=== PATIENT | female | born 1980 | race Caucasian/White ===

== ENCOUNTER 2018-06-13 10:53 | Outpatient (REF) | payer MEDICAID, SELFPAY ==
--- NOTE | 2018-06-13 10:30 | PAPFT_PTH ---
PATIENT: Tri Dias LOC: [facility] U#:[id number] AGE/SX: 38/F ROOM: RE06/13/[address]: TAYLOR Lovett : 1980 BED: DIS: 06/13/2018 SPEC #: [id number] RECD: 06/13/18 12:55 STATUS: DELFIN REQ #: [id number] LILI: 06/13/18 10:[address]: Mitzi Leon DEPT: [facility] Cytology RECD BY: Laura Beltran ENTERED: 06/13/18 12:55 SP TYPE: PAPFT CHRISTOPHER DR: Eric Santoyo MD Tissues: 1 - CX/ENDOCX FOR PAP SMEARS Procedures: PAP THIN PREP/UVM Screening HPV DNA PROBE Comments: [id number]
[2018-06-16 15:15] LABS: Chlamydia Result Negative; GC Result Negative; Specimen Description CERVIX
== END 2018-06-13 11:13 ==
LOC: LBN 10:53
PROVIDERS: PCP Family Medicine; Visit Provider Nurse Practitioner Family
DX: Z11.3 Encounter for screening for infections with a predominantly sexual mode of transmission (principal); Z12.4 Encounter for screening for malignant neoplasm of cervix; Z11.51 Encounter for screening for human papillomavirus (HPV)
CPT/HCPCS: 87491; 87591; 88142; 87624

== ENCOUNTER 2018-06-16 00:27 | Outpatient (CLI) | payer MEDICAID, SELFPAY ==
--- NOTE | 2018-06-16 12:00 | DI.MAMMO_ITS ---
SYMPTOMS/DIAGNOSIS: SCREENING, Z12.31 BILATERAL SCREENING MAMMOGRAM: Mammograms were interpreted according to the usual protocol including computer analysis with CAD system, tomosynthesis and C view imaging. This is a baseline examination. The patient has a strong family history of breast cancer. The breasts are composed of scattered fibroglandular densities, breast density category B. In the central subareolar region of the right breast , there is a mainly circumscribed area of nodularity measuring 9 mm in diameter. Other nodular densities are questioned in the lateral right breast. Spot compression views and ultrasound are requested for further evaluation. No suspicious abnormality seen in the left breast. There are no suspicious calcifications in either breast. IMPRESSION: Left breast category 1, negative. Right breast category 0. MQSA ASSESSMENT OF FINDINGS: Incomplete: Needs additional imaging evaluation. Category 0. Patient will receive a letter notifying them of these results. MQSA ASSESSMENT OF FINDINGS: Negative. Category 1. Patient will receive a letter notifying them of these results. BI-RADS category B. There are scattered areas of fibroglandular density.
== END 2018-06-16 00:47 ==
PROVIDERS: PCP Family Medicine; Visit Provider Nurse Practitioner Family
DX: Z12.31 Encounter for screening mammogram for malignant neoplasm of breast (principal); R92.8 Other abnormal and inconclusive findings on diagnostic imaging of breast; Z80.3 Family history of malignant neoplasm of breast
CPT/HCPCS: 77063; 77067

== ENCOUNTER 2018-06-25 01:25 | Outpatient (CLI) | payer MEDICAID, SELFPAY ==
--- NOTE | 2018-06-25 09:33 | DI.COMBO_ITS ---
SYMPTOM/DIAGNOSIS: F/U MAMMO, RT NODULARITY RIGHT BREAST ADDITIONAL VIEWS AND RIGHT BREAST ULTRASOUND: Additional images are interpreted according to the usual protocol including tomosynthesis and 2D imaging. The images reveal the breast is of moderate radiodensity. There is a small rounded, well circumscribed area of increased density in the subareolar portion of the right breast which is nonspecific in appearance. Also there is an ill defined density in the lateral portion of the right breast. Further assessment with ultrasound is recommended. Right breast ultrasound was performed and no cyst or mass is demonstrated. SUMMARY: Small densities are identified in the right breast as described above. At ultrasound, no definite abnormality is identified. Follow up right breast imaging at 6 months is recommended for further review. Breast density, category B. Category 3. MQSA ASSESSMENT OF FINDINGS: Probably benign. Six month follow-up recommended. Category 3. Patient will receive a letter notifying them of these results. BI-RADS category B. There are scattered areas of fibroglandular density.
== END 2018-06-25 01:45 ==
PROVIDERS: PCP Family Medicine; Visit Provider Nurse Practitioner Family
DX: R92.8 Other abnormal and inconclusive findings on diagnostic imaging of breast (principal)
CPT/HCPCS: 76642; 77063; 77067

== ENCOUNTER 2018-08-21 16:26 | Outpatient (CLI) | payer OTHER, SELFPAY ==
--- NOTE | 2018-08-21 14:30 | DI.RAD_ITS ---
SYMPTOMS/DIAGNOSIS: ACUTE PAIN OF LEFT KNEE, M25.562 LEFT KNEE: There are rather severe degenerative changes involving the knee without evidence of significant medial or lateral joint space narrowing. The patient is status post ACL repair. A suture anchor is positioned over the lateral cortex of the distal femur in conjunction with the ACL surgery. There is a probable joint effusion. SUMMARY: Chronic changes involving the left knee in this patient who is status post ACL repair. Also, there is apparent joint effusion. If there is further question regarding the status of the ACL graft or other internal derangement in this patient, then further assessment with MRI could be considered.
== END 2018-08-21 16:46 ==
PROVIDERS: PCP Family Medicine; Visit Provider Nurse Practitioner Family
DX: M25.562 Pain in left knee (principal); M25.462 Effusion, left knee; M17.12 Unilateral primary osteoarthritis, left knee; Z98.890 Other specified postprocedural states
CPT/HCPCS: 73562

== ENCOUNTER 2021-09-01 11:12 | Outpatient (CLI) | payer OTHER, SELFPAY ==
--- NOTE | 2021-09-01 11:00 | RT.EKG_ITS ---
APPROVED REPORT Exam: Resting ECG Reason for Exam: Irregular pulse Patient Location: O HR:76 bpm ECG Measurements Heart Rate 76 AXIS MN 128 P 63 QRSd 79 QRS 5 QT 369 T 32 QTc 415 Conclusion Sinus rhythm...normal P axis, V-rate 60- 99 Normal Electrocardiogram
== END 2021-09-01 11:13 | disposition home or self-care (01) ==
LOC: DI.CM 11:13
PROVIDERS: PCP Nurse Practitioner Family; Visit Provider Nurse Practitioner Family
DX: R00.0 Tachycardia, unspecified (principal); R09.89 Other specified symptoms and signs involving the circulatory and respiratory systems
CPT/HCPCS: 93010

== ENCOUNTER 2021-10-09 01:05 | Outpatient (RCR) | payer OTHER, SELFPAY ==
--- NOTE | 2021-10-09 11:00 | HOLTER_ITS ---
APPROVED REPORT Conclusion This is a 48-hour Holter monitor ordered for palpitations Predominant rhythm is sinus with an average heart rate of 88. Minimum was 67, maximum 127 There were very rare atrial premature beats There were occasional ventricular ectopic beats. There were several episodes of nonsustained ventric ular tachycardia, the longest of which lasted 74 beats in duration at a heart rate of 131. Patient symptoms corresponded to nonsustained ventricular tachycardia
== END 2021-10-23 23:59 | disposition home or self-care (01) ==
LOC: RT 01:05
PROVIDERS: PCP Nurse Practitioner Family; Visit Provider Nurse Practitioner Family
DX: R00.2 Palpitations (principal)
CPT/HCPCS: 93225; 93226

== ENCOUNTER 2021-10-11 02:27 | Outpatient (CLI) | payer OTHER, SELFPAY ==
[2021-10-11 13:46] LABS: Hemoglobin A1C 5.6 % (<5.7)
[2021-10-11 14:08] LABS: Anion Gap 7.8 mmol/L (3-11); BUN 9 mg/dL (7-18); CO2 28.2 mmol/L (21.0-32.0); CREATININE 0.9 mg/dL (0.55-1.02); Calcium 9.7 mg/dL (8.5-10.1); Calculated LDL 91 mg/dL (<100); Chloride 103 mmol/L (98-107); Cholesterol 157 mg/dL (<200); Glucose 88 mg/dL (74-106); HDL Cholesterol 52 mg/dL (40-60); Potassium 4.7 mmol/L (3.5-5.1); Sodium 139 mmol/L (136-145); Triglyceride 72 mg/dL (<150)
== END 2021-10-11 02:28 | disposition home or self-care (01) ==
LOC: LBO 02:27
PROVIDERS: PCP Nurse Practitioner Family; Visit Provider Nurse Practitioner Family
DX: Z00.00 Encounter for general adult medical examination without abnormal findings (principal)
CPT/HCPCS: 36415; 80048; 80061; 83036

== ENCOUNTER 2021-10-12 11:32 | Emergency (ER) | payer OTHER, SELFPAY ==
[2021-10-12] VITALS (26 sets, daily range): BP systolic 135–185; BP diastolic 69–120; PULSE 55–101; RESP 10–36; O2SAT 98–100
--- NOTE | 2021-10-12 11:30 | RT.EKG_ITS ---
APPROVED REPORT Exam: Resting ECG Reason for Exam: sob Patient Location: E HR:86 bpm ECG Measurements Heart Rate [address] 134 P 51 QRSd 81 QRS 1 QT 369 T 40 QTc 441 Conclusion Sinus rhythm...normal P axis Probable left atrial enlargement...P >50mS, <-0.10mV V1
--- NOTE | 2021-10-12 11:45 | DI.RAD_ITS ---
Exam(s) XR PORTABLE CHEST AP EXAM: XR PORTABLE CHEST AP CLINICAL HISTORY: Palpitations TECHNIQUE: 2D digital imaging was performed of the chest. One image was obtained. An AP view was ob tained. COMPARISON: No exams were available for comparison FINDINGS: MEDIASTINUM: Normal. HEART: Normal. PULMONARY VASCULATURE: Normal. LUNGS: Clear. PLEURAL SPACE: No pleural effusion or pneumothorax. BONE:Within normal limits for the patient's age. OTHER FINDINGS:Normal. IMPRESSION: No acute pulmonary findings. DATA REPOSITORY: RADIATION DOSE DELIVERED:
--- NOTE | 2021-10-12 11:59 | W.ED.GENAD ---
Discharge Plan Disposition Patient Disposition: HOME Condition: Improving Discharge Details Clinical Impression: Frequent PVCs Primary Care Provider: Carol Vo ED Provider: Joseluis Correa Home Meds and New Rx's Prescriptions: New metoprolol succinate 25 mg tablet extended release 24 hr 25 mg PO DAILY Qty: 30 0RF metoprolol succinate 25 mg tablet extended release 24 hr 25 mg PO DAILY Qty: 7 0RF Continued venlafaxine [Effexor XR] 150 mg capsule,extended release 24hr 150 mg PO DAILY Qty: 90 4RF Discharge Instructions Instructions: Heart Palpitations (ED) Additional Instructions: Please take metoprolol once daily as prescribed. We have provided you with a short-term prescription as well as one for 30 days. Please call [facility] tomorrow and asked to speak Nancy Shi their child care as she may be able to help you with filling the prescription Our care management team will arrange a follow-up for you with the electrophysiology department at [facility]. Return if you have persistent palpitations, difficulty breathing, develop chest pain, or any other acute concerns. Medical Decision Making 41-year-old female with a history of years of intermittent episodes of palpitations she says lasts from seconds to minutes and extinguishing on their own. She was evaluated with a Holter monitor this week and called into the ER today after it revealed nonsustained ventricular tachycardia. Patient arrives in no distress, she is placed on a bus driver/monitor. While interviewed initially she demonstrates 3-6 beat runs of monomorphic ventricular tachycardia. Patient placed on a bus driver/monitor, IV access established and screening laboratories obtained. Patient given fluid bolus and 2 g of magnesium. Diagnostic studies note a white count of 6, hematocrit 36, platelets 270 chemistries are reassuring, note of magnesium 1.7, TSH 1.8. Chest x-ray without findings. I reviewed the patient's Holter monitor report which reveals a predominant sinus rhythm with an average heart rate of 88, minimum with 2 7, maximum 127. Note of occasional ventricular ectopic beats. Several episodes of nonsustained ventricular tachycardia, the longest of which lasted 74 beats at a heart rate of 131. Patient given 2 g of magnesium with improvement of PVCs on the monitor. In order to rule out underlying structural heart disease I obtained a surface echocardiogram. Echocardiogram unremarkable and no evidence of structural heart disease. Patient subjectively and objectively had improvement of her palpitations and decreased evidence of PVCs on the monitor following 2 g of magnesium. She was observed on bus driver/monitor and repeat troponin obtained and negative. I did discuss the case with on-call cardiology, Dr. Christine, who recommends follow-up with electrophysiology. Patient may be a candidate for ablation. I will place her on once daily beta-angy for ease of use versus verapamil given its multi dose schedule. As the patient utilizes a mail order pharmacy, she was given two prescriptions one for 30 days worth of metoprolol as well as one for 7 days. HPI General Mode of arrival: ambulatory. Date/Time Provider Initiated Documentation: 10/12/21 11:47. Limitations to Documentation: no limitations. Information obtained by: patient. History of Present Illness 41 year old F presents to the emergency department with the chief complaint of Intermittent palpitations for months to years, Holter monitor this week, described as moderate, and is localized to the chest. Patient reports no radiation. Patient started experiencing this year(s) and it has been intermittent. improves with No relieving factors improve symptom(s), No exacerbating factors reported . Patient notes shortness of breath; denies chest pain, syncope and weakness. Patient did receive the following treatments prior to arrival, none Related Data Home Medications Medication Instructions Recorded Confirmed venlafaxine 150 mg 150 mg PO DAILY #90 tab-cap 09/01/21 10/12/21 capsule,extended release 24 hr (Effexor XR) metoprolol succinate 25 mg 25 mg PO DAILY #30 tab 10/12/21 tablet,extended release 24 hr metoprolol succinate 25 mg 25 mg PO DAILY #7 tab 10/12/21 tablet,extended release 24 hr Previous Rx's Medication Instructions Recorded venlafaxine 150 mg 150 mg PO DAILY #90 tab-cap 09/01/21 capsule,extended release 24 hr (Effexor XR) metoprolol succinate 25 mg 25 mg PO DAILY #30 tab 10/12/21 tablet,extended release 24 hr metoprolol succinate 25 mg 25 mg PO DAILY #7 tab 10/12/21 tablet,extended release 24 hr Allergies Allergy/AdvReac Type Severity Reaction Status Date / Time Sulfa (Sulfonamide Allergy Severe HIVES Unverified 10/12/21 11:59 Antibiotics) methylprednisolone AdvReac Intermediate MUSCLE Unverified 10/12/21 11:59 PAIN, JITTERY amoxicillin trihydrate AdvReac Mild GI UPSET Unverified 10/12/21 11:59 [From Augmentin] potassium clavulanate AdvReac Mild GI UPSET Unverified 10/12/21 11:59 [From Augmentin] General Stated Complaint: Palpitatns LAMONT: 2 Review of Systems Narrative: Otherwise well. States that palpitations for years. No significant exacerbating or ameliorating factors. 8 systems were reviewed and otherwise negative PFSH All Active Problems (Updated 10/12/21 @ 16:09 by Carol Vo NP) Nonsustained ventricular tachycardia (Chronic) Frequent PVCs (Acute) Major depressive disorder (Chronic) Generalized anxiety disorder (Chronic) Obesity (Chronic) Medical History Cigarette smoker Surgical History History of arthroplasty of left knee History of section History of repair of anterior cruciate ligament of left knee (2011) S/P left knee arthroscopy (2012) Family History Mother Breast cancer tested BRCA negative and Tri herself was also tested and was negative Father No problems noted. Brother No problems noted. Brother No problems noted. Sister No problems noted. Sister No problems noted. Son No problems noted. Son No problems noted. Maternal Grandfather Heart disease Hyperlipidemia Hypertension Maternal Grandmother Breast cancer x 2 Colon cancer Ovarian cancer Paternal Grandfather Heart disease Myocardial infarction Paternal Grandmother No problems noted. Social History Smoking/Tobacco Use Status: Current every day Tobacco Type: e-cigarettes Counseling given: provider counseling Smoking risk assessment performed?: Yes Alcohol Intake: current Alcohol Intake frequency: a few times a month Alcohol type: wine Drug use: Daily Substance use type: marijuana Counseling provided: other Details: daily use. referral to [facility] Household members: children Sexually active: Yes Do you think of yourself as: straight/heterosexual Current gender identity: female Do you feel safe at home: Yes Do you feel safe in your relationship?: Yes Female Reproductive History Menstrual control method: none and other (unable to get after severe preeclampsia in number 2) History History 2 Para 2 Hx # Term Pregnancies 1 Multiple births Hx # Pregnancies 1 Ectopic pregnancies AB induced Hx Number of Living Children 2 AB spontaneous Exam Narrative Exam Narrative: GEN: awake, alert, oriented 3. Pleasant, well groomed, interactive. HEAD: Normocephalic, atraumatic ENT: Mucous membranes moist, oropharynx unremarkable, External ear exam unremarkable EYES: PERRL, EOMI NECK: Full ROM, no ERIC, no menigismus CHEST/RESP: Nontender, clear to auscultation bilateral, no wheeze/rhonchi/rales CARDIOVASCULAR: RRR, no murmur, rub thiago. 2+ Rad pulse bilateral ABDOMEN: Soft, nontender, no mass. +Bowel sounds EXT: Full ROM, no edema, no rash Neuro: Grossly normal neurologic exam, conversant, interactive. Psych: Speech fluent, thoughts congruent, affect normal Course Vital Signs Vital signs: Temperature Source Skin 10/12/21 11:36 Respiratory Effort 10/12/21 11:40 Oxygen Delivery Method Room Air 10/12/21 11:36 Oxygen Flow Rate 0 10/12/21 11:36 Pain Level 0 10/12/21 11:36
[2021-10-12] MEDS: MAGNESIUM SULFATE 2 GM/50 ML BAG IVPB (12:08)
[2021-10-12] MEDS: Normal Saline 1,000 ML 1000 ML IV (12:08)
[2021-10-12 12:26] LABS: Abs Immature Grans 0.03 10^3/uL (0.0-0.06); Absolute Basophil Count 0.07 10^3/uL (0.0-0.2); Absolute Eosinophil Count 0.17 10^3/uL (0.0-0.7); Absolute Lymphocyte Count 2.62 10^3/uL (1.2-3.4); Absolute Monocyte Count 0.45 10^3/uL (0.1-0.8); Absolute Neutrophil Count 2.84 10^3/uL (1.2-6.7); Basophils % 1.1; Eosinophils % 2.8; HCT 36.8 % (36.0-46.0); HGB 12.1 g/dL (11.2-15.7); Immature Grans % 0.5; Lymphocytes % 42.4; MCH 30.2 pg (27.0-33.0); MCHC 32.9 % (32.0-36.0); MCV 91.8 fL (80-95); MPV 11.5 fL (8.0-11.0); Monocytes % 7.3; Neutrophils % 45.9; Nucleated RBC 0 %; Platelet Count 270 10^3/uL (130-400); RBC 4.01 10^6/uL (3.93-5.22); RDW 11.9 % (11.7-14.6); RDW-SD 40.7 fL; WBC 6.18 10^3/uL (4.4-10.8)
--- NOTE | 2021-10-12 12:30 | DI.US_ITS ---
APPROVED REPORT EXAM: Comprehensive 2D, Doppler, and color-flow Echocardiogram Patient Location: ER Room/Bed: 3 Copper Plate Printer: Silvia West RDCS (AE) Indications: Palpitations/NSVT Other Information Study Quality: Adequate. Technically limited study due to inability to position patient exam done sup ine bedside er. Conclusion Normal left ventricular wall thickness and chamber size. Estimated ejection fraction is 60%. Wall m otion is normal Normal right ventricular size and systolic function Both atria are normal in size There is no structural valvular disease Trace mitral and pulmonic regurgitation. Mild tricuspid regurgitation with normal estimated right ve ntricular systolic pressure 23 mmHg Wall motion Left Ventricle The left ventricle is normal size. The left ventricular systolic function is normal. The left ventric ular ejection fraction is within the normal range. There is normal left ventricular wall thickness. T here is normal LV segmental wall motion. There is no ventricular septal defect visualized. LVEF is 58 %. Right Ventricle Right ventricle is grossly normal in size. Right ventricular systolic function is grossly normal. The RVSP is 23.4 mmHg. Atria The left atrium size is normal. The right atrium size is normal. The interatrial septum is intact wit h no evidence for an atrial septal defect. Aortic Valve The aortic valve is normal in structure. Aortic valve is trileaflet. There is no aortic valvular sten osis. No aortic regurgitation is present. Mitral Valve The mitral valve is normal in structure. No evidence of mitral valve stenosis. Trace mitral regurgita tion.. Tricuspid Valve The tricuspid valve is normal in structure. There is no tricuspid valve stenosis. Mild tricuspid regu rgitation. Pulmonic Valve The pulmonary valve is normal in structure. There is no pulmonic valvular stenosis. Trace pulmonic re gurgitation. Great Vessels The aortic root is normal in size. The ascending aorta is normal in size. Aortic arch is normal in ca liber. IVC is normal in size and collapses >50% with inspiration. Pericardium There is no pericardial effusion. 2D Dimensions IVSD d PLAX 0.88 cm F: 0.6-1.0 LV Vol A2C d MOD 144.2 mL LVPW d PLAX 0.87 cm F: 0.6 - 1.0 LV Vol A4C d MOD 158.4 mL LVID d PLAX 4.78 cm F: 3.8 - 5.2 LA vol/ BSA A4C s A-L 35.6 mL/m2 LVDs 3.30 cm F: 2.2 - 3.5 LA Area A4C s MOD 21.86 cm2 Ao Root d 2.86 cm F: 2.7 - 3.3 LV EF A4C MOD 57.9 % RA Area A4C 13.71 cm2 LV EF A2C MOD 58.2 % RA Vol/ BSA A4C s A-L 17.5 mL/m2 LV EF Biplane MOD 58.7 % Ao Asc Diam d 2.88 cm F: 2.3 - 3.1 SV 91.53 mL LV EF Teichholz 57.4 % SV Index 44.64 mL/m2 LVEF (Albarado's) 58.67 % F: 54 - 74 LV Volume 116.04 mL F: 46 - 106 LV Volume Index 56.60 mL/m2 F: 29 - 61 LV Vol Biplane MOD 156.0 mL FS 30.15 % M-Mode TAPSE 2.14 cm (M/F) >1.7 LV Diastology MV E' medial 0.135 (>0.07 m/s) E/A Ratio 2.0 LV E/e MED 6.65 (<14) MV E Vmax 0.90 (0.4-1.3 m/s) MV E' lateral 0.154 (>0.1 m/s) MV A Vmax 0.45 (0.4-1.3 m/s) LV E/e LAT 5.80 (<14) MV E/A Ratio 1.95 MV E/E' medial 6.68 MV E/E' lateral 5.83 Aortic Valve LVOT Area 3.21 cm2 AoV Area Vmax 2.13 cm2 LVOT Vmax 0.75 m/s AoV Area/ BSA (Vmax) 1.04 cm2/m2 LVOT Mean Corbin. 0.47 m/s EVE Mean Corbin. 1.89 cm2 LVOT Peak Grad 2.2 mmHg EVE Mean Corbin. Index 0.92 cm2/m2 LVOT Mean Grad 1.1 mmHg LVOT VTI 0.159 m LVOT Diam s 2.00 cm AoV Vmax 1.13 m/s Velocity Ratio 0.66 AoV Mean Corbin. 0.80 m/s AoV Peak Grad 5.1 mmHg LVOT SV 50.86 mL AoV Mean Grad 2.8 mmHg AoV VTI 0.260 m AoV Area VTI 1.96 cm2 AoV Area/ BSA (VTI) 0.95 cm/m2 Mitral Valve MV DT 196 (160-240 msec) MV PHT 57 msec MV Area PHT 3.87 cm2 MV VTI 0.286 m MV Area VTI 1.78 (4.0-6.0 cm2) Pulmonary Valve PV Vmax 1.15 (0.5-1.5 m/s) RVOT Peak Gr. 1.90 mmHg PV Peak Grad 5.3 mmHg RVOT Mean Gr. 0.95 mmHg PV Mean Grad 2.7 mmHg RVOT VTI 0.158 m PV VTI 0.240 m RVOT Vmax 0.69 m/s Tricuspid Valve TR Peak Grad 20.4 mmHg TR Vmax 2.26 m/s RA Pressure 3.00 mmHg RVSP (TR) 23.4 mmHg
[2021-10-12 12:55] LABS: ALT 47 U/L (14-59); AST 28 U/L (15-37); Albumin 3.8 g/dL (3.4-5.0); Alkaline Phosphatase 74 U/L (46-116); Anion Gap 10.2 mmol/L (3-11); BUN 10 mg/dL (7-18); Bilirubin, Total 0.6 mg/dL (0.2-1.0); CO2 25.8 mmol/L (21.0-32.0); CREATININE 0.9 mg/dL (0.55-1.02); Calcium 9.2 mg/dL (8.5-10.1); Chloride 102 mmol/L (98-107); Glucose 90 mg/dL (74-106); Magnesium 1.7 mg/dL (1.8-2.4); Potassium 3.8 mmol/L (3.5-5.1); Sodium 138 mmol/L (136-145); Total Protein 7.6 g/dL (6.4-8.2); Troponin I < 50 ng/L (<or=60)
--- NOTE | 2021-10-12 14:01 | NUR.NOTE ---
Nursing Note: Referral given to Care management for [facility] Electrophysiology; NSVT per Dr Christine; within 1 to 2 weeks. Stacy Joyner
[2021-10-12] MEDS: Metoprolol CR 25 MG TABCR PO ×2 (14:51→16:31)
[2021-10-12 15:28] LABS: Troponin I < 50 ng/L (<or=60)
--- NOTE | 2021-10-13 09:35 | CMACTNOTE_ITS ---
- If Service Date Differs Date of service: 10/13/21 Time of Service: 09:35 Care Management Activity Note Tri is seen in the ED for frequent PVCs. At the request of ED provider, CM coordinates a referral to [facility] [place] (Cardiovascular) to assist Tri in obtaining an appointment for further evaluation and treatment.
== END 2021-10-12 16:32 | disposition home or self-care (01) ==
PROVIDERS: Emergency Provider Emergency Medicine; PCP Nurse Practitioner Family
DX: R00.2 Palpitations (principal); I47.2 Ventricular tachycardia; I36.1 Nonrheumatic tricuspid (valve) insufficiency; I49.3 Ventricular premature depolarization; R06.02 Shortness of breath; R00.0 Tachycardia, unspecified; F17.290 Nicotine dependence, other tobacco product, uncomplicated
CPT/HCPCS: 36415; 80053; 93005; 96361; 96365; 96366; 99285; 71045; 83735; 84443; 84484; 85025; 93010; 93306; 99284

== ENCOUNTER 2022-09-06 04:06 | Outpatient (CLI) | payer OTHER, SELFPAY ==
[2022-09-06 16:45] LABS: Abs Immature Grans 0.05 10^3/uL (0.0-0.06); HCT 39.4 % (36.0-46.0); HGB 13.1 g/dL (11.2-15.7); MCH 30.3 pg (27.0-33.0); MCHC 33.2 % (32.0-36.0); MCV 91 fL (80-95); MPV 11.4 fL (8.0-11.0); Platelet Count 294 10^3/uL (130-400); RBC 4.33 10^6/uL (3.93-5.22); RDW 12.4 % (11.7-14.6); RDW-SD 41.1 fL; WBC 13.21 10^3/uL (4.4-10.8)
[2022-09-06 16:57] LABS: Absolute Basophil Count 0.13 10^3/uL (0.0-0.2); Absolute Lymphocyte Count 5.68 10^3/uL (1.2-3.4); Absolute Monocyte Count 1.45 10^3/uL (0.1-0.8); Absolute Neutrophil Count 5.94 10^3/uL (1.2-6.7); Atypical Lymphocytes % 6; Bands % 1
[2022-09-06 16:58] LABS: Diff Comment Manual Differential; RBC Morphology Normal
[2022-09-06 18:24] LABS: ALT 59 U/L (14-59); AST 35 U/L (15-37); Alkaline Phosphatase 108 U/L (46-116); Anion Gap 10.5 mmol/L (3-11); BUN 12 mg/dL (7-18); Bilirubin, Total 0.5 mg/dL (0.2-1.0); CO2 25.5 mmol/L (21.0-32.0); CREATININE 0.9 mg/dL (0.55-1.02); Calcium 9.3 mg/dL (8.5-10.1); Chloride 101 mmol/L (98-107); Estimated GFR 82.88 (mL/min/1.73m2); Glucose 83 mg/dL (74-106); Potassium 3.7 mmol/L (3.5-5.1); Sodium 137 mmol/L (136-145); TSH (W/Ref FT4) 2.43 uIU/mL (0.36-3.74); Total Protein 8.1 g/dL (6.4-8.2)
== END 2022-09-06 04:07 | disposition home or self-care (01) ==
LOC: LBO 04:06
PROVIDERS: PCP Nurse Practitioner Family; Visit Provider Nurse Practitioner Women's Health
DX: R63.4 Abnormal weight loss (principal); N93.8 Other specified abnormal uterine and vaginal bleeding
CPT/HCPCS: 36415; 80053; 84443; 85025

== ENCOUNTER 2022-09-21 00:44 | Outpatient (CLI) | payer OTHER, SELFPAY ==
--- NOTE | 2022-09-21 07:36 | DI.US_ITS ---
Exam(s) US PELVIS TRANSVAGINAL EXAM: US PELVIS TRANSVAGINAL CLINICAL HISTORY: abnl uterine bleeding, bulky uterus,n93.9. TECHNIQUE: Transabdominal and transvaginal pelvic ultrasound was performed using standard protocol. COMPARISON: None for comparison. FINDINGS: KIDNEYS: Limited renal evaluation is unremarkable. UTERUS: Position: Anteverted. Size: 8.9 long by 5.0 AP by 4.5 transverse cm Endometrium: 0.6 cm. Normal for patient's menstrual status. Myometrium: There is a 1.2 x 1.6 x 1.3 cm hypoechoic mass in the anterior uterine body most suggestiv e of a fibroid. Cervix: Unremarkable. OVARIES: Right: 2.3 x 1.6 x 2.7 cm Cyst or mass: No suspicious cystic or solid masses. Incidental note is made of 2 small para ovarian cysts. Left: 3.6 x 1.9 x 1.9 cm Cyst or mass: No suspicious cystic or solid masses. DOPPLER: Color: Symmetric and uniform flow to both ovaries. CUL-DE-SAC: Free fluid: None. Other: None. IMPRESSION: 1. Limited evaluation of the kidneys is unremarkable. 2. Small uterine fibroid. Otherwise unremarkable uterus and endometrial stripe. 3. Unremarkable bilateral ovaries. DATA REPOSITORY:
== END 2022-09-21 01:04 ==
LOC: DI 00:44
PROVIDERS: PCP Nurse Practitioner Family; Visit Provider Nurse Practitioner Women's Health
DX: N93.8 Other specified abnormal uterine and vaginal bleeding (principal); D25.9 Leiomyoma of uterus, unspecified; N83.291 Other ovarian cyst, right side
CPT/HCPCS: 76830; 76856

== ENCOUNTER 2024-06-15 16:33 | Outpatient (CLI) | payer OTHER, SELFPAY ==
[2024-06-15 17:22] LABS: Abs Immature Grans 0.01 10^3/uL (0.0-0.06); Absolute Basophil Count 0.11 10^3/uL (0.0-0.2); Absolute Eosinophil Count 0.39 10^3/uL (0.0-0.7); Absolute Lymphocyte Count 2.64 10^3/uL (1.2-3.4); Absolute Monocyte Count 0.79 10^3/uL (0.1-0.8); Absolute Neutrophil Count 3.39 10^3/uL (1.2-6.7); Basophils % 1.5 %; Eosinophils % 5.3 %; HCT 37.9 % (36.0-46.0); HGB 12.4 g/dL (11.2-15.7); Immature Grans % 0.1 %; MCH 30.9 pg (27.0-33.0); MCHC 32.7 % (32.0-36.0); MCV 95 fL (80-95); MPV 12.2 fL (8.0-11.0); Monocytes % 10.8 %; Neutrophils % 46.3 %; Platelet Count 230 10^3/uL (130-400); RBC 4.01 10^6/uL (3.93-5.22); RDW 12.9 % (11.7-14.6); RDW-SD 45.1 fL; WBC 7.33 10^3/uL (4.4-10.8)
[2024-06-15 17:46] LABS: ALT 48 U/L (14-59); AST 24 U/L (15-37); Albumin 3.4 g/dL (3.4-5.0); Alkaline Phosphatase 109 U/L (46-116); Anion Gap 7.5 mmol/L (3-11); BUN 16 mg/dL (7-18); Bilirubin, Total 0.59 mg/dL (0.2-1.0); CO2 27.5 mmol/L (21.0-32.0); Calcium 9.1 mg/dL (8.5-10.1); Chloride 104 mmol/L (98-107); Estimated GFR 72.13 (mL/min/1.73m2); Glucose 75 mg/dL (74-106); Potassium 4.1 mmol/L (3.5-5.1); Sodium 139 mmol/L (136-145); Total Protein 7.5 g/dL (6.4-8.2)
== END 2024-06-15 16:34 | disposition home or self-care (01) ==
LOC: LBO 16:33
PROVIDERS: PCP Nurse Practitioner Family; Visit Provider Obstetrics & Gynecology Gynecology
DX: Z01.818 Encounter for other preprocedural examination (principal)
CPT/HCPCS: 36415; 80053; 86850; 86900; 86901; 85025

== ENCOUNTER 2024-06-17 03:37 | Outpatient (CLI) | payer OTHER, SELFPAY | END 2024-06-17 03:38 | disposition home or self-care (01) | LOC: LBO 03:37 | PROVIDERS: PCP Nurse Practitioner Family; Visit Provider Obstetrics & Gynecology Gynecology | DX: I10 Essential (primary) hypertension (principal); N93.9 Abnormal uterine and vaginal bleeding, unspecified | CPT/HCPCS: 86870; 86880; 86900; 86905; 86970 ==

== ENCOUNTER 2024-06-17 12:33 | Outpatient (REF) | payer OTHER, SELFPAY ==
--- NOTE | 2024-06-17 11:15 | ENDOMET_PTH ---
PATIENT: Tri Dias LOC: [facility] U#:[id number] AGE/SX: 44/F ROOM: RE06/17/[address]: Isadora Monson : 1980 BED: DIS: 06/17/2024 SPEC #: [id number] RECD: 06/17/24 13:31 STATUS: DELFIN REShashi #: [id number] LILI: 06/17/24 11:[address]: Isadora Monson DEPT: Surgical Specimen RECD BY: Laura Beltran ENTERED: 06/17/24 13:31 SP TYPE: Endomet OT DR: TALYOR Oswald Tissues: 1 - ENDOMETRIUM BX/CURRETTE Procedures: GROSS AND MICRO LEVEL 4 Comments: [id number]
== END 2024-06-17 12:34 | disposition home or self-care (01) ==
LOC: LBN 12:33
PROVIDERS: PCP Nurse Practitioner Family; Visit Provider Obstetrics & Gynecology Gynecology
DX: I10 Essential (primary) hypertension (principal); N93.9 Abnormal uterine and vaginal bleeding, unspecified
CPT/HCPCS: 88305

== ENCOUNTER 2024-06-29 12:49 | Outpatient (CLI) | payer OTHER, SELFPAY ==
--- OUTSIDE RECORDS SUMMARY | 2024-06-29 12:51 | XMS_ITS | Encounter Summary ---
Author Organization [facility] Address [address] [place] [address] Care Team Providers Care Spout Liner Helper Name Role Phone Unavailable Primary Care Provider Unavailabl e Encounter Details Date Type Department Care Team (Late st Contact Info) Description 01/21/2009 Orders Only [facility] Laboratory Services - [facility] [address] [place] [address] Mitzi Leon, [facility] [address] [place] [address] [place] [id number] Social History Tobacco Use Types Packs/Day Years Used Date Smoking Tobacco: Never Assessed Sex and Gender Information Value Date Recorded Sex Assigned at Not on file Gender Identity Not on file Sexual Orientation Not on file documented as of this encounter Plan of Treatment Not on file documented as of this encounter Procedures Procedure Name Priority Date/Time Associated Diagnosis Comments CYTOPATHOLOGY Routine 01/21/2009 0:00 EDT documented in this encounter Results * CYTOPATHOLOGY (01/21/2009 0:00 EDT) Pathology Report: CYTOPATHOLOGY REPORT ? Reports generated via electronic interface contain original data; ? however they are lacking the format of the original report. ? Caution should be taken when reading/interpreti ng unformatted reports. ? Name: ? TRI DIAS ? Accession #: ? [id number] ? : ? 1980 (Age: 29) ??F ?Collect Date: ? 01/21/2009 ? Location: ? [facility] ? Receive Date: ? 01/24/2009 ? Provider: ?MITZI WENDY COLLECTIONS TECHNICIAN ? Copy to: ? Specimen/Source: ?Pap Test, Cervix/Endocervix, ThinPrep Imaging System ? with manual evaluation ? Last Menstrual Period: ? 05/14/09 ? Other: ? HPVA - HPV testing requested if ASC-US on the current ThinPrep Pap test. ? SPECIMEN ADEQUACY ? Satisfactory for Evaluation ? - transformation zone component present ? - scant squamous epithelial component secondary to excessive inflammation ? GENERAL CATEGORIZATION ? Negative for Intraepithelial Lesion or Malignancy ? Document reviewed and electronically signed by: ? Lynan Fazal, CT(ASCP) ? Report Date: ??01/25/2009 13:13 ? End of Report ? MASON MCKINLEY 01/21/2009 01/24/2009 Mitzi Leon COLLECTIONS TECHNICIAN PATHOLOGY ORDERABLES MASON MCKINLEY [address] [place] [address] documented in this encounter Visit Diagnoses Not on filedocumented in this encounter
--- OUTSIDE RECORDS SUMMARY | 2024-06-29 12:51 | XMS_ITS | Encounter Summary ---
[place] [address] Care Team Providers Care Hand Edge Bander Name Role Phone Carol Vo APRN Primary Care Provider [phone] Encounter Details Date Type Department Care Team (Latest Contact Info) Description 10/16/2023 3:30 PM EST Laboratory Appointment Lab [address] [place] [address] [place] (ventricular tachycardia); Encounter for monitoring flecainide therapy Social History Tobacco Use Types Packs/Day Years Used Date Smoking Tobacco: Former Cigarettes 0.5 14 0 10/2006 - 10/2020 Smokeless Tobacco: Never Alcohol Use Standard Drinks/Week Comments Yes 0 (1 standard drink = 0.6 oz pur e alcohol) occ Sex and Gender Information Value Date Recorded Sex Assigned at Not on file Gender Identity Not on file Sexual Orientation Not on file documented as of this encounter Plan of Treatment Not on file documented as of this encounter Procedures Procedure Name Priority Date/Time Associated Diagnosis Comments COMPREHENSIVE METABOLIC PANEL Routine 10/16/2023 2:32 PM EST VT (ventricular tachycardia) Encounter for monitoring flecainide therapy documented in this encounter Results * (ABNORMAL) Comprehensive metabolic panel (non-fasting) (10/16/2023 2:32 PM EST) Glucose 110 65 - 199 mg/dL [facility] Comment:Diabetes: >=200 mg/d L plus symptoms Blood Urea Nitrogen 12 8 - 18 mg/dL [facility] Creatinine 0.87 0.70 - 1.20 mg/dL [facility] Sodium 138 135 - 145 mmol/L [facility] Potassium 4.1 3.5 - 5.0 mmol/L [facility] Comment: Please note: ??Patients with WBC >100,000 may have falsely elevated Potassium levels. ??For accurate Potassium quantification in these patients send serum separator tube (gold top) for subsequent determinations. ??Contact the Clinical Chemistry Laboratory if there are any questions. Chloride 102 98 - 107 mmol/L [facility] Carbon Dioxide 27 22 - 31 mmol/L [facility] Anion Gap 9 5 - 15 mmol/L [facility] Calcium 9.8 8.5 - 10.5 mg/dL [facility] Protein, Total 6.8 6.1 - 8.0 g/dL [facility] Albumin 4.0 3.2 - 5.2 g/dL [facility] Aspartate Aminotransferase 62(H) 0 - 30 unit/L [facility] Alanine Aminotransferase 74(H) 0 - 30 unit/L [facility] Alkaline Phosphatase 130(H) 35 - 105 unit/L [facility] Bilirubin, Total 0.4 0.2 - 1.3 mg/dL [facility] Est Glomerular Filtration Rate 86 >=60 mL/min/1. 73 m?? [facility] Comment: This patient's estimated GFR was calculated using the 2020 CKD-EPI equation. The estimated GFR can vary from the measured GFR by up to 30% in the absence of rapidly changing kidney function. Assessment of the estimated GFR is not appropriate when creatinine concentrations are rapidly changing. For clinical situations in which a more precise estimate of GFR is necessary, consider alternative methods of GFR estimation such as a 24-hour urine creatinine clearance. Assignment of CKD stage 1-5 for patients with an eGFR near the transition point between stages may be based on clinical assessment of muscle mass and symptoms in addition to eGFR. Blood 10/16/2023 2:32 PM EST 10/16/2023 2:43 PM EST Narrative Resulting Agency Comment Spec In Lab Meera Austin APRN CHEMISTRY ORDERABLES [facility] [place] [address] documented in this encounter Visit Diagnoses Diagnosis VT (ventricular tachycardia) Paroxysmal ventricular tachycardia Encounter for monitoring flecainide therapy Encounter for therapeutic drug monitoring documented in this encounter Care Teams Hand Edge Bander Relationship Specialty Start Date End Date Carol Vo APRN [address] [place] [address] PCP - General Family Medicine 10/13/21 documented as of this encounter
--- OUTSIDE RECORDS SUMMARY | 2024-06-29 12:51 | XMS_ITS | Clinical Summary ---
Author Organization [facility] Address [address] [place] [address] Care Team Providers Care Principal Systems Architect Name Role Phone Unknown, Provider Primary Care Provider Unava ilable Encounters Date Type Department Care Team Description 06/17/2024 Lab Requisition [facility] Pathology & Laboratory Medicine - [facility] [address] [place] [address] Isadora Hernandez MD Encounter for other general examination from Last 3 Months Social History Tobacco Use Types Packs/Day Years Used Date Smoking Tobacco: Never Assessed Sex and Gender Information Value Date Recorded Sex Assigned at Not on file Gender Identity Not on file Sexual Orientation Not on file Plan of Treatment Health Maintenance Due Date Last Done Comments Hepatitis C Screen 1980 Hepatitis B Vaccine (1 of - 19+ 3-dose series) 01/05 COVID-19 Vaccine ( season) 2024 Procedures Procedure Name Priority Date/Time Associated Diagnosis Comments SURGICAL PATHOLOGY Today 06/17/2024 11 :15 EDT Encounter for other general examination from Last 3 Months Results * SURGICAL PATHOLOGY (06/17/2024 11:15 EDT) Note to Patient The following pathology results have been interpreted by your pathologist and may be available to you before your health provider has had the opportunity to review them. Please allow time for your provider to receive these results and explore management options, if applicable. 06/22/2024 8:54 EDT [facility] Final Diagnosis A. ENDOMETRIUM, BIOPSY: - Proliferative endometrium. 06/22/2024 8:54 EDT [facility] Attestation There was significant resident/fellow involvement in the diagnostic evaluation of this case. By the signature below, the attending physician certifies that they have personally conducted a gross and/or microscopic examination of the described specimens and rendered or confirmed the above diagnosis. 06/22/2024 8:54 EDT [facility] at 0854 Clinical History Abnormal uterine bleeding 06/22/2024 8:54 EDT [facility] Gross Description A. Received in formalin labelled with proper patient identification (initials K, S) and endometrium is an aggregate of soft obrien and brown tissue and translucent white mucus (1.7 x 1.3 x 0.7 cm). Entirely submitted in A1-A2. Neisha Rodriguez 06/18/2024 11:16 06/22/2024 8:54 EDT [facility] Resident/Adam w: Ana María Hayes MD PhD 06/22/2024 8:54 EDT [facility] Performing Lab [facility] 06/22/2024 8:54 EDT [facility] Scanned Images 06/22/2024 8:54 EDT [facility] Tissue ENDOMETRIAL STRUCTURE / Unknown 06/17/2024 11:15 EDT 06/17/2024 18:06 EDT Isadora Hernandez MD PATHOLOGY ORDERABLES [facility] [address] [place] [address] from Last 3 Months Care Teams Principal Systems Architect Relationship Specialty Start Date End Date Unknown, Provider, PCP - General 02/18/09
--- OUTSIDE RECORDS SUMMARY | 2024-06-29 12:51 | XMS_ITS | Encounter Summary ---
Author Organization [facility] Address [address] [place] [address] Care Team Providers Care Product Expert Name Role Phone Unknown, Provider Primary Care Provider Unava ilable Encounter Details Date Type Department Care Team (Late st Contact Info) Description 01/25/2011 Results Only [facility] Laboratory Services - [facility] ([facility] [address] [place] [address] Mitzi Leon, [facility] [address] [address] Social History Tobacco Use Types Packs/Day Years Used Date Smoking Tobacco: Never Assessed Sex and Gender Information Value Date Recorded Sex Assigned at Not on file Gender Identity Not on file Sexual Orientation Not on file documented as of this encounter Plan of Treatment Not on file documented as of this encounter Procedures Procedure Name Priority Date/Time Associated Diagnosis Comments PAP TEST- RESULT ONLY Routine 01/25/2011 0:00 EDT documented in this encounter Results * PAP TEST- RESULT ONLY (01/25/2011 0:00 EDT) Pathology Report: CYTOPATHOLOGY REPORT ? Reports generated via electronic interface contain original data; ? however they are lacking the format of the original report. ? Caution should be taken when reading/interpreti ng unformatted reports. ? Name: ? TRI DIAS ? Accession #: ? [id number] ? : ? 1980 (Age: 31) ??F ?Collect Date: ? 01/25/2011 ? Location: ? [facility] ? Receive Date: ? 01/26/2011 ? Provider: ?MITZI WENDY TRAFFIC SIGNAL MECHANIC ? Copy to: ?DHEERAJ MARI MD ? Specimen/Source: ?Pap Test, Cervix/Endocervix, ThinPrep Imaging System ? with manual evaluation ? Last Menstrual Period: ? 05/12/11 ? Other: ? Additional clinical information: Last pap 06/01/10 neg. ? SPECIMEN ADEQUACY ? Satisfactory for Evaluation ? - transformation zone component present ? - scant squamous epithelial component secondary to excessive inflammation ? - scant squamous epithelial component secondary to excessive mucus ? GENERAL CATEGORIZATION ? Negative for Intraepithelial Lesion or Malignancy ? Document reviewed and electronically signed by: ? Meera Sorto, SCT(ASCP) ? Report Date: ??02/01/2011 15:26 ? End of Report ? [facility] 01/25/2011 01/26/2011 Mitzi Leon TRAFFIC SIGNAL MECHANIC PATHOLOGY ORDERABLES [facility] [address] [place] [address] documented in this encounter Visit Diagnoses Not on filedocumented in this encounter Care Teams Product Expert Relationship Specialty Start Date End Date Unknown, Provider, PCP - General 02/18/09 documented as of this encounter
--- OUTSIDE RECORDS SUMMARY | 2024-06-29 12:51 | XMS_ITS | Encounter Summary ---
Author Organization [facility] Address [address] [place] [address] Care Team Providers Care Plywood Patcher Name Role Phone Unknown, Provider Primary Care Provider Unava ilable Encounter Details Date Type Department Care Team (Late st Contact Info) Description 03/19/2013 Results Only [facility] Laboratory Services - [facility] ([facility]) [address] [place] [address] Mitzi Leon, [facility] [address] [place] [address] Social History Tobacco Use Types Packs/Day [...] Diagnosis Comments PAP TEST- RESULT ONLY Routine 03/19/2013 0:00 EDT documented in this encounter Results * PAP TEST- RESULT ONLY (03/19/2013 0:00 EDT) Pathology Report: CYTOPATHOLOGY REPORT Reports generated via electronic interface contain original data; however they are lacking the format of the original report. Caution should be taken when reading/interpreti ng unformatted reports. Name: ? TRI DIAS ? Accession #: ? [id number] : ? 1980 (Age: 33) ??F ?Collect Date: ? 03/19/2013 Location: ? [facility] ? Receive Date: ? 03/23/2013 Provider: ?MITZI LEON TEXTILE CONSERVATOR Copy to: ?DHEERAJ MARI MD ? Specimen/Source: ?Pap Test, Cervix/Endocervix, ThinPrep Imaging System with manual evaluation Last Menstrual Period: ? 03/02/13 ? SPECIMEN ADEQUACY ? Satisfactory for Evaluation - transformation zone component present GENERAL CATEGORIZATION ? Negative for Intraepithelial Lesion or Malignancy ? Document reviewed and electronically signed by: ? CHAY Torre(ASCP) ? Report Date: ??04/01/2013 10:12 End of Report [facility] 03/19/2013 03/23/2013 Mitzi Leon TEXTILE CONSERVATOR PATHOLOGY ORDERABLES [facility] [address] [place] [address] documented in this encounter Visit Diagnoses Not on filedocumented in this encounter Care Teams Plywood Patcher Relationship Specialty Start Date End Date Unknown, Provider, PCP - General 02/18/09 documented as of this encounter
--- OUTSIDE RECORDS SUMMARY | 2024-06-29 12:51 | XMS_ITS | Clinical Summary ---
Author Organization [facility] Address [facility] [place] [address] Care Team Providers Care Inventory Control Clerk Name Role Phone Carol Vo APRN Primary Care Provider Allergies Active Allergy Reactions Criticality Noted Date Comments Corticosteroids (Glucocorticoids) Other (See Comments) Low painful joints Sulfa (Sulfonamide Antibiotics) Hives Medium Sulfamethoxazole-Trimetho prim Anaphylaxis High Medications Medication Sig Dispensed Refills Start Date End Date Status multivitamin (THERAGRAN) tablet 08/11/2010 Active OM-3/E/LINOL/ALA/OL EIC/GLA/LIP (OMEGA 3-6-9 ORAL) 08/11/2010 Active CALCIUM CARBONATE/VITAMIN D2 (OYSTER SHELL CALCIUM WITH D ORAL) 08/11/2010 Active venlafaxine (EFFEXOR-XR) 150 mg Capsule, Sust. Release 24 hr 09/01/2021 Active losartan (Cozaar) 50 mg Tablet Take 1 tablet by mouth daily. Has not started as of 10/17/21 90 tablet 3 12/12/2021 Active Additional Information Patient taking differently: 100 mgOral DAILY, Has not started as of 10/17/21, Reported on 05/02/2023 metoprolol succinate XL (Toprol-XL) 50 mg ER 24 hr tabletIndications:P VC (premature ventricular contraction) Take 2 tablets by mouth every morning AND 1 tablet every evening. 90 tablet 5 05/02/2023 Active amLODIPine (Norvasc) 10 mg tablet Take 10 mg by mouth daily. Active flecainide (Tambocor) 100 mg tabletIndications:V T (ventricular tachycardia) TAKE ONE AND ONE-HALF TABLETS TWO TIMES DAILY (DOSAGE INCREASE) 135 tablet 1 06/19/2024 Active Active Problems Problem Noted Date Diagnosed Date VT (ventricular tachycardia) 12/12/2021 Assessment & Plan (03/26/2022 11:35 AM EDT): She remains asymptomatic from her ventricular tachycardia. Her work-up is in progress, with a stress cardiac MRI. She is currently on an appropriate beta- angy dose. She is scheduled for follow-up with EP following her testing. Pre-operative cardiovascular examination 022 Assessment & Plan (12/12/2021 1:27 PM EDT): She has no history of angina and no diagnosed coronary artery disease. Her stress cardiac MRI is pending. Assuming that this is unremarkable I think that she is an excellent candidate for knee surgery as planned. Any significant ischemia of course will need us to do further evaluation. Also we will have another look at her LV function. Assuming however that there is nothing unexpected on her cardiac MRI she may proceed with knee surgery. Hypertension 12/12/2021 Assessment & Plan (12/12/2021 1:31 PM EDT): Her blood pressure remains elevated. She only recently went up to the current dose of losartan. If it remains in this range I think she will need to ultimately increase to losartan 100 mg daily but she has not had a sufficient time to assess her response to the most recent increase. Female infertility of unspecified origin 011 Overview (05/25/2012): Dx replacement utility run on deactivated IMO Dx [id number] Encounters Date Type Department Care Team Description 06/18/2024 Refill Cardiology at [address] [address] Autumn Henry MD Medication Refill from Last 3 Months Immunizations Name Administration Dates Next Due Influenza Vaccine, Whole 08/07/2007,06/14/2006 Tdap (Adacel, Boostrix) 11/25/2006 Family History Relation Status Comments Other Alive Social History Tobacco Use Types Packs/Day Years Used Date Smoking Tobacco: Former Cigarettes 0.5 14 0 10/2006 - 10/2020 Smokeless Tobacco: Never Alcohol Use Standard Drinks/Week Comments Yes 0 (1 standard drink = 0.6 oz pur e alcohol) occ Sex and Gender Information Value Date Recorded Sex Assigned at Not on file Gender Identity Not on file Sexual Orientation Not on file Last Filed Vital Signs Vital Sign Reading Time Taken Comments Blood Pressure 153/95 10/16/2023 4:15 PM EST Pulse 59 10/16/2023 4:15 PM EST Temperature - - Respiratory Rate 16 12/12/2021 11:37 AM EDT Oxygen Saturation 100% 10/16/2023 4:15 PM EST Inhaled Oxygen Concentration - - Weight 91.9 kg (202 lb 9.6 oz) 10/16/2023 4:15 P M EST Height 165.1 cm (5' 5) 10/16/2023 4:15 PM EST Body Mass Index 33.71 10/16/2023 4:15 PM EST Plan of Treatment Health Maintenance Due Date Last Done Comments HIV screen 01/06/2000 Hepatitis C Screening 01/06/2000 Lipid Screening 01/06/2000 Hepatitis B vaccine (0-59 yrs) (1) 2001 HPV test 01/06/2012 PAP Smear 01/06/2012 Tetanus/Diphtheria/Pertussis Vaccines (2 - Td or Tdap) 11/25/2016 11/25/2006 Breast Cancer Share Decision Needed 2022 Breast Cancer screening 2022 Covid-19 Vaccine ( - season) 2024 Influenza (Flu) vaccine (1 o f 1 - Influenza standard series) 04/26/2024 08/07/2007, 06/14/2006 Diabetes Screening (HgbA1C or Glucose) 10/16/2026 Procedures Procedure Name Priority Date/Time Associated Diagnosis Comments COMPREHENSIVE METABOLIC PANEL Routine 10/16/2023 2:32 PM EST VT (ventricular tachycardia) Encounter for monitoring flecainide therapy from Last 3 Months or Most Recently Relevant to Health Maintenance Results * (ABNORMAL) Comprehensive metabolic panel (non-fasting) (10/16/2023 2:32 PM EST) Glucose 110 65 - 199 mg/dL [facility] Comment:Diabetes: >=200 mg/d L plus symptoms Blood Urea Nitrogen 12 8 - 18 mg/dL [facility] Creatinine 0.87 0.70 - 1.20 mg/dL [facility] Sodium 138 135 - 145 mmol/L [facility] Potassium 4.1 3.5 - 5.0 mmol/L [facility] Comment: Please note: ??Patients with WBC >100,000 may have falsely elevated Potassium levels. ??For accurate Potassium quantification in these patients send serum separator tube (gold top) for subsequent determinations. ??Contact the Clinical Chemistry Laboratory if there are any questions. Chloride 102 98 - 107 mmol/L [facility] Carbon Dioxide 27 22 - 31 mmol/L [facility] Anion Gap 9 5 - 15 mmol/L [facility] Calcium 9.8 8.5 - 10.5 mg/dL [facility] Protein, Total 6.8 6.1 - 8.0 g/dL [facility] Albumin 4.0 3.2 - 5.2 g/dL [facility] Aspartate Aminotransferase 62(H) 0 - 30 unit/L [facility] Alanine Aminotransferase 74(H) 0 - 30 unit/L [facility] Alkaline Phosphatase 130(H) 35 - 105 unit/L [facility] Bilirubin, Total 0.4 0.2 - 1.3 mg/dL [facility] Est Glomerular Filtration Rate 86 >=60 mL/min/1. 73 m?? [facility] Comment: This patient's estimated GFR [...] Agency Comment Spec In Lab Meera Austin LOOM DOFFER CHEMISTRY ORDERABLES [facility] [place] [address] from Last 3 Months or Most Recently Relevant to Health Maintenance Care Teams Inventory Control Clerk Relationship Specialty Start Date End Date Carol Vo APRN [address] [place] [address] [address] [place] [address] PCP - General Family Medicine 10/13/21
--- OUTSIDE RECORDS SUMMARY | 2024-06-29 12:51 | XMS_ITS | Encounter Summary ---
Author Organization [facility] Address [address] [place] [address] Care Team Providers Care Macaroni Press Operator Name Role Phone Unknown, Provider Primary Care Provider Unava ilable Encounter Details Date Type Department Care Team (Late st Contact Info) Description 01/24/2010 Results Only [facility] Laboratory Services - [facility] ([facility]) [address] [place] [address] Mitzi Leon, [facility] [address] [place] [address] Social History Tobacco Use Types Packs/Day Years Used Date Smoking Tobacco: Never Assessed Sex and Gender Information Value Date Recorded Sex Assigned at Not on file Gender Identity Not on file Sexual Orientation Not on file documented as of this encounter Plan of Treatment Not on file documented as of this encounter Procedures Procedure Name Priority Date/Time Associated Diagnosis Comments CYTOPATHOLOGY Routine 01/24/2010 0:00 EDT documented in this encounter Results * CYTOPATHOLOGY (01/24/2010 0:00 EDT) Pathology Report: CYTOPATHOLOGY REPORT ? Reports generated via electronic interface contain original data; ? however they are lacking the format of the original report. ? Caution should be taken when reading/interpreti ng unformatted reports. ? Name: ? TRI DIAS ? Accession #: ? [id number] ? : ? 1980 (Age: 30) ??F ?Collect Date: ? 01/24/2010 ? Location: ? [facility] ? Receive Date: ? 01/25/2010 ? Provider: ?MITZI WENDY [facility] [employer] [employer]ORATION LABOR ? Copy to: ? Specimen/Source: ?Pap Test, Cervix/Endocervix, ThinPrep Imaging System ? with manual evaluation ? Last Menstrual Period: ? 01/13/2010 ? Other: ? HPVA - HPV testing requested if ASC-US on the current ThinPrep Pap test. ? SPECIMEN ADEQUACY ? Satisfactory for Evaluation ? - transformation zone component present ? GENERAL CATEGORIZATION ? Negative for Intraepithelial Lesion or Malignancy ? Document reviewed and electronically signed by: ? Tri Raymond, [place](ASCP) ? Report Date: ??01/26/2010 13:24 ? End of Report ? [facility] 01/24/2010 01/25/2010 Mitzi Leon MASON TENDER RESTORATION LABOR PATHOLOGY ORDERABLES Performing Organization Address City/State/[facility] Co de Phone Number [facility] [address] [place] [address] documented in this encounter Visit Diagnoses Not on filedocumented in this encounter Care Teams Macaroni Press Operator Relationship Specialty Start Date End Date Unknown, Provider, PCP - General 02/18/09 documented as of this encounter
--- OUTSIDE RECORDS SUMMARY | 2024-06-29 12:51 | XMS_ITS | Encounter Summary ---
Author Organization [facility] Address [address] [place] [address] Care Team Providers Care Policy Manager Name Role Phone Unavailable Primary Care Provider Unavailabl e Encounter Details Date Type Department Care Team (Late st Contact Info) Description 02/17/2009 Orders Only [facility] Laboratory Services - [facility] ([facility]) [address] [place] [id number] Pepe Malcolm MD [address] [place] [address] Social History Tobacco Use Types Packs/Day Years Used Date Smoking Tobacco: Never Assessed Sex and Gender Information Value Date Recorded Sex Assigned at Not on file Gender Identity Not on file Sexual Orientation Not on file documented as of this encounter Plan of Treatment Not on file documented as of this encounter Procedures Procedure Name Priority Date/Time Associated Diagnosis Comments SURGICAL PATHOLOGY Routine 02/17/2009 0:00 EDT documented in this encounter Results * SURGICAL PATHOLOGY (02/17/2009 0:00 EDT) Pathology Report: SURGICAL PATHOLOGY REPORT ? Reports generated via electronic interface contain original data; ? however they are lacking the format of the original report. ? Caution should be taken when reading/interpreti ng unformatted reports. ? Name: ? LARISSA, TRI A ? Accession #: ? [id number] ? : ? 1980 (Age: 29) ??F ? Collect Date: ? 02/17/2009 ? Location: ? [facility] ? Receive Date: ? 02/17/2009 ? Provider: PEPE ZAVALETAELSON MD ? Copy to: NABILA READY MD ? Final Pathologic Diagnosis: ? Soft tissue, left lower abdominal wall, excision: ? - Endometriosis. ? Document reviewed and electronically signed by: ? Dipesh Ciampa, MD ? Report ??Date: 02/21/2009 15:15 ? By the signature above, the attending physician certifies that he/she has ? personally conducted a gross and/or microscopic examination of the described ? specimens and rendered or confirmed the above diagnosis. ? Specimen(s) Received: ? Mass left lower abd wall ? Clinical History: ? S/P , tender mass LLQ abd wall, increasing with menses ??dx ? endometrial implant ? Gross Description: ? Received in formalin labelled Larissa, Tri and mass left lower ? abdominal wall is a 2.4 x 2.0 x 1.2 cm, unoriented, irregular and focally ? ragged, pink-obrien to yellow-obrien, focally hemorrhagic soft tissue. ??The external ?? surface is entirely inked blue and the specimen is sectioned to reveal a ? white-obrien, fibrous cut surface with multiple small, cystic foci containing blood ranging from 0.1 to 0.4 cm in diameter. ??There are no lesions suggestive of a ?? neoplastic process. ??Customer Support Representative sections are submitted as (A1) and (A2). ? (Krupa Cardenas)/[facility] ? End of Report ? [facility] 02/17/2009 02/17/2009 16: 25 EDT Pepe Malcolm MD PATHOLOGY ORDERABLE S [facility] [address] [place] [address] documented in this encounter Visit Diagnoses Not on filedocumented in this encounter
--- OUTSIDE RECORDS SUMMARY | 2024-06-29 12:51 | XMS_ITS | Encounter Summary ---
Author [facility] [place] [address] Care Team Providers Care Fund Controller Name Role Phone Carol Vo APRN Primary Care Provider Encounter Details Date Type Department Care Team (Latest Contact Info) Description 10/16/2023 Travel Social History Tobacco Use Types Packs/Day Years [...] on file documented as of this encounter Visit Diagnoses Not on filedocumented in this encounter Care Teams Fund Controller Relationship Specialty Start Date End Date Carol Vo APRN [address] [place] [address] PCP - General Family Medicine 10/13/21 documented as of this encounter
--- OUTSIDE RECORDS SUMMARY | 2024-06-29 12:51 | XMS_ITS | Encounter Summary ---
Author Organization [facility] Address [address] [place] [address] Care Team Providers Care Risk Assessment Analyst Name Role Phone Unknown, Provider Primary Care Provider Unava ilable Encounter Details Date Type Department Care Team (Late st Contact Info) Description 06/13/2018 Results Only [facility] [phone] Mitzi Leon, [address] [place] [phone] Social History Tobacco Use Types Packs/Day Years [...] Diagnosis Comments PAP TEST- RESULT ONLY Routine 06/13/2018 0:00 EDT documented in this encounter Results * PAP TEST- RESULT ONLY (06/13/2018 0:00 EDT) Pathology Report: CYTOPATHOLOGY REPORT Reports generated via electronic interface contain original data; however they are lacking the format of the original report. Caution should be taken when reading/interpreti ng unformatted reports. Name: ? TRI DIAS ? Accession #: ? [id number] ? : ? 1980 (Age: 38) ??F ?Collect Date: ? 06/13/2018 ? Location: ? [facility] ? Receive Date: ? 06/16/2018 ? Provider: MITZI LEON BILLER Copy to: ? Final Report SPECIMEN ADEQUACY ? Satisfactory for Evaluation - transformation zone component present - scant squamous epithelial component secondary to excessive inflammation GENERAL CATEGORIZATION ? Negative for Intraepithelial Lesion or Malignancy INTERPRETATION ? Shift in vidal present suggestive of bacterial vaginosis. Last Menstrual Period: 06/03/2018 Specimen/Source: ??Pap Test, Cervix, ThinPrep Imaging System with manual evaluation Document reviewed and electronically signed by: ? Alvaro Padilla, CT(ASCP) ? Report ??Date: 06/24/2018 16:05 HPV with Pap Test ? Date Ordered: ? 06/24/2018 ? Status: ?? Signed Out ?Date Complete: ? 06/26/2018 ? By: ??System Interface ? Date Reported: ? 06/26/2018 ? Interpretation RESULT: Negative for HPV. No E6 or E7 mRNA is detected from HPV types 16,18,31,33,35, 39,45,51,52,56,58, 59,66, and 68 by service girl mediated amplification. Comments Document reviewed and electronically signed by: ? System Interface ? Report date: 06/26/2018 By the signature above, the attending physician certifies that he/she has personally conducted a gross and/or microscopic examination of the described specimens and rendered or confirmed the above diagnosis. End of Report [facility] 06/13/2018 06/16/2018 Mitzi Leon BILLER PATHOLOGY ORDERABLES [facility] [address] [place] [address] documented in this encounter Visit Diagnoses Not on filedocumented in this encounter Care Teams Risk Assessment Analyst Relationship Specialty Start Date End Date Unknown, Provider, PCP - General 02/18/09 documented as of this encounter
--- OUTSIDE RECORDS SUMMARY | 2024-06-29 12:51 | XMS_ITS | Encounter Summary ---
Author Organization [facility] Address [address] [place] [address] Care Team Providers Care Desktop Technician Name Role Phone Unknown, Provider Primary Care Provider Unava ilable Encounter Details Date Type Department Care Team (Late st Contact Info) Description 01/15/2008 Results Only [facility] conversion [address] [place] [address] Mitzi Leon, [facility] [address] [place] [address] Social History Tobacco Use Types Packs/Day Years Used Date Smoking Tobacco: Never Assessed Sex and Gender Information Value Date Recorded Sex Assigned at Not on file Gender Identity Not on file Sexual Orientation Not on file documented as of this encounter Plan of Treatment Not on file documented as of this encounter Procedures Procedure Name Priority Date/Time Associated Diagnosis Comments CYTOPATHOLOGY Routine 01/15/2008 0:00 EDT documented in this encounter Results * CYTOPATHOLOGY (01/15/2008 0:00 EDT) Pathology Report: CYTOPATHOLOGY REPORT Reports generated via electronic interface contain original data; however they are lacking the format of the original report. Caution should be taken when reading/interpreti ng unformatted reports. Name: ? TRI DIAS ? Accession #: ? [id number] : ? 1980 (Age: 28) ??F ?Collect Date: ? 01/15/2008 Location: ? [facility] ? Receive Date: ? 01/16/2008 Provider: ?MITZI LEON ABRASIVE WHEEL MOLDER Copy to: ? Specimen/Source: ?ThinPrep Pap Test, Cervix/Endocervix, processed on [employer] ThinPrep Imaging System, with manual evaluation Last Menstrual Period: ? 12/29/07 Hormonal/Contracep tive Status: ? Yes: Progestin only pill Other: ? HPVA - HPV testing requested if ASC-US on the current ThinPrep Pap test. ? SPECIMEN ADEQUACY ? Satisfactory for Evaluation - transformation zone component present GENERAL CATEGORIZATION ? Negative for Intraepithelial Lesion or Malignancy INTERPRETATION ? Reactive cellular changes associated with inflammation present (includes repair). ? Document reviewed and electronically signed by: ? ROSA ULRICH MD ? Report Date: ??01/24/2008 10:51 End of Report [facility] 01/15/2008 01/16/2008 Mitzi Leon ABRASIVE WHEEL MOLDER PATHOLOGY ORDERABLES Performing Organization Address City/State/[facility] Co de Phone Number [facility] MCKIN[facility] [address] [place] [address] documented in this encounter Visit Diagnoses Not on filedocumented in this encounter Care Teams Desktop Technician Relationship Specialty Start Date End Date Unknown, Provider, PCP - General 02/18/09 documented as of this encounter
--- OUTSIDE RECORDS SUMMARY | 2024-06-29 12:51 | XMS_ITS | Encounter Summary ---
Author Organization [facility] Address [address] [place] [address] Care Team Providers Care Director Instructional Material Name Role Phone Unknown, Provider Primary Care Provider Unava ilable Encounter Details Date Type Department Care Team (Late st Contact Info) Description 06/17/2024 Lab Requisition [facility] Pathology & Laboratory Medicine - [facility] [address] [place] [address] Isadora Hernandez MD [address] [place] [address],[address] [place] [address] Encounter for other general examination Social History Tobacco Use Types Packs/Day Years [...] :15 EDT Encounter for other general examination documented in this encounter Results * SURGICAL PATHOLOGY (06/17/2024 11:15 EDT) Note to Patient The following pathology results have been interpreted by your pathologist and may be available to you before your health provider has had the opportunity to review them. Please allow time for your provider to receive these results and explore management options, if applicable. 06/22/2024 8:54 EDT [facility] Final Diagnosis A. ENDOMETRIUM, BIOPSY: - Proliferative endometrium. 06/22/2024 8:54 EDT [facility] Attestation There was significant resident/fellow involvement in the diagnostic evaluation of this case. By the signature below, the attending physician certifies that they have personally conducted a gross and/or microscopic examination of the described specimens and rendered or confirmed the above diagnosis. 06/22/2024 8:54 EDT [facility] at 0854 Clinical History Abnormal uterine bleeding 06/22/2024 8:54 EDT [facility] Gross Description A. Received in formalin labelled with proper patient identification (initials K, S) and endometrium is an aggregate of soft obrien and brown tissue and translucent white mucus (1.7 x 1.3 x 0.7 cm). Entirely submitted in A1-A2. Neisha Rodriguez 06/18/2024 11:16 06/22/2024 8:54 EDT [facility] Resident/Adam w: Ana María Hayes MD PhD 06/22/2024 8:54 EDT [facility] Performing Lab [facility] 06/22/2024 8:54 EDT [facility] Scanned Images 06/22/2024 8:54 EDT [facility] Tissue ENDOMETRIAL STRUCTURE / Unknown 06/17/2024 11:15 EDT 06/17/2024 18:06 EDT Isadora Hernandez MD PATHOLOGY ORDERABLES [facility] [address] [place], [place] [id number] documented in this encounter Visit Diagnoses Diagnosis Encounter for other general examination documented in this encounter Care Teams Director Instructional Material Relationship Specialty Start Date End Date Unknown, Provider, PCP - General 02/18/09 documented as of this encounter
--- OUTSIDE RECORDS SUMMARY | 2024-06-29 12:51 | XMS_ITS | Referral Summary ---
Author Organization [facility] Address [address] [place] [address] Care Team Providers Care Account Adjuster Name Role Phone Unknown, Provider Primary Care Provider Unava ilable Encounters Date Type Department Care Team Description 06/17/2024 Lab Requisition [facility] Pathology & Laboratory Medicine - [facility] [address] [place] [address] Isadora Hernandez MD Encounter for other general examination from Last 3 Months Social History Tobacco Use Types Packs/Day Years Used Date Smoking Tobacco: Never Assessed Sex and Gender Information Value Date Recorded Sex Assigned at Not on file Gender Identity Not on file Sexual Orientation Not on file Plan of Treatment Not on file Procedures Procedure Name Priority Date/Time Associated Diagnosis [...] explore management options, if applicable. 06/22/2024 8:54 T [facility] Final Diagnosis A. ENDOMETRIUM, BIOPSY: - Proliferative endometrium. 06/22/2024 8:54 T [facility] Attestation There was significant resident/fellow involvement in the diagnostic evaluation of this case. By the signature below, the attending physician certifies that they have personally conducted a gross and/or microscopic examination of the described specimens and rendered or confirmed the above diagnosis. 06/22/2024 8:54 [facility] at 0854 Clinical History Abnormal uterine bleeding 06/22/2024 8:54 EDT [facility] Gross Description A. Received in formalin labelled with proper patient identification (initials K, S) and endometrium is an aggregate of soft obrien and brown tissue and translucent white mucus (1.7 x 1.3 x 0.7 cm). Entirely submitted in A1-A2. Neisha Rodriguez 06/18/2024 11:16 06/22/2024 8:54 EDT [facility] Resident/Adam w: Ana María Hayes MD PhD 06/22/2024 8:54 EDT [facility] Performing Lab [facility] 06/22/2024 8:54 EDT [facility] Scanned Images 06/22/2024 8:54 EDT [facility] Tissue ENDOMETRIAL STRUCTURE / Unknown 06/17/2024 11:15 EDT 06/17/2024 18:06 EDT Isadora Hernandez MD PATHOLOGY ORDERABLES [facility] [address] [place] [address] from Last 3 Months Care Teams Account Adjuster Relationship Specialty Start Date End Date Unknown, Provider, PCP - General 02/18/09
--- OUTSIDE RECORDS SUMMARY | 2024-06-29 12:51 | XMS_ITS | Encounter Summary ---
Author Organization [facility] [place] [address] Care Team Providers Care Plate Maker Name Role Phone Carol Vo APRN Primary Care Provider Reason for Visit * Reason Comments Medication Refill Encounter Details Date Type Department Care Team (Late st Contact Info) Description 06/18/2024 Refill Cardiology at [address] [phone] Autumn Henry MD [facility] [place] [address] Medication Refill Social History Tobacco Use Types Packs/Day Years [...] documented as of this encounter Visit Diagnoses Diagnosis [place] (ventricular tachycardia) Paroxysmal ventricular tachycardia documented in this encounter Care Teams Plate Maker Relationship Specialty Start Date End Date Carol Vo APRN [address] [place] [address] PCP - General Family Medicine 10/13/21 documented as of this encounter
--- OUTSIDE RECORDS SUMMARY | 2024-06-29 12:52 | XMS_ITS | Encounter Summary ---
Author [facility] [place] [address] Care Team Providers Care Animal Killer Name Role Phone Carol Vo APRN Primary Care Provider [phone] Encounter Details Date Type Department Care Team (Latest Contact Info) Description 06/14/2023 Travel Social History Tobacco Use Types Packs/Day [...] on filedocumented in this encounter Care Teams Animal Killer Relationship Specialty Start Date End Date Carol Vo APRN [address] [place] [address] PCP - General Family Medicine 10/13/21 documented as of this encounter
--- OUTSIDE RECORDS SUMMARY | 2024-06-29 12:52 | XMS_ITS | Encounter Summary ---
Author Organization [facility] [place] [address] Care Team Providers Care Category Development Manager Name Role Phone Carol Vo APRN Primary Care Provider Encounter Details Date Type Department Care Team (Late st Contact Info) Description 05/29/2023 Telephone Cardiology at [address] [place] [phone] Autumn Henry MD [facility] [place] [address] Social History Tobacco Use Types Packs/Day Years [...] on file documented as of this encounter Miscellaneous Notes * Telephone Encounter - Autumn Henry MD - 05/29/2023 5:10 PM EDT Called patient to discuss results of her Zio which demonstrated thousands of episodes of NSVT. Prior cardiac MRI was normal and in the absence of significant cardiac history, presume this represents normal heart [place]. We have discussed AAD (flecainide) vs ablation in the past for suppression, and she has previously declined. Called to discuss these options again. No answer at only number listed. LVM to call back. documented in this encounter Plan of Treatment Not on file documented as of this encounter Visit Diagnoses Not on filedocumented in this encounter Care Teams Category Development Manager Relationship Specialty Start Date End Date Devansachinchristel CarolCLIFFORD ly [address] [place] [address] [address] [facility] [address] [place] [address] PCP - General Family Medicine 10/13/21 documented as of this encounter
--- OUTSIDE RECORDS SUMMARY | 2024-06-29 12:52 | XMS_ITS | Encounter Summary ---
Author Organization [facility] [place] [address] Care Team Providers Care Galvanizer Zinc Name Role Phone Carol Vo APRN Primary Care Provider [phone] Reason for Visit * Diagnostic Test (Routine) - Closed Specialty Diagnoses / Procedures Referred By Richard thomas Referred To Contact Radiology Diagnoses VT (ventricular tachycardia) Procedures MRI Cardiac Morphology Function wwo Contrast MRI Cardiac Morphology Function and Stress wwo Contrast MRI Cardiac Morphology Function wwo Contrast MRI Cardiac Morphology Function and Stress wwo Contrast Autumn Henry MD [facility] [place] [address] [place] [address] Referral ID Status Reason Start Date Expiration Date V isits Requested Visits Authorized [id number] Closed Specialty Service Requested 12/25/2021 03/25/2022 1 2 Encounter Details Date Type Department Care Team (Latest Contact Info) Description 12/25/2021 7:59 AM EDT Hospital [place] [address] Autumn Henry MD [facility] [place] [address] [place] (ventricular tachycardia) Discharge Disposition: Home Social History Tobacco Use Types Packs/Day Years [...] on file documented as of this encounter Medications at Time of Discharge Medication Sig Dispensed Refills Start Date End Date losartan (Cozaar) 50 mg Tablet Take 1 tablet by mouth daily. Has not started as of 10/17/21 90 tablet 3 12/12/2021 venlafaxine (EFFEXOR-XR) 150 mg Capsule, Sust. Release 24 hr 09/01/2021 multivitamin (THERAGRAN) tablet 08/11/2010 OM-3/E/LINOL/ALA/OLEIC/ GLA/LIP (OMEGA 3-6-9 ORAL) 08/11/2010 CALCIUM CARBONATE/VITAMIN D2 (OYSTER SHELL CALCIUM WITH D ORAL) 08/11/2010 metoprolol succinate XL (Toprol-XL) 50 mg Tablet Sustained Release 24 hr Take 1 tablet by mouth 2 times daily. 90 tablet 5 10/17/2021 05/02/2023 documented as of this encounter Plan of Treatment Not on file documented as of this encounter Procedures Procedure Name Priority Date/Time Associated Diagnosis Comments MRI CARDIAC MORPHOLOGY FUNCTION WWO CONTRAST Routine 12/25/2021 11:04 AM EDT VT (ventricular tachycardia) documented in this encounter Results * MRI Cardiac Morphology Function wwo Contrast (12/25/2021 11:04 AM EDT) Anatomical Region Laterality Modality Magnetic Resonan ce Impressions 12/25/2021 11:34 AM EDT 1. ??Normal left ventricular size and function 2. ??Normal right ventricular size and function 3. ??No delayed enhancement to suggest previous infarct, myocarditis or infiltrative disease of the left or right ventricles 4. ??Unable to perform cardiac stress test as patient drank coffee prior to arrival. Thank you for letting us participate in the care of this patient. ??If you are a health care provider and have any questions regarding this report, please contact the number below. ??For patients who have questions please contact the health healthcare technician that requested your imaging first. ? Narrative 12/25/2021 11:34 AM EDT EXAMINATION: MRI CARDIAC MORPHOLOGY FUNCTION WWO CONTRAST CLINICAL HISTORY: Chest pain/anginal equiv, 10yr CHD risk < 10%, not EST candidate Chest pain/anginal equiv, 10yr CHD risk < 10%, not EST candidate COMPARISON: None TECHNIQUE: Cardiac MRI with and without IV contrast IV CONTRAST: 40 mL Dotarem Quantification: ?? LEFT VENTRICLE: End-diastolic volume 185 mL End-systolic volume 81 mL Stroke volume 104 mL Ejection fraction 56% End-diastolic volume index 86 mL/sq m 3 chamber end-diastolic width 5.0 cm 3 chamber septal thickness 1.16 cm Inferolateral wall thickness 0.96 cm RIGHT VENTRICLE: End-diastolic volume 172 mL End-systolic volume 76 mL Stroke volume 96 mL Ejection fraction 56% End-diastolic volume index 80 mL/sq m Chambers: At rest, the left ventricle is normal in size and function. Quantitated left ventricular ejection fraction is 56%. There are no regional wall motion abnormalities present. Wall thickness is normal. The right ventricle is normal in size and function. Quantitated right ventricular ejection fraction is 56%. There are no right ventricular regional wall motion abnormalities present. The left atrium is normal in size. The right atrium is normal in size. Interventricular and interatrial septum are intact. The aortic root is normal in size. There is a trivial pericardial effusion. Valves: Mitral valve: Normal in structure and function with trace regurgitation and no stenosis present. Aortic valve: Trileaflet. Normal in structure and function with no regurgitation. There is no aortic valve stenosis present. Tricuspid valve: Normal in structure and function with mild tricuspid regurgitation and no stenosis present. Pulmonic valve: Normal in structure and function with trace insufficiency and no stenosis present. Resting perfusion: Resting perfusion was performed in both long and short axis planes. There were no resting perfusion defects to suggest previous infarct or resting myocardial ischemia. TI Environmental Aide: TI Environmental Aide demonstrates normal nulling patterns. Delayed enhancement: Delayed enhancement was performed in both long and short axis planes. There was no delayed enhancement to suggest previous infarct, myocarditis, or infiltrative disease of the left or right ventricles. No stress test was performed. Patient drank coffee before stress. Extracardiac: Extracardiac imaging performed for the purposes of cardiac planning only. The aorta is normal in course and caliber. There are no signficant pleural effusions present. Procedure Note Marvel Owesn MD - 12/25/2021 EXAMINATION: MRI CARDIAC MORPHOLOGY FUNCTION WWO CONTRAST CLINICAL HISTORY: Chest pain/anginal equiv, 10yr CHD risk < 10%, not EST candidate Chest pain/anginal equiv, 10yr CHD risk < 10%, not EST candidate COMPARISON: None TECHNIQUE: Cardiac MRI with and without IV contrast IV CONTRAST: 40 mL Dotarem Quantification: LEFT VENTRICLE: End-diastolic volume 185 mL End-systolic volume 81 mL Stroke volume 104 mL Ejection fraction 56% End-diastolic volume index 86 mL/sq m 3 chamber end-diastolic width 5.0 cm 3 chamber septal thickness 1.16 cm Inferolateral wall thickness 0.96 cm RIGHT VENTRICLE: End-diastolic volume 172 mL End-systolic volume 76 mL Stroke volume 96 mL Ejection fraction 56% End-diastolic volume index 80 mL/sq m Chambers: At rest, the left ventricle is normal in size and function. Quantitatedleft ventricular ejection fraction is 56%. There are no regional wall motion abnormalities present. Wall thickness is normal. The right ventricle isnormal in size and function. Quantitated right ventricular ejection fraction is56%. There are no right ventricular regional wall motion abnormalities present.The left atrium is normal in size. The right atrium is normal in size. Interventricular and interatrial septum are intact. The aortic root isnormal in size. There is a trivial pericardial effusion. Valves: Mitral valve: Normal in structure and function with trace regurgitationand no stenosis present. Aortic valve: Trileaflet. Normal in structure and function with no regurgitation. There is no aortic valve stenosis present. Tricuspid valve: Normal in structure and function with mild tricuspid regurgitation and no stenosis present. Pulmonic valve: Normal in structure and function with trace insufficiencyand no stenosis present. Resting perfusion: Resting perfusion was performed in both long and short axis planes. Therewere no resting perfusion defects to suggest previous infarct or restingmyocardial ischemia. TI Environmental Aide: TI Environmental Aide demonstrates normal nulling patterns. Delayed enhancement: Delayed enhancement was performed in both long and short axis planes.There was no delayed enhancement to suggest previous infarct, myocarditis, orinfiltrative disease of the left or right ventricles. No stress test was performed. Patient drank coffee before stress. Extracardiac: Extracardiac imaging performed for the purposes of cardiac planning only.The aorta is normal in course and caliber. There are no signficant pleuraleffusions present. IMPRESSION 1. Normal left ventricular size and function 2. Normal right ventricular size and function 3. No delayed enhancement to suggest previous infarct, myocarditis or infiltrative disease of the left or right ventricles 4. Unable to perform cardiac stress test as patient drank coffee priorto arrival. Thank you for letting us participate in the care of this patient. If youare a health care provider and have any questions regarding this report,please contact the number below. For patients who have questions please contactthe health healthcare technician that requested your imaging first. Autumn Henry MD IMG MRI ORDERABLES documented in this encounter Visit Diagnoses Diagnosis VT (ventricular tachycardia) Paroxysmal ventricular tachycardia Pre-operative cardiovascular examination VT (ventricular tachycardia) Paroxysmal ventricular tachycardia documented in this encounter Care Teams Galvanizer Zinc Relationship Specialty Start Date End Date Carol Vo APRN [address] [place] [address] PCP - General Family Medicine 10/13/21 documented as of this encounter
--- OUTSIDE RECORDS SUMMARY | 2024-06-29 12:52 | XMS_ITS | Encounter Summary ---
Author Organization [facility] [place] [address] Care Team Providers Care Rehab Manager Name Role Phone Carol Vo APRN Primary Care Provider Encounter Details Date Type Department Care Team (Latest Contact Info) Description 06/14/2023 4:30 PM EDT - 06/14/2023 11:59 PM EDT Hospital Encounter Non-Invasive [place] [phone] [place] (ventricular tachycardia) Discharge Disposition: Home Social [...] Sig Dispensed Refills Start Date End Date metoprolol succinate XL (Toprol-XL) 50 mg ER 24 hr tabletIndications:PVC (premature ventricular contraction) Take 2 tablets by mouth every morning AND 1 tablet every evening. 90 tablet 5 05/02/2023 losartan (Cozaar) 50 mg Tablet Take 1 tablet by mouth daily. Has not started as of 10/17/21 90 tablet 3 12/12/2021 venlafaxine (EFFEXOR-XR) 150 mg Capsule, Sust. Release 24 hr 09/01/2021 multivitamin (THERAGRAN) tablet 08/11/2010 OM-3/E/LINOL/ALA/OLEIC/G LA/LIP (OMEGA 3-6-9 ORAL) 08/11/2010 CALCIUM CARBONATE/VITAMIN D2 (OYSTER SHELL CALCIUM WITH D ORAL) 08/11/2010 flecainide (Tambocor) 100 mg tablet Take 1 tablet by mouth 2 times daily. 60 tablet 3 06/03/2023 06/24/2023 documented as of this encounter Plan of Treatment Not on file documented as of this encounter Procedures Procedure Name Priority Date/Time Associated Diagnosis Comments EKG 12-LEAD Routine 06/14/2023 4:45 PM EDT VT (ventricular tachycardia) documented in this encounter Results * EKG 12 Lead (06/14/2023 4:45 PM EDT) Ventricular rate 68 BPM MUSE SYSTEM Atrial Rate 68 BPM MUSE SYSTEM P-R Interval 146 ms MUSE SYSTEM QRS Duration 82 ms MUSE SYSTEM Q-T Interval 408 ms MUSE SYSTEM QTC Calculated (Bezet) 433 ms MUSE SYSTEM Calculated P [place] 66 degrees MUSE SYSTEM Calculated R [place] 44 degrees MUSE SYSTEM Calculated T [place] 66 degrees MUSE SYSTEM INTERPRETATION Normal sinus rhythm Right atrial enlargement Borderline ECG When compared with ECG of 02-MAY-2023 14:26, No significant change was found Confirmed by MD OMARI, RAYMUNDO ([id number]) on 06/16/2023 12:50:55 PM MUSE SYSTEM 06/14/2023 4:45 PM EDT 06/16/2023 12:50 PM EDT Autumn Henry MD ECG ORDERABLES MUSE SYSTEM documented in this encounter Visit Diagnoses Diagnosis VT (ventricular tachycardia) Paroxysmal ventricular tachycardia documented in this encounter Care Teams Rehab Manager Relationship Specialty Start Date End Date Carol VoCLIFFORD [address] [place] [address] PCP - General Family Medicine 10/13/21 documented as of this encounter
--- OUTSIDE RECORDS SUMMARY | 2024-06-29 12:52 | XMS_ITS | Encounter Summary ---
[facility] [place] [address] Care Team Providers Care Cephalometric Analyst Name Role Phone Carol Vo APRN Primary Care Provider [phone] Reason for Visit * Diagnostic Test (Routine) - Closed Specialty Diagnoses / Procedures Referred By Richard thomas Referred To Contact Radiology Diagnoses VT (ventricular tachycardia) Procedures MRI Cardiac Morphology Function wwo Contrast MRI Cardiac Morphology Function and Stress wwo Contrast MRI Cardiac Morphology Function wwo Contrast MRI Cardiac Morphology Function and Stress wwo Contrast Autumn Henry MD [facility] [place] [address] [place] [address] Referral ID Status Reason Start Date Expiration Date V isits Requested Visits Authorized [id number] Closed Specialty Service Requested 12/25/2021 03/25/2022 1 2 Encounter Details Date Type Department Care Team (Latest Contact Info) Description 12/25/2021 8:00 AM EDT - 12/25/2021 11:59 PM EDT [place] [phone] Autumn Henry MD [facility] [address] [place] [address] Pre-operative cardiovascular examination; VT (ventricular tachycardia) Discharge Disposition: Home Social [...] 12/25/2021 11:04 AM EDT VT (ventricular tachycardia) EKG 12-LEAD Routine 12/25/2021 9:06 AM EDT Pre-operative cardiovascular examination VT (ventricular tachycardia) documented in this encounter [...] who have questions please contact the health child care cook that requested your imaging first. ? Narrative [...] previous infarct or resting myocardial ischemia. TI Treasury Management Sales Consultant: TI Treasury Management Sales Consultant demonstrates normal nulling patterns. Delayed enhancement: Delayed [...] signficant pleural effusions present. Procedure Note Marvel Owens MD - 12/25/2021 EXAMINATION: MRI CARDIAC MORPHOLOGY [...] suggest previous infarct or restingmyocardial ischemia. TI Treasury Management Sales Consultant: TI Treasury Management Sales Consultant demonstrates normal nulling patterns. Delayed enhancement: Delayed [...] patients who have questions please contactthe health child care cook that requested your imaging first. Autumn Henry MD IMG MRI ORDERABLES * EKG 12 Lead (12/25/2021 9:06 AM EDT) Ventricular rate 57 BPM MUSE SYSTEM Atrial Rate 57 BPM MUSE SYSTEM P-R Interval 144 ms MUSE SYSTEM QRS Duration 80 ms MUSE SYSTEM Q-T Interval 442 ms MUSE SYSTEM QTC Calculated (Bezet) 430 ms MUSE SYSTEM Calculated P [place] 35 degrees MUSE SYSTEM Calculated R [place] 15 degrees MUSE SYSTEM Calculated T [place] 27 degrees MUSE SYSTEM INTERPRETATION Sinus bradycardia Otherwise normal ECG When compared with ECG of 17-OCT-2021 11:58, No significant change was found Confirmed by MD OMARI, RAYMUNDO ([id number]) on 12/25/2021 3:09:32 PM MUSE SYSTEM 12/25/2021 9:06 AM EDT 12/25/2021 3:09 PM EDT Marvel Owens MD ECG ORDERABLES WHITTIER SYSTEM documented in this encounter Visit Diagnoses Diagnosis VT (ventricular tachycardia) Paroxysmal ventricular tachycardia Pre-operative cardiovascular examination VT (ventricular tachycardia) Paroxysmal ventricular tachycardia documented in this encounter Administered Medications Inactive Administered Medications - up to 3 most recent administrations Medication Order MAR Action Action Date Dose Rate Site gadoterate meglumine (Dotarem) (0.5 mMol/mL) injection solution 0-100 mL 0-100 mL, Intravenous, ONCE PRN, 1 dose, Starting on Sat12/25/21 at 1053, Until Sat12/25/21 at 1023, Per Protocol, Radiology Contrast, Routine Given 12/25/2021 10:23 AM EDT 40 mLs documented in this encounter Care Teams Cephalometric Analyst Relationship Specialty Start Date End Date Carol Vo, TERMINOLOGIST [address] [place] [address] PCP - General Family Medicine 10/13/21 documented as of this encounter
--- OUTSIDE RECORDS SUMMARY | 2024-06-29 12:52 | XMS_ITS | Encounter Summary ---
[place] [address] Care Team Providers Care Rouge Mixer Name Role Phone Carol Vo APRN Primary Care Provider Encounter Details Date Type Department Care Team (Late st Contact Info) Description 05/31/2023 Telephone Cardiology at [address] [phone] Elena Rios RN Social History Tobacco Use Types Packs/Day Years [...] Telephone Encounter - Autumn Henry MD - 06/03/2023 9:30 AM EDT Connected with patient by phone to review Zio results. She reports having episodes of near-syncope when her heart is racing. She feels like she can't get enough oxygen in. Sometimes it's every day and sometimes she'll go days without these events. Has not had bucky syncope. Doesn't get much warning -- she just notices she's really light headed and she can feel her heart racing. Fatigue and stress makes things worse. When she is trying to get to sleep, she can't sleep if her heart is going nuts. Some days it wipes her out. Sometimes the symptoms prevent her from exercising. She is scared to exercise. She has been avoiding exercise because of these symptoms. We reviewed management options with a focus on AAD (flecainide) vs EPS/RFA, and she would prefer anAAD management strategy next. We reviewed flecainide. She weighed herself this morning and is about 200#. Will start with 100 mg BID with room for up-titration as needed. She will have ECG done at next week after which we willdiscuss next steps depending on response and ECG. * Telephone Encounter - Elena Rios RN - 05/31/2023 12:08 PM EDT Pt left vm returning call to Dr. Henry from Sat. Message sent to Dr. Henry. documented in this encounter Plan of Treatment Not on file documented as of this encounter Results * EKG 12 Lead (06/14/2023 4:45 PM EDT) Pathologist [facility] [place] Ventricular rate 68 BPM MUSE SYSTEM Atrial Rate 68 BPM MUSE SYSTEM P-R Interval 146 ms MUSE SYSTEM QRS Duration 82 ms MUSE SYSTEM Q-T Interval 408 ms MUSE SYSTEM QTC Calculated (Bezet) 433 ms MUSE SYSTEM Calculated P [place] 66 degrees MUSE SYSTEM Calculated R [place] 44 degrees MUSE SYSTEM Calculated T [place] 66 degrees MUSE SYSTEM INTERPRETATION Normal sinus [...] tachycardia documented in this encounter Care Teams Rouge Mixer Relationship Specialty Start Date End Date Gilda CLIFFORD [place] [address] [place] [address] [address] [place] [address] PCP - General Family Medicine 10/13/21 documented as of this encounter
--- OUTSIDE RECORDS SUMMARY | 2024-06-29 12:52 | XMS_ITS | Encounter Summary ---
Author Organization [facility] [place] [address] Care Team Providers Care Education Analyst Name Role Phone Carol Vo CLIFFORD Primary Care Provider Encounter Details Date Type Department Care Team (Latest Contact Info) Description 10/16/2023 1:45 PM EST - 10/16/2023 11:59 PM EST Hospital Encounter [place] [phone] Meera Austin [employer] [facility] [place] [address] [place] (ventricular tachycardia); Encounter for monitoring flecainide therapy Discharge Disposition: Home Social History Tobacco Use [...] Sig Dispensed Refills Start Date End Date amLODIPine (Norvasc) 10 mg tablet Take 10 mg by mouth daily. metoprolol succinate XL (Toprol-XL) 50 mg ER [...] 08/11/2010 flecainide (Tambocor) 100 mg tablet Take 1.5 tablets by mouth 2 times daily. Note dosage increase on 06/18/23 to 150 mg twice daily. 270 tablet 3 06/24/2023 06/19/2024 documented as of this encounter Plan of Treatment Not on file documented as of this encounter Procedures Procedure Name Priority Date/Time Associated Diagnosis Comments STRESS TEST, EXERCISE (TREADMILL) Routine 10/16/2023 2:23 PM EST VT (ventricular tachycardia) Encounter for monitoring flecainide therapy documented in this encounter Results * Stress Test, Exercise (Treadmill) (10/16/2023 2:23 PM EST) Anatomical Region Laterality Modality Other Meera Austin APRN CARDIAC SERVICES ORD ERABLES documented in this encounter Visit Diagnoses Diagnosis VT (ventricular tachycardia) Paroxysmal ventricular tachycardia Encounter for monitoring flecainide therapy Encounter for therapeutic drug monitoring documented in this encounter Care Teams Education Analyst Relationship Specialty Start Date End Date Carol Vo APRN [address] [place] [address] PCP - General Family Medicine 10/13/21 documented as of this encounter
--- OUTSIDE RECORDS SUMMARY | 2024-06-29 12:52 | XMS_ITS | Encounter Summary ---
Author Organization [facility] [place] [address] Care Team Providers Care Emt/Dispatcher Name Role Phone Carol Vo APRN Primary Care Provider Encounter Details Date Type Department Care Team (Late st Contact Info) Description 03/13/2006 Orders Only Obstetrics [place] [address] Tc Currie MD [facility] [address] [place] [address] Social History Tobacco Use Types Packs/Day Years Used Date Smoking Tobacco: Never Assessed Sex and Gender Information Value Date Recorded Sex Assigned at Not on file Gender Identity Not on file Sexual Orientation Not on file documented as of this encounter Plan of Treatment Not on file documented as of this encounter Procedures Procedure Name Priority Date/Time Associated Diagnosis Comments MOLECULAR GENETICS REPORT Routine 03/13/2006 4:01 PM EDT documented in this encounter Results * Molecular Genetics Report (03/13/2006 4:01 PM EDT) Molecular Report [id number] ? Location: The signing pathologist has (i) examined the relevant preparation(s) for the specimen(s) and (ii) rendered or confirmed the diagnosis(es). . ? Pathology Molecular Genetics Report Results ? Cystic Fibrosis Mutation Analysis INDICATION FOR STUDY: ?? Carrier testing; no family history. Ethnicity: ?? ANALYSIS: ?? Examination of DNA extracted from peripheral blood leukocytes for 41 mutations in the Cystic Fibrosis transmembrane conductance regulator (CFTR) gene. 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 This interpretation is based on the clinical information provided and the current understanding of this disease. While DNA testing is very accurate, rare diagnostic errors due to various pre- and post-analytical variables do occur. Comments: ??Genetic counseling is recommended to discuss the potential clinical and/ or reproductive implications of this test result. Other family members and when applicable, this individual's partner may also want to pursue testing. ??Ethnic Group ? --1*-- ??Ashkenazi Holiness ?95% ? 90% ?67% ?? Sammarinese ? 76% ?? Sammarinese ?61% * 1= Detection Rate Methods: ??Genomic DNA was extracted from the submitted peripheral blood specimen using the Qiagen EZ1 BioRobot. The CFTR gene was tested for the presence of the following mutations/polymorp hisms using the CFTR InPlex assay ([facility], [place], [place]):1717-1G>A, 1898+1G>A, 2184delA, 2789+5G>A, 3120+1G>A, 3659delC, 3849+10kbC>T, 621+1G>T, 711+1G>T, A455E, G542X, G551D, G85E, A5092F, W1070Q, R117H, R334W, R347P, R553X, R560T, K3474X, delta F508, fiezjK780, 1078delT, 2183delAA>G, 3849+4A>G, 3876delA, 3905insT,394delTT, D9044R, Q3834M, E60X, Q493X, R347H,S549N, S549RA>C, S549RT>G, V520F, O9273YY>A, H5878LM>G, and Y122X. Reflex testing: I148T, F508C, IVS8-5T, IVS8-7T, IVS8-9T. This test was developed and its performance determined by the Molecular Pathology Laboratory at the [facility]. It has not been cleared or approved by the U.S. Food and Drug Administration. This test is used for clinical purposes and should not be considered as investigational or for research purposes. The Molecular Pathology Laboratory is certified by the Clinical Laboratory Improvement Act of 1988 and as such is allowed to perform high complexity clinical testing. . Results References: 1. ACOG/ACMG. Preconception and carrier screening for cystic fibrosis. 2001, pp.1-31. 2. Blanca MENDIOLA et al., Genetics in Medicine 2002;4:379-391. Reviewed by: ??Lizandro Hill, PhD ? Director, Molecular Pathology _ Verified date: ??03/25/06 ??HAB Verified by: ?Lizandro Hill, PhD ? (Electronic Signature) GINGER DISLA 03/13/2006 4:01 PM EDT E Pam Currie MD PATHOLOGY/CYTOLOG Y ORDERABLES GINGER DISLA documented in this encounter Visit Diagnoses Not on filedocumented in this encounter Care Teams Emt/Dispatcher Relationship Specialty Start Date End Date Carol Vo CLIFFORD [address] [place] [address] [address] [place] [address] PCP - General Family Medicine 10/13/21 documented as of this encounter
--- OUTSIDE RECORDS SUMMARY | 2024-06-29 12:52 | XMS_ITS | Encounter Summary ---
Author Organization [facility] [place] [address] Care Team Providers Care International Specialist Name Role Phone Carol Vo APRN Primary Care Provider Encounter Details Date Type Department Care Team (Late st Contact Info) Description 12/27/2021 Telephone Cardiology at [address] [place] [address] Autumn Henry MD [facility] [place] [address] Social History Tobacco Use Types Packs/Day Years [...] encounter Miscellaneous Notes * Telephone Encounter - Atuumn Henry MD - 12/27/2021 4:59 PM EDT Called patient to discuss results of cardiac MRI which demonstrated no evidence of structural heartdisease and no LGE. We discussed management of PVCs includin) surveillance 2) AAD 3) ablation She wishes to proceed with a plan of surveillance with routine follow up with LV assessment +/- ambulatory monitoring approximately yearly. documented in this encounter Plan of Treatment Not on file documented as of this encounter Visit Diagnoses Not on filedocumented in this encounter Care Teams International Specialist Relationship Specialty Start Date End Date Carol Vo, CLIFFORD [address] [place] [address] PCP - General Family Medicine 10/13/21 documented as of this encounter
--- OUTSIDE RECORDS SUMMARY | 2024-06-29 12:52 | XMS_ITS | Encounter Summary ---
[place] [address] Care Team Providers Care Glove Turner And Former Name Role Phone Rajesh De MD Primary Care Provider + Encounter Details Date Type Department Care Team (Late st Contact Info) Description 08/11/2010 9:30 AM EST Office Visit Obstetrics [place] [address] Nisreen Gabriel APRN [facility] [place] [address] Discharge Disposition: Home Social History Tobacco Use [...] on filedocumented in this encounter Care Teams Glove Turner And Former Relationship Specialty Start Date End Date Rajesh De MD [address] [place] [address] PCP - General 08/01/10 06/04/17 documented as of this encounter
--- OUTSIDE RECORDS SUMMARY | 2024-06-29 12:52 | XMS_ITS | Encounter Summary ---
[place] [address] Care Team Providers Care Shipping Checker Name Role Phone Carol Vo APRN Primary Care Provider [phone] Reason for Referral * Diagnostic Test (Routine) - Closed Specialty Diagnoses / Procedures Referred By Contac t Referred To Contact Diagnoses Pre-operative cardiovascular examination VT (ventricular tachycardia) Hypertension, unspecified type Procedures Echocardiogram Stress (Treadmill) Dayton Mcrae MD [facility] [place] [address] [facility] [place] [address] Referral ID Status Reason Start Date Expiration Date V isits Requested Visits Authorized [id number] Closed Specialty Service Requested 01/23/2022 04/23/2022 1 1 Encounter Details Date Type Department Care Team (Late st Contact Info) Description 12/28/2021 Orders Only Cardiology at [address] [address] Dayton Mcrae MD [facility] [place] [address] Pre-operative cardiovascular examination; VT (ventricular tachycardia); Hypertension, unspecified type Social History Tobacco Use Types Packs/Day Years [...] documented as of this encounter Results * STRESS ECHO W CONTRAST W LMTD SPEC DOPP COLOR DOPP (03/26/2022 10:53 AM EDT) Anatomical Region Laterality Modality Cardiac Other 03/26/2022 9:57 AM EDT Narrative 03/26/2022 11:24 AM EDT ? Exercise Stress Echocardiogram Report Name: TRI DIAS ? Study Date: 03/26/2022 09:57 AMBP: 130/90 mmHg ? Patient Location: 4A ? HR: 58 : 1980 ? Height: 65.5 in ? Account: [id number] Age: 42 yrs ? Weight: 218 lb Gender: Female ?BSA: 2.1 m2 Ordering Physician: DAYTON MCRAE Referring Physician: DAYTON MCRAE Performed By: FANNIE Medrano Reason For Study: VT (ventricular tachycardia) Exam Location: [facility]. Interpretation Summary Nondiagnostic exercise echocardiogram due to failure to achieve the target heart rate. No clinical, electrocardiographic, or echocardiographic evidence of ischemia at the achieved workload (67% MPHR, 8 METS, RPP 19k). There were no ventricular ectopic beats or sustained ventricular arrhythmias during the exam. Please see full report for baseline echocardiographic findings and exercise hemodynamics. Stress Results ? Protocol: ??Mayur ?Maximum Predicted HR: ?? 180 bpm ? Target HR: 153 bpm ?% Maximum Predicted HR: 67 % ?Stage ??DurationHeart Rate ??BP ? (mm:ss) ?? (bpm) ? Rest ?0:58 ?130/90 ? Stage 1 ?? 3:00 ? 103 ?146/98 ? Stage 2 ?? 3:00 ? 118 ?158/98 ? Stage 3 ?? 0:45 ? 121 ?/ ? Recovery ??6:00 ?81 ?132/84 ?Stress Duration: ?? 6:45 mm:ss * ?Maximum Stress HR: 121 bpm * ? METS: 8 Procedure Stress echocardiogram with contrast, with limited spectral and color Doppler. Image enhancement Definity was used for left ventricular opacification. Type of Stress Test: Mayur protocol. The patient's blood pressure was normal with exercise. The patient reported no chest discomfort. Exercise capacity was average. The study was terminated because of fatigue. Left Ventricle Left ventricle is of normal size. Wall thickness is normal. Left ventricular systolic function is normal. Left ventricular ejection fraction is estimated visually at 65%. There are no segmental wall motion abnormalities. Right Ventricle The right ventricle is of normal size. Right ventricular systolic function is normal. Aortic Valve The aortic valve is structurally normal. The aortic valve is tricuspid. There is no aortic stenosis. There is no aortic regurgitation. Mitral Valve The mitral valve is structurally and functionally normal. There is trace mitral regurgitation. Tricuspid Valve The tricuspid valve is structurally normal. There is trace tricuspid regurgitation. Great Vessels Ascending aorta is normal in size. Effusion The pericardium appears normal. There is no pericardial effusion. Rest ECG/Medications The baseline rhythm is sinus bradycardia. The patient's oxygen saturation at baseline was 100%. The patient's resting blood pressure was normal at baseline. The patient is on the following cardiac medications:. BOONE inhibitor or ARB. Beta angy. There was no hold on beta angy per the ordering physician. Stress ECG There was no new ST segment depression with stress. The patient's oxygen saturation during stress was 98%. Stress Echo The left ventricular ejection fraction is hyperdynamic at peak exercise. There was normal augmentation of all left ventricular wall segments post exercise. Recovery There was a maximum .[address] segment depression in the inferior lead(s) with stress. ? 2D Measurements ?asc Aorta Diam: 2.8 cm Doppler TR max neelam: 237.2 cm/sec I ?WMSI = 1.00 ? % Normal = 100 V ?WMSI = 1.00 ? % Normal = 100 ?Segments ??Size X - Cannot ?2 - ?4 - ?1-2 ? small Interpret ?1 - Normal ?? Hypokinetic 3 - Akinetic Dyskinetic ?? 3-5 ? moderate 5 - ? 6-14 ?large Aneurysmal ?15-16 ?? diffuse Procedure Note aCdence Richey MD - 03/26/2022 Exercise Stress Echocardiogram Report Name: TRI DIAS Study Date: 209:57 AMBP: 130/90 mmHg Patient Location: HR: 58 : 1980 Height: 65.5 in Account: [id number] Age: 42 yrs Weight: 218 lb Gender: Female BSA: 2.1 m2 Ordering Physician: DAYTON MCRAE Referring Physician: DAYTON MCRAE Performed By: FANNIE Medrano Reason For Study: VT (ventricular tachycardia) Exam Location: [facility]. Interpretation Summary Nondiagnostic exercise echocardiogram due to failure to achieve the targetheart rate. No clinical, electrocardiographic, or echocardiographic evidence ofischemia at the achieved workload (67% MPHR, 8 METS, RPP 19k). There were noventricular ectopic beats or sustained ventricular arrhythmias during the exam. Please see full report for baseline echocardiographic findings andexercise hemodynamics. Stress Results Protocol: Mayur Maximum Predicted HR: 180 bpm Target HR: 153 bpm % Maximum Predicted HR: 67 % Stage DurationHeart Rate BP (mm:ss) (bpm) Rest 0:58 130/90 Stage 1 3:00 103 146/98 Stage 2 3:00 118 158/98 Stage 3 0:45 121 / Recovery 6:00 81 132/84 Stress Duration: 6:45 mm:ss * Maximum Stress HR: 121 bpm * METS: 8 Procedure Stress echocardiogram with contrast, with limited spectral and colorDoppler. Image enhancement Definity was used for left ventricular opacification.Type of Stress Test: Mayur protocol. The patient's blood pressure was normalwith exercise. The patient reported no chest discomfort. Exercise capacity wasaverage. The study was terminated because of fatigue. Left Ventricle Left ventricle is of normal size. Wall thickness is normal. Leftventricular systolic function is normal. Left ventricular ejection fraction isestimated visually at 65%. There are no segmental wall motion abnormalities. Right Ventricle The right ventricle is of normal size. Right ventricular systolic functionis normal. Aortic Valve The aortic valve is structurally normal. The aortic valve is tricuspid.There is no aortic stenosis. There is no aortic regurgitation. Mitral Valve The mitral valve is structurally and functionally normal. There is tracemitral regurgitation. Tricuspid Valve The tricuspid valve is structurally normal. There is trace tricuspid regurgitation. Great Vessels Ascending aorta is normal in size. Effusion The pericardium appears normal. There is no pericardial effusion. Rest ECG/Medications The baseline rhythm is sinus bradycardia. The patient's oxygen saturationat baseline was 100%. The patient's resting blood pressure was normal atbaseline. The patient is on the following cardiac medications:. BOONE inhibitor orARB. Beta angy. There was no hold on beta angy per the ordering physician. Stress ECG There was no new ST segment depression with stress. The patient's oxygen saturation during stress was 98%. Stress Echo The left ventricular ejection fraction is hyperdynamic at peak exercise.There was normal augmentation of all left ventricular wall segments post exercise. Recovery There was a maximum .[address] segment depression in the inferior lead(s)with stress. 2D Measurements asc Aorta Diam: 2.8 cm Doppler TR max neelam: 237.2 cm/sec I WMSI = 1.00 % Normal = 100 V WMSI = 1.00 % Normal = 100 SegmentsSize X - Cannot 2 - 4 - 1-2small Interpret 1 - Normal Hypokinetic 3 - Akinetic Dyskinetic 3-5moderate 5 - 6-14large Aneurysmal 15-16diffuse Dayton Mcrae MD ECHO ORDERABLES documented in this encounter Visit Diagnoses Diagnosis Pre-operative cardiovascular examination VT (ventricular tachycardia) Paroxysmal ventricular tachycardia Hypertension, unspecified type Pre-operative cardiovascular examination VT (ventricular tachycardia) Paroxysmal ventricular tachycardia Hypertension, unspecified type documented in this encounter Care Teams Shipping Checker Relationship Specialty Start Date End Date Danielle VoCLIFFORD ly [address] [place] [address] PCP - General Family Medicine 10/13/21 documented as of this encounter
--- OUTSIDE RECORDS SUMMARY | 2024-06-29 12:52 | XMS_ITS | Encounter Summary ---
[place] [address] Care Team Providers Care Agricultural Mechanic Name Role Phone Carol Vo CLIFFORD Primary Care Provider Reason for Referral * Diagnostic Test (Routine) - Closed Specialty Diagnoses / Procedures Referred By Alvinac t Referred To Contact Cardiology Diagnoses PVC (premature ventricular contraction) Procedures Ziopatch 48 Hrs-15 Days Meera Austin U[employer] RESEARCH[employer] [facility] [place] [address] [facility] [place] [address] Referral ID Status Reason Start Date Expiration Date V isits Requested Visits Authorized [id number] Closed Specialty Service Requested 05/02/2023 05/01/2024 1 1 Reason for Visit * Diagnostic Test (Routine) - Closed Specialty Diagnoses / Procedures Referred By Contac t Referred To Contact Cardiology Diagnoses PVC (premature ventricular contraction) Procedures Ziopatch 48 Hrs-15 Days Meera Austin [employer] [facility] [place] [address] [facility] [place] [address] Referral ID Status Reason Start Date Expiration Date V isits Requested Visits Authorized [id number] Closed Specialty Service Requested 05/02/2023 05/01/2024 1 1 Encounter Details Date Type Department Care Team (Latest Contact Info) Description 05/02/2023 3:00 PM EDT - 05/02/2023 11:59 PM EDT Hospital Encounter [place] [address] Meera Austin APRN [facility] [place] [place] [address] PVC (premature ventricular contraction) Discharge Disposition: Home Social History Tobacco Use [...] 24 hr 09/01/2021 multivitamin (THERAGRAN) tablet 08/11/2010 OM-3/E/LINOL/ALA/OLEIC/GL A/LIP (OMEGA 3-6-9 ORAL) 08/11/2010 CALCIUM CARBONATE/VITAMIN D2 (OYSTER SHELL CALCIUM WITH D ORAL) 08/11/2010 documented as of this encounter Plan of Treatment Not on file documented as of this encounter Procedures Procedure Name Priority Date/Time Associated Diagnosis Comments ZIOPATCH 48 HRS-15 DAYS Routine 05/02/2023 3:10 PM EDT PVC (premature ventricular contraction) documented in this encounter Results * Ziopatch 48 Hrs-15 Days (05/02/2023 3:10 PM EDT) Anatomical Region Laterality Modality Other Narrative 05/28/2023 10:50 AM EDT Images from the original result were not included. [facility] ? Zio Patch? Ambulatory Cardiac Event Monitor Report Duration of recording : 13 days and 14 hours Indication: Ventricular premature beats Summary Data Predominant rhythm: Sinus rhythm Minimum sinus rate 52 bpm at 4:52 AM. Maximum sinus rate 133 bpm at 10:41 PM. Average heart rate 84 bpm Sinus rates >100bpm occurred 11% of the time. Sinus rates <50bpm occurred 0% of the time. Atrial fibrillation: None Pauses: None Atrial ectopic beats: Rare atrial premature beats (APC? s) Ventricular ectopic beats: There were frequent isolated monomorphic ventricular premature beats (VPC's) with an overall burden of 7.8%. ??There were rare ventricular couplets and occasional (2.3%) ventricular triplets. Abnormal tachycardia: There were 30,544 episodes of sustained and nonsustained ventricular tachycardia lasting 4 beats or more with an average overall rate of 137 bpm. ??There were 6 episodes of supraventricular tachycardia with an average rate of 125 bpm. ??The longest episode lasted 9 beats with a maximum rate of 144 bpm. Triggered and Patient Diary Events There were 112 triggered and 0 patient diary events. ??The majority of patient triggered events correspond to episodes of nonsustained ventricular tachycardia or sinus rhythm with ventricular bigeminy and ventricular ectopic beats. Conclusion(s): ?? This monitor is notable for a high burden (greater than 30,000 episodes) of symptomatic sustained and nonsustained ventricular tachycardia with an average rate of 160 bpm. ??The longest episode of ventricular tachycardia lasted 1 minute in duration. ??There were 112 patient triggers in the context of ventricular ectopy and ventricular tachycardia, however, there were no symptoms reported in the diary. In addition to the ventricular tachycardia described and demonstrated above there is a 7.8% burden of isolated monomorphic ventricular premature beats and a 2.3% burden of ventricular triplets. Results reported to the electrophysiology service. ??Dr. Henry last saw in 2021. Meera Austin APRN CARDIAC SERVICES ORD ERABLES documented in this encounter Visit Diagnoses Diagnosis PVC (premature ventricular contraction) Other premature beats documented in this encounter Care Teams Agricultural Mechanic Relationship Specialty Start Date End Date Carol Vo APRN [address] [place] [address] PCP - General Family Medicine 10/13/21 documented as of this encounter
--- OUTSIDE RECORDS SUMMARY | 2024-06-29 12:52 | XMS_ITS | Encounter Summary ---
[place] [address] Care Team Providers Care Web Press Operator Helper Offset Name Role Phone Carol Vo APRN Primary Care Provider [phone] Encounter Details Date Type Department Care Team (Late st Contact Info) Description 12/12/2021 Orders Only Cardiology at [address] [address] Elio Huitron MD [facility] [place] [address] VT (ventricular tachycardia) (Primary Dx); Pre-operative cardiovascular examination Social History Tobacco Use Types Packs/Day [...] this encounter Visit Diagnoses Diagnosis VT (ventricular tachycardia)- Primary Paroxysmal ventricular tachycardia Pre-operative cardiovascular examination documented in this encounter Care Teams Web Press Operator Helper Offset Relationship Specialty Start Date End Date Carol Vo APRN [address] [place] [address] PCP - General Family Medicine 10/13/21 documented as of this encounter
--- OUTSIDE RECORDS SUMMARY | 2024-06-29 12:52 | XMS_ITS | Encounter Summary ---
[place] [address] Care Team Providers Care Detective Bureau Chief Name Role Phone Carol Vo APRN Primary Care Provider [phone] Reason for Referral * Diagnostic Test (Routine) - Closed Specialty Diagnoses / Procedures Referred By Contac t Referred To Contact Diagnoses Pre-operative cardiovascular examination VT (ventricular tachycardia) Hypertension, unspecified type Procedures Echocardiogram Stress (Treadmill) Dayton Mcrae MD [facility] [place] [address] [facility] [place] [address] Referral ID Status Reason Start Date Expiration Date V isits Requested Visits Authorized [id number] Closed Specialty Service Requested 01/23/2022 04/23/2022 1 1 Reason for Visit * Diagnostic Test (Routine) - Closed Specialty Diagnoses / Procedures Referred By Contac t Referred To Contact Diagnoses Pre-operative cardiovascular examination VT (ventricular tachycardia) Hypertension, unspecified type Procedures Echocardiogram Stress (Treadmill) Dayton Mcrae MD [facility] [place] [address] [facility] [place] [address] Referral ID Status Reason Start Date Expiration Date V isits Requested Visits Authorized [id number] Closed Specialty Service Requested 01/23/2022 04/23/2022 1 1 Encounter Details Date Type Department Care Team (Latest Contact Info) Description 03/26/2022 9:22 AM EDT - 03/26/2022 11:59 PM EDT Hospital Encounter Non-Invasive Cardiology Lab [facility] [place] [address] Dayton Mcrae MD [facility] [place] [address] Pre-operative cardiovascular examination; VT (ventricular tachycardia); Hypertension, unspecified type Discharge Disposition: Home Social History Tobacco Use [...] Name Priority Date/Time Associated Diagnosis Comments STRESS ECHO W CONTRAST W LMTD SPEC DOPP COLOR DOPP Routine 03/26/2022 10:53 AM EDT Pre-operative cardiovascular examination VT (ventricular tachycardia) Hypertension, unspecified type documented in this encounter Results * STRESS ECHO W [...] 1980 ? Height: 65.5 in ? Account: [id number] Age: 42 yrs ? Weight: 218 lb Gender: Female ?BSA: 2.1 m2 Ordering Physician: DAYTON MCRAE Referring Physician: DAYTON MCRAE Performed By: FANNEI Medrano Reason For Study: VT (ventricular tachycardia) Exam Location: [facility]. Interpretation Summary Nondiagnostic exercise echocardiogram due to [...] ?large Aneurysmal ?15-16 ?? diffuse Procedure Note Cadence Richey MD - 03/26/2022 Exercise Stress Echocardiogram Report Name: TRI DIAS Study Date: 209:57 AMBP: 130/90 mmHg Patient Location: HR: 58 : 1980 Height: 65.5 in Account: [id number] Age: 42 yrs Weight: 218 lb Gender: Female BSA: 2.1 m2 Ordering Physician: DAYTON MCRAE Referring Physician: DAYTON MCRAE Performed By: FANNIE Medrano Reason For Study: VT (ventricular tachycardia) Exam Location: [facility]. Interpretation Summary Nondiagnostic exercise echocardiogram due to [...] Hypertension, unspecified type documented in this encounter Administered Medications Inactive Administered Medications - up to 3 most recent administrations Medication Order MAR Action Action Date Dose Rate Site perflutren lipid microspheres (Definity) injection 1.5 mL 1.5 mL, Intravenous, ONCE PRN, 1 dose, Starting on Sat03/26/22 at 1053, Until Sat03/26/22 at 1030, per protocol, Routine Given 03/26/2022 10:30 AM EDT 1.5 mLs documented in this encounter Care Teams Detective Bureau Chief Relationship Specialty Start Date End Date Carol Vo, [place] [address] [place] [address] [address] [place] [address] PCP - General Family Medicine 10/13/21 documented as of this encounter
--- OUTSIDE RECORDS SUMMARY | 2024-06-29 12:52 | XMS_ITS | Encounter Summary ---
Author Organization [facility] [place] [address] Care Team Providers Care Fish Bin Tender Name Role Phone Carol Vo APRN Primary Care Provider Encounter Details Date Type Department Care Team (Late st Contact Info) Description 12/12/2021 11:20 AM EDT Office Visit Cardiology at [address] [phone] Elio Huitron MD [facility] [place] [address] [place] (ventricular tachycardia); Pre-operative cardiovascular examination; Hypertension, unspecified type Social History Tobacco Use [...] on file documented as of this encounter Last Filed Vital Signs Vital Sign Reading Time Taken Comments Blood Pressure 149/101 12/12/2021 11:37 AM EDT Pulse 72 12/12/2021 11:37 AM EDT Temperature - - Respiratory Rate 16 12/12/2021 11:3 7 AM EDT Oxygen Saturation 98% 12/12/2021 11: 37 AM EDT Inhaled Oxygen Concentration - - Weight 99.7 kg (219 lb 11.2 oz) 022 11:37 AM EDT Height 167.6 cm (5' 6) 12/12/2021 11:3 7 AM EDT Body Mass Index 35.46 12/12/2021 11:37 AM EDT documented in this encounter Patient Instructions * Patient Instructions* Elio Huitron MD - 12/12/2021 11:56 AM EDT I have not made any changes in your medications today. If the stress MRI is normal, you are cleared for your surgery. Please be sure to take all your medications the day of surgery with a sip of water. documented in this encounter Progress Notes * Elio Huitron MD - 12/12/2021 11:20 AM EDT Images from the original note were not included. Former[facility] [place] [address] [place] [address] CARDIOLOGY OUTPATIENT PROGRESS NOTE PRIMARY CARE PROVIDER: Carol Vo APRN REFERRING PROVIDER: Carol Vo PROBLEM LIST: Patient Active Problem List Diagnosis ??? VT (ventricular tachycardia) ??? Pre-operative cardiovascular examination ??? Hypertension ??? 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 losartan (Cozaar) 50 mg Tablet Take 1 tablet by mouth daily. Has not started as of 10/17/21 90 tablet 3 ??? venlafaxine (EFFEXOR-XR) 150 mg Capsule, Sust. Release 24 hr ??? metoprolol succinate XL (Toprol-XL) 50 mg Tablet Sustained Release 24 hr Take 1 tablet by mouth2 times daily. 90 tablet 5 ??? multivitamin (THERAGRAN) tablet ??? OM-3/E/LINOL/ALA/OLEIC/GLA/LIP (OMEGA 3-6-9 ORAL) ??? CALCIUM CARBONATE/VITAMIN D2 (OYSTER SHELL CALCIUM WITH D ORAL) No current facility-administered medications for this visit. Subjective: Patient ID: Tri Dias is a 42 y.o. patient of Carol Vo APRN. HPI: This is a 41-year-old female with a history of ventricular tachycardia currently undergoing a work-up by our EP department with Dr. Henry who is being seen now for preoperative clearance prior to knee surgery. This will be the fourth operation on this chronically injured knee. It is quite painfuland is preventing the patient from exercising. As a result functional capacity is difficult to assess. She can climb stairs but only leading with a single leg. She has not been able to walk for exercise and has not been able to use the stationary bicycle that she recently purchased. She does have occasional chest discomfort during her episodes of ventricular tachycardia. These often occur at restand would be most prominent when the episodes of VT are more prolonged or more severe. Part of the evaluation is a stress MRI in order to assess for ischemia as a component. Otherwise though she has never been diagnosed with coronary artery disease. No history of congestive heart failure. She denies angina. No exertional dyspnea. No syncopal episodes. REVIEW OF SYSTEMS: Otherwise unremarkable Family History: No family history on file. Social History: Social History Socioeconomic History ??? Marital status: Spouse name: Not on file ??? Number of children: Not on file ??? Years of education: Not on file ??? Highest education level: Not on file Occupational History ??? Not on file Tobacco Use ??? Smoking status: Former Smoker Packs/day: 0.50 Years: 14.00 Pack years: 7.00 Types: Cigarettes Quit date: 10/2020 Years since quittin.4 ??? Smokeless tobacco: Never Used Vaping Use ??? Vaping Use: Every day Substance and Sexual Activity ??? Alcohol use: Yes Comment: occ ??? Drug use: No ??? Sexual activity: Not on file Other Topics Concern ??? Not on file Social History Narrative ??? Not on file Social Determinants of Health Financial Resource Strain: Not on file Food Insecurity: Not on file Transportation Needs: Not on file Physical Activity: Not on file Housing Stability: Not on file Objective: PHYSICAL EXAM: BP (!) 149/101 Pulse 72 Resp 16 Ht 167.6 cm (5' 6) Wt 99.7 kg (219 lb 11.2 oz) SpO2 98% BMI 35.46 kg/m?? , Body mass index is 35.46 kg/m??. General: Pleasant. No distress. Skin: Warm and dry. HEENT: Anicteric sclera. Neck: JVP not elevated. No AJR. No carotid bruits. Chest: Clear to auscultation Heart: No heave. Regularly regular rhythm. Normal S1 and S2. No gallops. No murmurs. Abdomen: Nondistended. Soft. Nontender. Extremities: No edema. APPLE PICKING SUPERVISOR: Normal mentation. Psych: Appropriate affect. Labs: Assessment and Plan: Pre-operative cardiovascular examination She has no history of angina and no diagnosed coronary artery disease. Her stress cardiac MRI is pending. Assuming that this is unremarkable I think that she is an excellent candidate for knee surgery as planned. Any significant ischemia of course will need us to do further evaluation. Also we willhave another look at her LV function. Assuming however that there is nothing unexpected on her cardiac MRI she may proceed with knee surgery. VT (ventricular tachycardia) She remains asymptomatic from her ventricular tachycardia. Her work-up is in progress, with a stress cardiac MRI. She is currently on an appropriate beta- angy dose. She is scheduled for follow-up with EP following her testing. Hypertension Her blood pressure remains elevated. She only recently went up to the current dose of losartan. If it remains in this range I think she will need to ultimately increase to losartan 100 mg daily but she has not had a sufficient time to assess her response to the most recent increase. Patient Instructions ??? I have not made any changes in your medications today. ??? If the stress MRI is normal, you are cleared for your surgery. ??? Please be sure to take all your medications the day of surgery with a sip of water. Thank you for the opportunity to participate in this patient's cardiovascular care. All questions were answered and I look forward to the next visit. Elio Huitron MD A total of 45 minutes were spent on this visit including preparation, record review, time with the patient and documentation. documented in this encounter Miscellaneous Notes * Assessment & Plan Note - Elio Huitron MD - 12/12/2021 1:30 PM EDT Associated Problem(s): Hypertension Her blood pressure remains elevated. She only recently went up to the current dose of losartan. If it remains in this range I think she will need to ultimately increase to losartan 100 mg daily but she has not had a sufficient time to assess her response to the most recent increase. * Assessment & Plan Note - Elio Huitron MD - 12/12/2021 1:30 PM EDT Associated Problem(s): VT (ventricular tachycardia) She remains asymptomatic from her ventricular tachycardia. Her work-up is in progress, with a stress cardiac MRI. She is currently on an appropriate beta- angy dose. She is scheduled for follow-up with EP following her testing. * Assessment & Plan Note - Elio Huitron MD - 12/12/2021 1:26 PM EDT Associated Problem(s): Pre-operative cardiovascular examination She has no history of angina and no diagnosed coronary artery disease. Her stress cardiac MRI is pending. Assuming that this is unremarkable I think that she is an excellent candidate for knee surgery as planned. Any significant ischemia of course will need us to do further evaluation. Also we willhave another look at her LV function. Assuming however that there is nothing unexpected on her cardiac MRI she may proceed with knee surgery. documented in this encounter Plan of Treatment Not on file documented as of this encounter Visit Diagnoses Diagnosis VT (ventricular tachycardia) Paroxysmal ventricular tachycardia Pre-operative cardiovascular examination Hypertension, unspecified type documented in this encounter Care Teams Fish Bin Tender Relationship Specialty Start Date End Date Carol Vo APRN [address] [place] [address] [address] [place] [address] PCP - General Family Medicine 10/13/21 documented as of this encounter
--- OUTSIDE RECORDS SUMMARY | 2024-06-29 12:52 | XMS_ITS | Encounter Summary ---
Author Organization [facility] [address] Care Team Providers Care Drier Operator Name Role Phone Carol Vo APRN Primary Care Provider [phone]- [phone] Reason for Referral * Consultation (Urgent) - Closed Specialty Diagnoses / Procedures Referred By Contact Referred To Contact Electrophysiology / Cardiology Diagnoses Frequent PVCs frequent PVC, seen in ED @ [facility], dean of education Steelscope Operator reccomended f/up w/EP. Joseluis Correa MD [address] [place] [address] [place] [address] [facility] [address] [place] [phone] Referral ID Status Reason Start Date Expiration Date V isits Requested Visits Authorized [id number] Closed Consult, Test & Treat PCP Updated and/or Approved 10/13/2021 10/13/2022 6 6 Encounter Details Date Type Department Care Team (Late st Contact Info) Description 10/13/2021 Trans[place] [phone] Joseluis Correa MD [address] [place] [id number] Frequent PVCs Social History Tobacco Use Types Packs/Day Years Used Date Smoking Tobacco: Every Day Cigarettes 0.5 14 Alcohol Use Standard Drinks/Week Comments Yes 0 (1 standard drink = 0.6 oz pur e alcohol) occ Sex and Gender Information Value Date Recorded Sex Assigned at Not on file Gender Identity Not on file Sexual Orientation Not on file documented as of this encounter Plan of Treatment Scheduled Referrals Name Type Priority Associated Diagnoses Order Schedule Referral to Cardiac Electrophysiology Outpatient Referral Routine Frequent Pvcs Ordered: 10/13/2021 documented as of this encounter Visit Diagnoses Diagnosis Frequent PVCs Other premature beats documented in this encounter Care Teams Drier Operator Relationship Specialty Start Date End Date Carol Vo APRN [address] [place] [address] PCP - General Family Medicine 10/13/21 documented as of this encounter
--- OUTSIDE RECORDS SUMMARY | 2024-06-29 12:52 | XMS_ITS | Encounter Summary ---
Author Organization [facility] [place] [address] Care Team Providers Care Route Sales Trainee Name Role Phone Carol Vo APRN Primary Care Provider Reason for Visit * Reason Comments New Med Request Encounter Details Date Type Department Care Team (Late st Contact Info) Description 06/23/2023 Refill Cardiology at [address] [phone] Autumn Henry MD [facility] [place] [address] New Med Request Social History Tobacco Use Types Packs/Day Years [...] on filedocumented in this encounter Care Teams Route Sales Trainee Relationship Specialty Start Date End Date Carol Vo APRN [address] [place] [address] PCP - General Family Medicine 10/13/21 documented as of this encounter
--- OUTSIDE RECORDS SUMMARY | 2024-06-29 12:52 | XMS_ITS | Encounter Summary ---
Author Organization [facility] [place] [address] Care Team Providers Care Electrical Accessories Assembler Name Role Phone Carol Vo CLIFFORD Primary Care Provider Encounter Details Date Type Department Care Team (Late st Contact Info) Description 10/16/2023 4:30 PM EST Office Visit Cardiology at [address] [phone] Meera Austin APRN [facility] [place] [address] VT (ventricular tachycardia); Encounter for monitoring flecainide [...] PM EST Temperature - - Respiratory Rate - - Oxygen Saturation 100% 10/16/2023 4:15 PM EST Inhaled Oxygen Concentration - - Weight 91.9 kg (202 lb 9.6 oz) 10/16/2023 4:15 P M EST Height 165.1 cm (5' 5) 10/16/2023 4:15 PM EST Body Mass Index 33.71 10/16/2023 4:15 PM EST documented in this encounter Patient Instructions * Patient Instructions* Meera Austin APRN - 10/16/2023 4:30 PM EST Was nice to see you today Tri for follow-up of your flecainide monitoring. Your stress test was normal and showed no evidence of ischemia, which would be indicative of decreased blood flow in coronary arteries, and you would not be able to take flecainide any longer. The EKG at rest and while exercising showed normal intervals. Your liver function today was noted to be a little elevated, which had like to recheck in 3 months.This can be done at [facility], and I will have the schedulers coordinate this testing for you. Otherwise, we will follow-up in 6 months, which will be March. Is important to maintain monitoring for flecainide with EKGs and lab work. * Attachments The following attachments cannot be sent through Care Everywhere. * Flecainide Oral Tablet (FLECAINIDE - ORAL) (Lao) documented in this encounter Progress Notes * Meera Austin APRN - 10/16/2023 4:30 PM EST Images from the original note were not included. Cardiac Electrophysiology Clinic Visit Subjective: Patient ID: Tri Dias is a 43 y.o. female. CC: Follow up of PVCs HPI: 43 y.o. female with past medical history of HTN, PVCs followed by Dr. Henry who presents in EP clinic. Flecainide 100 mg BID was started in May [address] Henry, and increased to 150 mg BID late May. Continues on flecainide 150 mg BID. Continues on metoprolol 100 mg a.m. and 50 mg p.m. A stress test today showed no evidence of ischemia No LA or QRS prolongation. Today she reports occasional episodes of racing heart and shortness of breath with lightheadedness especially when she is overtired. Before, it was nonstop. She absolutely notices these episodes less often. She is no longer waking up in the middle of the night with racing heart symptoms. She is not exercising regularly. No changes in medications. Continues to vape daily, marijuana use. No other substance use, drinks occasional alcohol. Continues to work at [employer]. 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 flecainide (Tambocor) 100 mg tablet Take 1.5 tablets by mouth 2 times daily. Note dosage increase on 06/18/23 to 150 mg twice daily. 270 tablet 3 metoprolol succinate XL (Toprol-XL) 50 mg ER 24 hr tablet Take 2 tablets by mouth every morning AND1 tablet every evening. 90 tablet 5 losartan (Cozaar) 50 mg Tablet Take 1 tablet by mouth daily. Has not started as of 10/17/21 (Patient taking differently: Take 100 mg by mouth daily. Has not started as of 10/17/21) 90 tablet 3 venlafaxine (EFFEXOR-XR) 150 mg Capsule, Sust. Release 24 hr multivitamin (THERAGRAN) tablet OM-3/E/LINOL/ALA/OLEIC/GLA/LIP (OMEGA 3-6-9 ORAL) CALCIUM CARBONATE/VITAMIN D2 (OYSTER SHELL CALCIUM WITH D ORAL) Objective: Vitals: Vitals: 10/16/23 1615 BP: (!) 153/95 Pulse: 59 SpO2: 100% Weight: 91.9 kg (202 lb 9.6 oz) Height: 165.1 cm (5' 5) Physical Exam: General- No acute distress, sitting comfortably in exam room chair HEENT- Head atraumatic, normocephalic Skin-warm, dry, intact Neck- No JVD noted Cardiovascular- S1/S2 regular rate and rhythm. No murmur, rub or gallop Lungs- Clear to auscultation bilaterally Extremities- Pulses equal bilaterally. No edema noted Neuro- A&Ox3 ECG in office today shows normal sinus rhythm 60 bpm, LA 160 ms, QRS 82 ms, QT 456 ms, QTc 456 ms. Exercise stress test (treadmill): 10/16/2023 Antiarrhythmic Follow-Up Labs: Latest Reference Range & Units 10/16/23 14:32 Sodium 135 - 145 mmol/L 138 Potassium 3.5 - 5.0 mmol/L 4.1 Chloride 98 - 107 mmol/L 102 CO2 22 - 31 mmol/L 27 Anion Gap 5 - 15 mmol/L 9 BUN 8 - 18 mg/dL 12 Creatinine 0.70 - 1.20 mg/dL 0.87 Estimated GFR >=60 mL/min/1.73 m?? 86 Calcium 8.5 - 10.5 mg/dL 9.8 Glucose Lvl 65 - 199 mg/dL 110 Total Protein 6.1 - 8.0 g/dL 6.8 Albumin 3.2 - 5.2 g/dL 4.0 Total Bilirubin 0.2 - 1.3 mg/dL 0.4 Alk Phos 35 - 105 unit/L 130 (H) AST 0 - 30 unit/L 62 (H) ALT 0 - 30 unit/L 74 (H) (H): Data is abnormally high Assessment and Plan: 43 y.o. with medical history significant for HTN, PVCs followed by Dr. Henry who presents in EP clinic. Taking flecainide 150 mg twice daily for NSVT, as noted on Zio patch with thousands of episodes. Stable EKG and stress test today. No evidence of ischemia and normal LA and QRS. Labs today showed mild elevation in LFTs with apparently no explanation for slight rise. Recommended to check in 3 months, which can be done at [facility]. Otherwise, follow follow-up in 6 months in EP clinic for flecainide monitoring with EKG and labs. Plan: 1. LFTs in 3 months at [facility]. 2. Follow-up in EP clinic for flecainide monitoring with EKG and labs in 6 months. 3. Continue flecainide 150 mg twice daily for NSVT 4. Continue metoprolol succinate. Meera Austin, EGG AND SPICE MIXER 10/16/2023 Patient Instructions Was nice to see you today Tri for follow-up of your flecainide monitoring. Your stress test was normal and showed no evidence of ischemia, which would be indicative of decreased blood flow in coronary arteries, and you would not be able to take flecainide any longer. The EKG at rest and while exercising showed normal intervals. Your liver function today was noted to be a little elevated, which had like to recheck in 3 months.This can be done at [facility], and I will have the schedulers coordinate this testing for you. Otherwise, we will follow-up in 6 months, which will be March. Is important to maintain monitoring for flecainide with EKGs and lab work. documented in this encounter Plan of Treatment Scheduled Orders Name Type Priority Associated Diagnoses Orde r Schedule Hepatic Function Panel Lab Routine Encounter for monitoring flecainide therapy Expected: 01/14/2024, Expires: 10/15/2024 EKG 12 Lead ECG Routine VT (ventricular tachycardia) Encounter for monitoring flecainide therapy Expected: 04/15/2024, Expires: 10/15/2024 Comprehensive metabolic panel (non-fasting) Lab Routine VT (ventricular tachycardia) Encounter for monitoring flecainide therapy Expected: 04/15/2024 (Approximate), Expires: 10/15/2024 documented as of this encounter Procedures Procedure Name Priority Date/Time Associated Diagnosis Comments EKG 12-LEAD Routine 10/16/2023 4:26 PM EST VT (ventricular tachycardia) Encounter for monitoring flecainide therapy documented in this encounter Results * EKG 12 Lead (10/16/2023 4:26 PM EST) Ventricular rate 60 BPM MUSE SYSTEM Atrial Rate 60 BPM MUSE SYSTEM P-R Interval 160 ms MUSE SYSTEM QRS Duration 82 ms MUSE SYSTEM Q-T Interval 456 ms MUSE SYSTEM QTC Calculated (Bezet) 456 ms MUSE SYSTEM Calculated P [place] 55 degrees MUSE SYSTEM Calculated R [place] 27 degrees MUSE SYSTEM Calculated T [place] 41 degrees MUSE SYSTEM INTERPRETATION Normal sinus rhythm Possible Left atrial enlargement Borderline ECG When compared with ECG of 14-JUN-2023 16:45, T wave amplitude has decreased in Inferior leads Confirmed by MD Chavez Katharine (Avelino) on 10/19/2023 3:49:32 PM MUSE SYSTEM 10/16/2023 4:26 PM EST 10/19/2023 3:49 PM EST Meera Austin EGG AND SPICE MIXER ECG ORDERABLES MUSE SYSTEM * (ABNORMAL) Comprehensive metabolic panel (non-fasting) (10/16/2023 2:32 PM EST) Glucose 110 65 - 199 mg/dL [facility] Comment:Diabetes: >=200 mg/d L plus symptoms Blood Urea Nitrogen 12 8 - 18 mg/dL [facility] Creatinine 0.87 0.70 - 1.20 mg/dL [facility] Sodium 138 135 - 145 mmol/L [facility] Potassium 4.1 3.5 - 5.0 mmol/L [facility] Comment: Please note: ??Patients with WBC >100,000 may have falsely elevated Potassium levels. ??For accurate Potassium quantification in these patients send serum separator tube (gold top) for subsequent determinations. ??Contact the Clinical Chemistry Laboratory if there are any questions. Chloride 102 98 - 107 mmol/L [facility] Carbon Dioxide 27 22 - 31 mmol/L [facility] Anion Gap 9 5 - 15 mmol/L [facility] Calcium 9.8 8.5 - 10.5 mg/dL [facility] Protein, Total 6.8 6.1 - 8.0 g/dL [facility] Albumin 4.0 3.2 - 5.2 g/dL [facility] Aspartate Aminotransferase 62(H) 0 - 30 unit/L [facility] Alanine Aminotransferase 74(H) 0 - 30 unit/L [facility] Alkaline Phosphatase 130(H) 35 - 105 unit/L [facility] Bilirubin, Total 0.4 0.2 - 1.3 mg/dL [facility] Est Glomerular Filtration Rate 86 >=60 mL/min/1. 73 m?? [facility] Comment: This patient's estimated GFR was [...] Resulting Agency Comment Spec In Lab Meera Jayne Norman EGG AND SPICE MIXER CHEMISTRY ORDERABLES Performing Organization Address City/State/[facility] Co de Phone Number [facility] [place] [address] documented in this encounter Visit Diagnoses Diagnosis VT (ventricular tachycardia) Paroxysmal ventricular tachycardia Encounter for monitoring flecainide therapy Encounter for therapeutic drug monitoring documented in this encounter Care Teams Electrical Accessories Assembler Relationship Specialty Start Date End Date Carol Vo APRN [address] [place] [address] PCP - General Family Medicine 10/13/21 documented as of this encounter
--- OUTSIDE RECORDS SUMMARY | 2024-06-29 12:52 | XMS_ITS | Encounter Summary ---
[place] [address] Care Team Providers Care Mental Retardation Nurse Name Role Phone Carol Vo CLIFFORD Primary Care Provider Reason for Referral * Diagnostic Test (Routine) - Closed Specialty Diagnoses / Procedures Referred By Richard thomas Referred To Contact Cardiology Diagnoses PVC (premature ventricular contraction) Procedures Ziopatch 48 Hrs-15 Days Meera Austin APRN [facility] [place] [address] [address] [facility] [place] [address] Referral ID Status Reason Start Date Expiration Date V isits Requested Visits Authorized [id number] Closed Specialty Service Requested 05/02/2023 05/01/2024 1 1 Encounter Details Date Type Department Care Team (Late st Contact Info) Description 05/02/2023 2:00 PM EDT Office Visit Cardiology at [address] [phone] Meera Austin APRN [facility] [place] [address] PVC (premature ventricular contraction) Social History Tobacco Use Types Packs/Day Years [...] Sign Reading Time Taken Comments Blood Pressure 149/104 05/02/2023 2:04 PM EDT Pulse 83 05/02/2023 2:04 PM EDT Temperature - - Respiratory Rate - - Oxygen Saturation 100% 05/02/2023 2:04 PM EDT Inhaled Oxygen Concentration - - Weight 93.2 kg (205 lb 6.4 oz) 05/02/2023 2:04 P M EDT Height 167.6 cm (5' 6) 05/02/2023 2:04 PM EDT Body Mass Index 33.15 05/02/2023 2:04 PM EDT documented in this encounter Patient Instructions * Patient Instructions* Meera Austin APRN - 05/02/2023 2:00 PM EDT Nice to meet you today Tri, we discussed your PVCs utility of monitoring your heart rhythm with aZio patch for 14 days. This was applied today I believe. I will ask the schedulers to make a follow-up appointment in about 4 to 6 weeks to discuss those results. Continue your metoprolol to use PVCs. And follow-up with your PCP regarding blood pressure management. Continue to exercise and follow a healthy lifestyle. documented in this encounter Progress Notes * Meera Austin APRN - 05/02/2023 2:00 PM EDT Cardiac Electrophysiology Clinic Visit Subjective: Patient ID: Tri Dias is a 43 y.o. female. CC: Follow up of PVCs (Dr. Henry patient) Referring Provider: Carol Vo APRN [address] [place] [address] Primary Care Provider: Carol Vo APRN [address] [place] [address] HPI: 43 y.o. female with past medical history of HTN, PVCs followed by Dr. Henry who presents in EP clinic. She was seen by Dr. Henry 2/22/22 for ventricular arrhythmias. The episodes started in high school during stress or fatigue once in a while. She had nonstop episodes of bouncing and flopping palpitations lasting minutes up to hours and overthe last couple of years. No syncope, but gets lightheadedness and feels like she can't get enough oxygen despite big breaths, and has shooters bright white lights, like Star Wars in her vision when the palpitations are really bad. She has nightly palpitations, and last vision shooters were a couple weeks ago. If she is at work, goes into office and lets lightheadedness pass within seconds to minutes. She has not had chest tightness in a while. She can feel irregular pulse and it will be pounding. She has had tightness in her chest and shortness of breath and nausea, but it has not been as severe. She started magnesium and metoprolol XL 25 mg daily and noted less PVCs, but still had them every few hours. Metoprolol succinate was increased again 50 mg daily. She now is on metoprolol succinate 100 mg AM, 50 mg PM (increased 04/22 by PCP Salvador but hasnot started yet, waiting for mail away pharmacy). She is starting on Amlodipine 5mg daily. Has not started yet. 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 She is using [employer] bike, restarted last week. Weekdays, 20 min per day. Has a hurt knee that limits her activity, arthritis. Needs to schedule surgery. Per Dr. Henry's note 12/27/2021: Called patient to discuss results of cardiac MRI which demonstrated no evidence of structural heartdisease and no LGE. We discussed management of PVCs includin) surveillance 2) AAD 3) ablation She wishes to proceed with a plan of surveillance with routine follow up with LV assessment +/- ambulatory monitoring approximately yearly. Patient Active Problem List Diagnosis VT (ventricular tachycardia) Pre-operative cardiovascular examination Hypertension Female infertility of unspecified origin Overview Note: Dx replacement utility run on deactivated IMO Dx [id number] ROS: see HPI Constitutional: - fatigue, - fever, - chills, - insomnia Respiratory: - shortness of breath, - cough, - apnea, - wheezing Cardiovascular: - chest pain, + palpitations, + unusual rates Gastrointestinal: - nausea, - vomiting, - abdominal pain, - diarrhea Neurological: - lightheadedness, - dizziness, - syncope, - weakness Endocrine: - hot spells, -cold spells. 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 Hasn't noticed an increase in symptoms related to alcohol consumption vapes 1 vape cartridge every week (2000 puffs) Smoked cigarettes until last october 2020- before then, smoked 30 years about 1.5 packs per day Recreational pot every day; doesn't think it effects episodes. Caffeine: was 24 oz of coffee per day- decreased to 16 oz daily. Gomez is firome Family History: 2 kids - 18 and 16 years old; health is good; no grandchildren No children; one miscarriage before her first live during first trimester 4 siblings all living; in good health Parents living - in their 60s-70s; mom has cancer history- breast ca at 47 yo; dad has heart issues with tachycardia and palpitations; his palpitations are worse when he is tired, not daily. No sudden she knows of Medications: Current Outpatient Medications Medication Sig Dispense Refill losartan (Cozaar) 50 mg Tablet Take 1 tablet by mouth daily. Has not started as of 10/17/21 (Patient taking differently: Take 100 mg by mouth daily. Has not started as of 10/17/21) 90 tablet 3 venlafaxine (EFFEXOR-XR) 150 mg Capsule, Sust. Release 24 hr multivitamin (THERAGRAN) tablet OM-3/E/LINOL/ALA/OLEIC/GLA/LIP (OMEGA 3-6-9 ORAL) CALCIUM CARBONATE/VITAMIN D2 (OYSTER SHELL CALCIUM WITH D ORAL) metoprolol succinate XL (Toprol-XL) 50 mg ER 24 hr tablet Take 2 tablets by mouth every morning AND1 tablet every evening. 90 tablet 5 Objective: Vitals: Vitals: 05/02/23 1404 BP: (!) 149/104 BP Location (NB): Left arm Patient Position: Sitting Pulse: 83 SpO2: 100% Weight: 93.2 kg (205 lb 6.4 oz) Height: 167.6 cm (5' 6) Physical Exam: General- No acute distress, sitting comfortably in exam room chair HEENT- Head atraumatic, normocephalic Skin- warm, dry, intact Neck- No JVD noted Cardiovascular- S1/S2 regular rate and rhythm. No murmur, rub or gallop Lungs- Clear to auscultation bilaterally Extremities- Pulses equal bilaterally. No edema noted Neuro- A&Ox3 ECG in office today shows normal sinus rhythm 73 bpm, OH 134 ms, QRS 80 ms, QT 420 ms, QTc 462 ms. 10/17/2021: 12 lead ECG: rhythm: normal sinus rhythm, rate=64 bpm, EW=775 ms, QRSD=80 ms, IFv=723 ms. No Brugada pattern, epsilon wave, or delta wave. No PVCs. 48 hour Holter [facility] 10/09/2021 SR predominantly, avg HR 88 No pauses or AF Frequent PVCs 18%; frequent couplets up to 697 per hour and triplets up to 608 triplets per hour. One morphology. NSVT lasting up to 74 beats (rate 131 bpm); symptoms corresponded to these events. NSVT events appear to initiate with fusion rather than a tightly coupled PVC, for example. Many of the isolated PVCs also demonstrate fusion. Rate of NSVT events is not very fast; maximum around 130 bpm and some have rate < 100 bpm including the longest event Outside echo reviewed (report): 10/12/2021 Normal LV size and function; EF 60% Normal atria No valvular disease Trace MR/[place]. Normal LV size and function; EF 60% Normal atria No valvular disease Trace MR/[place]. Assessment and Plan: 43 y.o. with medical history significant for HTN, PVCs followed by Dr. Henry who presents in EP clinic for annual follow-up. We discussed monitoring PVCs with Zio patch recording to compare against previous Holter with PVC percentage 18%. No PVCs on EKG today with similar appearance in rhythm and intervals to previous EKG.She has increased her metoprolol dosage without any significant relief. Suggest continuing metoprolol at this point and following up in clinic to discuss Zio patch recording. We can discuss possible ongoing surveillance, antiarrhythmic medication, versus ablation preference. Plan: 1. Ziopatch 14 days. 2. Follow-up in 4 to 6 weeks to discuss results and future plan. Meera Austin, SCHOOL ADJUSTMENT COUNSELOR 05/02/2023 Patient Instructions Nice to meet you today Tri, we discussed your PVCs utility of monitoring your heart rhythm with aZio patch for 14 days. This was applied today I believe. I will ask the schedulers to make a follow-up appointment in about 4 to 6 weeks to discuss those results. Continue your metoprolol to use PVCs. And follow-up with your PCP regarding blood pressure management. Continue to exercise and follow a healthy lifestyle. documented in this encounter Plan of Treatment Not on file documented as of this encounter Procedures Procedure Name Priority Date/Time Associated Diagnosis Comments EKG 12-LEAD Routine 05/02/2023 2:26 PM EDT PVC (premature ventricular contraction) documented in this encounter Results * Ziopatch 48 Hrs-15 Days (05/02/2023 3:10 PM EDT) Anatomical Region Laterality Modality Other Narrative 05/28/2023 10:50 AM EDT Images from the original result were not included. [facility] ? Zio Patch? Ambulatory Cardiac Event Monitor [...] Meera Austin APRN CARDIAC SERVICES ORD ERABLES * EKG 12 Lead (05/02/2023 2:26 PM EDT) Ventricular rate 73 BPM MUSE SYSTEM Atrial Rate 73 BPM MUSE SYSTEM P-R Interval 134 ms MUSE SYSTEM QRS Duration 80 ms MUSE SYSTEM Q-T Interval 420 ms MUSE SYSTEM QTC Calculated (Bezet) 462 ms MUSE SYSTEM Calculated P [place] 62 degrees MUSE SYSTEM Calculated R [place] 18 degrees MUSE SYSTEM Calculated T [place] 34 degrees MUSE SYSTEM INTERPRETATION Normal sinus rhythm Normal ECG When compared with ECG of 25-DEC-2021 09:06, No significant change was found Confirmed by Cadence Richey ([id number]) on 05/02/2023 9:09:51 PM MUSE SYSTEM 05/02/2023 2:26 PM EDT 05/02/2023 9:09 PM EDT Meera Austin APRN ECG ORDERABLES MUSE SYSTEM documented in this encounter Visit Diagnoses Diagnosis PVC (premature ventricular contraction) Other premature beats PVC (premature ventricular contraction) Other premature beats documented in this encounter Care Teams Mental Retardation Nurse Relationship Specialty Start Date End Date Carol Vo APRN [address] [place] [address] [address] [place] [address] PCP - General Family Medicine 10/13/21 documented as of this encounter
--- OUTSIDE RECORDS SUMMARY | 2024-06-29 12:52 | XMS_ITS | Encounter Summary ---
Author Organization [facility] [place] [address] Care Team Providers Care Bulk Folder Name Role Phone Rajesh De MD Primary Care Provider + Reason for Visit * Reason Comments Infertility Encounter Details Date Type Department Care Team (Late Contact Info) Description 12/26/2010 9:45 AM EDT Follow-Up Obstetrics and Gynecology at [facility], [place], operated by [facility] [place] [phone] Nisreen Gabriel APRN [facility] [place] [address] Infertility management (Primary Dx) Discharge Disposition: Home Social History Tobacco Use Types Packs/Day Years Used Date Smoking Tobacco: Every Day Cigarettes 0.5 14 Tobacco Cessation:Ready to Q uit: No Alcohol Use Standard Drinks/Week Comments Yes 0 (1 standard drink = 0.6 oz pur e alcohol) occ Sex and Gender Information Value Date Recorded Sex Assigned at Not on file Gender Identity Not on file Sexual Orientation Not on file documented as of this encounter Last Filed Vital Signs Vital Sign Reading Time Taken Comments Blood Pressure 134/70 12/26/2010 9:30 AM EDT Pulse - - Temperature - - Respiratory Rate - - Oxygen Saturation - - Inhaled Oxygen Concentration - - Weight 71.9 kg (158 lb 8 oz) 12/26/2010 9:30 AM EDT Height 167.6 cm (5' 6) 12/26/2010 9:30 AM EDT Body Mass Index 25.58 12/26/2010 9:30 AM EDT documented in this encounter Progress Notes * Nisreen Gabriel APRN - 12/26/2010 10:26 AM EDT S: 30 year old female P2. , accompanied by spouse, who come to clinic today to discuss infertility.They were previously seen in Jul 2010. Had hign normal FSH and repeated with CCT. Day 3 FSH 7.7 Day 3 E2 20 Day 10 FSH 9.8 SA 36 mill/cc 55% motility KSM 6% They have tried 3 months of timed intercourse with clomid 50mg ovulation induction without conception. She was ovulatlory on clomid But noted moderate/severe mood disturbances and increase dysmenorrhea while taking. PMH: Migraines Depression resolved Asthma CF carrier Spouse tested with first found not to be carrier. 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 O: exam deferred P: I spent 30 minutes with couple all spent in consultation. Reviewed high normal values of FSH in CCT of 9.8 on day 10. Discussed elevations in FSH and relationship to fecundability, miscarriage andaneuploidy. Discussed next steps of IUI x 3 cycles then move to IVF if no conception. They are not clear at this time whether they can manage cost of IUI, they are certain that they can not proceed with IVF at this point in time. Given business card for PFS to discuss costs, coverage etc. At this point they would like to continue on own through end of summer and then reconsider. Discussed controversy if ovulation induction with clomid is helpful in women who are spontaneously ovulating. She declinces further clomid at this time. Will f/u at end of summer, encouraged smoking cessation and reviewed effects of smoking on fecundablity, continue with folic acid supplementation. Call with positive home , questions, problems or concerns. documented in this encounter Plan of Treatment Not on file documented as of this encounter Visit Diagnoses Diagnosis Infertility management- Primary Unspecified procreative management documented in this encounter Care Teams Bulk Folder Relationship Specialty Start Date End Date Rajesh De MD [address] [place] [address] PCP - General 08/01/10 06/04/17 documented as of this encounter
--- OUTSIDE RECORDS SUMMARY | 2024-06-29 12:52 | XMS_ITS | Encounter Summary ---
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 Joseluis Correa MD [address] [place] [address] [place] [address] [facility] [address] [place] [phone] Referral ID Status Reason Start Date Expiration Date V isits Requested Visits Authorized [id number] Closed Consult, Test & Treat PCP Updated and/or Approved 10/13/2021 10/13/2022 6 6 Encounter Details Date Type Department Care Team (Late st Contact Info) Description 10/17/2021 10:40 AM EST Office Visit Cardiology at [address] [phone] Autumn Henry MD [facility] [address] [place] (ventricular tachycardia) Social History Tobacco Use Types Packs/Day Years [...] Sign Reading Time Taken Comments Blood Pressure 154/99 10/17/2021 11:05 AM EST notified Pulse 70 10/17/2021 11:05 AM EST Temperature - - Respiratory Rate - - Oxygen Saturation 100% 10/17/2021 11: 05 AM EST Inhaled Oxygen Concentration - - Weight 97.4 kg (214 lb 12.8 oz) 10/17/2021 11:05 AM EST Height 167.6 cm (5' 6) 10/17/2021 11:0 5 AM EST patient reported Body Mass Index 34.67 10/17/2021 11:05 AM EST documented in this encounter Progress Notes * Autumn Henry MD - 10/17/2021 10:40 AM EST [facility] Electrophysiology Clinic Visit Referring Provider: Joseluis Correa Md [facility] [facility] [place] [address] Primary Care Provider: Carol Vo APRN [address] [place] [id number] Patient Identification: Tri Dias is a 41 y.o. female here for evaluation of her ventricular arrhythmias. History of Present Illness: Ms. Dias is a 41 y.o. female with a history of longstanding palpitations who presents for evaluation of management options for ventricular arrhythmias. She says she is here because she has issues with her heart bouncing all over the place. She feelslike she isn't getting enough oxygen. Sometimes these episodes are nonstop. That can last up to a few minutes at a time. Episodes can be on and off for hours. It has been for years and getting worse for the last couple of years. The episodes are more frequent and longer lasting than before. Never passed out from an episode, but she has gotten close. She gets light headed and has spots in front her eyes. When that happens, she ignores it. 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 When this happens at work she just keeps going. She is able to keep doing what she's doing. She doesn't stop doing activiites when this happens, even severe events. The longest interval between episodes is a couple of hours. She feels ok outside of episodes. She has chest tightness mostly when she is having an episode. Sometimes when she is not having an episode, she will have chest tightness. sometiems the tightness extends to her back under her shoulder blade. It is accompanied by SOB. She gets SOB when she is having episodes of palpitations, too. Sometimes she gets nauseous, too, but no diaphoresis. Never known to have a heart attack. Never had a stroke. She was called by the [facility] medical equipment technician at work and told to go to the ED based on the holter monitor. In the ED, she got Magnesium and she had CXR and ECGs. She was prescribed metoprolol in that visit. She hasn't noticed any difference in how she feels on the medicine. Since starting metoprolol, the episodes don't seem as frequent, but still having them every few hours. These episodes started in high school. They were once in a while during stress or fatigue. She would get palpitations and it has progressed since then. The chest tightness in only the last couple of years. No prior stress test. She denies lower extremity edema, orthopnea, paroxysmal nocturnal dyspnea and syncope Problem List: Patient Active Problem List Diagnosis Code ??? Female infertility of unspecified origin N97.9 Social History: Social History Socioeconomic History ??? Marital status: Spouse name: Not on file ??? Number of children: Not on file ??? Years of education: Not on file ??? Highest education level: Not on file Occupational History ??? Not on file Tobacco Use ??? Smoking status: Former Smoker Packs/day: 0.50 Years: 14.00 Pack years: 7.00 Types: Cigarettes Quit date: 10/2020 Years since quittin.9 ??? Smokeless tobacco: Never Used Vaping Use ??? 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; work is sometimes physical and mentally draining Drinks no alcohol vapes about one pack every two days; hoping to quit Smoked cigarettes until last october - before then smoked 30 years about 1.5 packs per day Recreational pot every day; doesn't think it effects episodes Caffeine: 24 oz of coffee per day Gomez is fiance Family History: 2 kids - 17 and 15 years old; health is good; no grandchildren No children; one miscarriage before her first live during first trimester 4 siblings all living; in good health Parents living - in their 60s-70s; mom has heart issues with tachycardia and palpitations; no cardiac disease in dad No sudden she knows of Medications: Current Outpatient Medications Medication Sig Dispense Refill ??? metoprolol succinate XL (Toprol-XL) 25 mg Tablet Sustained Release 24 hr TAKE 1 TABLET BY MOUTHONCE DAILY ??? venlafaxine (EFFEXOR-XR) 150 mg Capsule, Sust. Release 24 hr ??? multivitamin (THERAGRAN) tablet ??? losartan (Cozaar) 25 mg Tablet Has not started as of 10/17/21 ??? OM-3/E/LINOL/ALA/OLEIC/GLA/LIP (OMEGA 3-6-9 ORAL) ??? CALCIUM CARBONATE/VITAMIN D2 (OYSTER SHELL CALCIUM WITH D ORAL) No current facility-administered medications for this visit. Allergies: Allergies Allergen Reactions ??? Sulfamethoxazole-Trimethoprim Anaphylaxis ??? Sulfa (Sulfonamide Antibiotics) Hives ??? Corticosteroids (Glucocorticoids) Other (See Comments) painful joints Physical Exam: Vital Signs: BP (!) 154/99 (BP Location (NBP): Left arm, Patient Position: Sitting, BP Cuff Sizes: Adult (25-34 cm)) Comment: MD notified Pulse 70 Ht 167.6 cm (5' 6) Comment: patient reported Wt 97.4 kg (214 lb 12.8 oz) SpO2 100% BMI 34.67 kg/m?? General: alert, cooperative and in NAD Neurological: motor and sensory grossly normal bilaterally Psych: oriented to time, place and person and mood and affect are approprate Lungs: clear to auscultation, no wheezes, rales or rhonchi, symmetric air entry CV: normal rate, regular rhythm, normal S1, S2, no murmurs, rubs, clicks or gallops. Musculoskeletal: Moves all extremities. Ambulates without Difficulty Extremities: no pedal edema noted, warm 12 lead ECG: rhythm: normal sinus rhythm, rate=64 bpm, ZC=800 ms, QRSD=80 ms, QAx=477 ms. No Brugada pattern, epsilon wave, or delta wave. No PVCs. Outside ECG: similar to above Outside Holter reviewed in detail: 48 hour Holter SR predominantly, avg HR 88 No pauses [...] the longest event Outside echo reviewed (report): Normal LV size and function; EF 60% Normal atria No valvular disease Trace MR/[place]. Labs: From outside hospital ED visit: Unremarkable labs including CBC, CMP, TSH, troponin Assessment/plan: 1) Ventricular Arrhymias: longstanding history of palpitations correlated with ventricular arrhythmias with recent ED visit for same in response to Holter monitor. While the long history of her symptoms suggest a benign etiology, they do seem to be increasing in intensity and frequency over the past few months/years. In addition, she has developed associated chest discomfort with these events more recently which is concerning for angina. Thus, a functional assessment would be helpful. Will planto combine this with cardiac MRI to gain more detailed information regarding cardiac structure and to examine possible infiltrative etiologies. Will order cardiac stress MRI. She has pins in her knee, but no other hardware and has no significant anxiety about the study. SHe has noted no impact of the low dose metoprolol, so will increase dose in hopes of reducing symptoms while we continue the work up. ?? Current rhythm - Normal Sinus Rhythm ?? Current anti-arrhythmic - None - Medication changes - no change ?? Current rate-control medication - Metoprolol succinate 25 mg - Medication changes - increasing 50 mg BID 3) [facility] Will call with results and next steps. OK to call work. Secondarynumber: [phone] documented in this encounter Plan of Treatment Not on file documented as of this encounter Procedures Procedure Name Priority Date/Time Associated Diagnosis Comments EKG 12-LEAD Routine 10/17/2021 11:58 AM EST [place] (ventricular tachycardia) documented in this encounter Results * EKG 12 Lead (10/17/2021 11:58 AM EST) Ventricular rate 64 BPM MUSE SYSTEM Atrial Rate 64 BPM MUSE SYSTEM P-R Interval 140 ms MUSE SYSTEM QRS Duration 80 ms MUSE SYSTEM Q-T Interval 414 ms MUSE SYSTEM QTC Calculated (Bezet) 427 ms MUSE SYSTEM Calculated P [place] 53 degrees MUSE SYSTEM Calculated R [place] 17 degrees MUSE SYSTEM Calculated T [place] 35 degrees MUSE SYSTEM INTERPRETATION Normal sinus rhythm Normal ECG No previous ECGs available Confirmed by MD Larios Danette ([id number]) on 10/17/2021 12:58:27 PM MUSE SYSTEM 10/17/2021 11:5 8 AM EST 10/17/2021 12:58 PM EST Autumn Henry MD ECG ORDERABLES MUSE SYSTEM documented in this encounter Visit Diagnoses Diagnosis [place] (ventricular tachycardia) Paroxysmal ventricular tachycardia documented in this encounter Care Teams Rodding Machine Tender Relationship Specialty Start Date End Date Carol Vo APRN [address] [place] [address] [address] [place] [address] PCP - General Family Medicine 10/13/21 documented as of this encounter
--- OUTSIDE RECORDS SUMMARY | 2024-06-29 12:52 | XMS_ITS | Encounter Summary ---
[place] [address] Care Team Providers Care Investment Banking Analyst Name Role Phone Carol Vo APRN Primary Care Provider Encounter Details Date Type Department Care Team (Late st Contact Info) Description 09/19/2023 Telephone Cardiology at [address] [phone] Alisosn Oquendo Social History Tobacco Use Types Packs/Day Years [...] encounter Miscellaneous Notes * Telephone Encounter - Alisson Oquendo - 09/19/2023 9:55 AM EST LVM to call back and confirm appts for Stress Test, Labs and Appt w/ Heather Austin APRN that have been scheduled for 10/16. If she is unable to do this date, please call Jailene or Yenny to r/s the stress test while she is on the phone and to coordinate with Heather's schedule. Alisson Oquendo EP Scheduling documented in this encounter Plan of Treatment Not on file documented as of this encounter Visit Diagnoses Not on filedocumented in this encounter Care Teams Investment Banking Analyst Relationship Specialty Start Date End Date Carol Vo APRN [address] [place] [address] PCP - General Family Medicine 10/13/21 documented as of this encounter
--- OUTSIDE RECORDS SUMMARY | 2024-06-29 12:52 | XMS_ITS | Encounter Summary ---
[place] [address] Care Team Providers Care Infectious Waste Technician Name Role Phone AraceliShannan kearneyCarol CLIFFORD Primary Care Provider Encounter Details Date Type Department Care Team (Late st Contact Info) Description 10/17/2021 Telephone Cardiology at [address] [phone] Deisy Rolon Social History Tobacco Use Types Packs/Day Years [...] encounter Miscellaneous Notes * Telephone Encounter - Deisy Rolon - 10/17/2021 1:11 PM EST Records request faxed to [facility] at [phone]. Need ECG's and holter report with rhythm strips. Deisy Rolon EP Scheduling documented in this encounter Plan of Treatment Not on file documented as of this encounter Visit Diagnoses Not on filedocumented in this encounter Care Teams Infectious Waste Technician Relationship Specialty Start Date End Date Carol Vo APRN [address] [place] [address] PCP - General Family Medicine 10/13/21 documented as of this encounter
--- OUTSIDE RECORDS SUMMARY | 2024-06-29 12:52 | XMS_ITS | Encounter Summary ---
Author [facility] [place] [address] Care Team Providers Care Dough Puncher Name Role Phone Carol Vo APRN Primary Care Provider Encounter Details Date Type Department Care Team (Latest Contact Info) Description 05/02/2023 Travel Social History Tobacco Use Types Packs/Day [...] on filedocumented in this encounter Care Teams Dough Puncher Relationship Specialty Start Date End Date Carol Vo APRN [address] [place] [address] PCP - General Family Medicine 10/13/21 documented as of this encounter
--- OUTSIDE RECORDS SUMMARY | 2024-06-29 12:52 | XMS_ITS | Encounter Summary ---
[place] [address] Care Team Providers Care Vp Strategy Name Role Phone Carol Vo APRN Primary Care Provider Encounter Details Date Type Department Care Team (Late st Contact Info) Description 05/08/2023 Telephone Cardiology at [address] [phone] Alisson Oquendo Social History Tobacco Use Types Packs/Day [...] * Telephone Encounter - Alisson Oquendo - 05/08/2023 11:10 AM EDT LVM to schedule: Return in about 4 weeks (around 05/30/2023) for Zio patch results in 4 to 6 weeks to discuss w/ Heather Austin APRN. Alisson Oquendo EP Scheduling documented in this encounter Plan of Treatment Not on file documented as of this encounter Visit Diagnoses Not on filedocumented in this encounter Care Teams Vp Strategy Relationship Specialty Start Date End Date Carol Vo APRN [address] [place] [address] PCP - General Family Medicine 2/18/22 documented as of this encounter
[2024-06-29 13:11] LABS: Anion Gap 6.3 mmol/L (3-11); BUN 13 mg/dL (7-18); CO2 29.7 mmol/L (21.0-32.0); Chloride 106 mmol/L (98-107); Estimated GFR 72.13 (mL/min/1.73m2); Glucose 89 mg/dL (74-106); Potassium 3.8 mmol/L (3.5-5.1); Sodium 142 mmol/L (136-145)
[2024-07-02 15:50] LABS: Renin Activity, Plasma <0.6 ng/mL/h
== END 2024-06-29 12:50 | disposition home or self-care (01) ==
PROVIDERS: PCP Nurse Practitioner Family; Visit Provider Emergency Medicine
DX: I10 Essential (primary) hypertension (principal); F41.9 Anxiety disorder, unspecified; R51.9 Headache, unspecified
CPT/HCPCS: 36415; 80048; 84244

== ENCOUNTER 2024-06-29 13:07 | Emergency (ER) | payer OTHER, SELFPAY ==
[2024-06-29] VITALS (33 sets, daily range): BP systolic 163–242; BP diastolic 100–136; PULSE 53–65; RESP 8–20; TEMP 36.5–36.8; O2SAT 97–100
--- NOTE | 2024-06-29 13:00 | RT.EKG_ITS ---
APPROVED REPORT Exam: Resting ECG Reason for Exam: HTN, CP + SOB, cardiac hx Patient Location: E HR:55 bpm ECG Measurements Heart Rate 55 AXIS NM 165 P 53 QRSd 84 QRS 21 QT 441 T 51 QTc 421 Conclusion Sinus bradycardia...rate< 60 Probable left atrial enlargement...P >50mS, <-0.10mV V1 Physician: no stemi
[2024-06-29 14:24] LABS: Abs Immature Grans 0.04 10^3/uL (0.0-0.06); Absolute Basophil Count 0.11 10^3/uL (0.0-0.2); Absolute Eosinophil Count 0.52 10^3/uL (0.0-0.7); Absolute Lymphocyte Count 3.15 10^3/uL (1.2-3.4); Absolute Monocyte Count 0.74 10^3/uL (0.1-0.8); Absolute Neutrophil Count 3.77 10^3/uL (1.2-6.7); Basophils % 1.3 %; Eosinophils % 6.2 %; HCT 38.5 % (36.0-46.0); HGB 12.7 g/dL (11.2-15.7); Immature Grans % 0.5 %; Lymphocytes % 37.8 %; MCH 30.8 pg (27.0-33.0); MCV 93 fL (80-95); MPV 11.7 fL (8.0-11.0); Monocytes % 8.9 %; Neutrophils % 45.3 %; Platelet Count 227 10^3/uL (130-400); RBC 4.12 10^6/uL (3.93-5.22); RDW 12.7 % (11.7-14.6); RDW-SD 43.8 fL; WBC 8.33 10^3/uL (4.4-10.8)
[2024-06-29] MEDS: Prochlorperazine 10 MG/2 ML VIAL IVP (14:28)
[2024-06-29 14:44] LABS: ALT 52 U/L (14-59); AST 25 U/L (15-37); Albumin 3.4 g/dL (3.4-5.0); Alkaline Phosphatase 107 U/L (46-116); Anion Gap 4.3 mmol/L (3-11); BUN 13 mg/dL (7-18); Bilirubin, Total 0.73 mg/dL (0.2-1.0); CO2 28.7 mmol/L (21.0-32.0); CREATININE 0.9 mg/dL (0.55-1.02); Chloride 107 mmol/L (98-107); Estimated GFR 81.86 (mL/min/1.73m2); Glucose 96 mg/dL (74-106); Potassium 4.1 mmol/L (3.5-5.1); Sodium 140 mmol/L (136-145); Total Protein 7.4 g/dL (6.4-8.2); Troponin I 11 ng/L (<or=51)
[2024-06-29 14:49] LABS: Lipase 65 U/L (16-77); TSH (W/Ref FT4) 3.45 uIU/mL (0.36-3.74)
--- NOTE | 2024-06-29 15:15 | DI.CT_ITS ---
Exam(s) CT HEAD WO EXAM: CT HEAD WO CLINICAL HISTORY: elevated bp/sky. TECHNIQUE: Imaging Protocol: Axial computed tomography images with coronal and sagittal reformatted images were created and reviewed COMPARISON: No exams were available for comparison FINDINGS: Ventricles and Extra axial spaces: Normal in size and morphology for the patient's age. Hemorrhage: None. Cerebral parenchyma: No evidence of acute infarct or mass. Midline shift: None. Brainstem/Cerebellum: Normal. Calvarium: Normal. Visualized Paranasal sinuses:Clear. Mastoids: Clear. Soft Tissues: Unremarkable. ORBITS: Unremarkable. PITUITARY: Not enlarged. IMPRESSION: No acute intracranial process. RADIATION DOSE DELIVERED: Total DLP DATA REPOSITORY: All CT scans at this facility are submitted to the National Radiology Data Registry (NRDR) Dose Index Registry (DIR) with the [employer] (ACR). RADIATION OPTIMIZATION: All CT scans at this facility use at least one of these dose optimization te chniques: automated exposure control; mA and/or kV adjustment per patient size (includes targeted exa ms where dose is matched to clinical indication); or iterative reconstruction.
--- NOTE | 2024-06-29 15:41 | ED.GENADUL_ITS ---
Discharge Plan Disposition Patient Disposition: Home Condition: Stable Discharge Details Clinical Impression: Elevated blood pressure reading, Anxiety, generalized, Headache Primary Care Provider: Carol Vo ED Provider: Laura Villa Home Meds and New Rx's Prescriptions: New venlafaxine [Effexor XR] 75 mg capsule,extended release 24hr 75 mg PO QAM Qty: 7 0RF venlafaxine [Effexor XR] 37.5 mg capsule,extended release 24hr 37.5 mg PO DAILY Qty: 7 0RF chlorthalidone 25 mg tablet 25 mg PO DAILY Qty: 7 0RF potassium chloride 20 mEq tablet extended release 20 meq PO DAILY Qty: 7 0RF Continued (DME) blood pressure monitor Kit See Rx Instructions .Route Qty: 1 1RF Rx Instructions: monitor twice daily. losartan 100 mg tablet 100 mg PO DAILY Qty: 90 3RF venlafaxine [Effexor XR] 150 mg capsule,extended release 24hr 150 mg PO DAILY Qty: 90 3RF flecainide 150 mg tablet 150 mg PO Q12H metoprolol succinate 100 mg tablet extended release 24 hr 100 mg PO BID Qty: 180 3RF Rx Instructions: 1 tablet twice a day Discontinued spironolactone 25 mg tablet 50 mg PO DAILY Qty: 30 3RF Discharge Instructions Instructions: Heart Healthy Diet Additional Instructions: Stop taking the spironolactone Start the chlorthalidone tomorrow with potassium as this can cause your potassium to be low Stop taking the 850 mg of venlafaxine and start taking the combination of 75 mg +37.5 mg of Effexor to equal 112.5 mg of Effexor daily for the next 7 days You can be decreased to 75 mg of Effexor the following week to see if this improves your blood pressure as venlafaxine has a side effect of severe hypertension Continue on your metoprolol and losartan Take Tylenol as needed for headache unless your headache is becoming more severe or you have chest pain or your symptoms worsen in any way Make sure you are having at least eight 8 ounce glasses of water daily Please follow-up with your doctor at your appointment on the seventh and return earlier should you have new or worsening complaints Referrals: Carol Vo, VALERIO [Primary Care Provider] - 2 days Discharge Data Discharge Date/Time-TO BE ENTERED AT DEPARTURE: 06/29/24 16:24 HPI General Date/Time Provider Initiated Documentation: 06/29/24 13:09 . HPI Narrative: This 44-year-old female with history of hypertension, abnormal uterine bleeding, history of PVCs presents with reports of mild headache with persistently elevated blood pressure. States that this has been gradually increasing throughout the month although she is only have a headache for the past 2 days. She states her blood pressure is not significantly changed since that time. She was recently started on spironolactone, 50 mg in addition to her metoprolol and the losartan. She states that amlodipine was removed secondary to anasarca several months ago. She denies any chest pain or shortness of breath. She denies any changes in her ability to urinate or vision changes. She denies any numbness or tingling or shortness of breath. Denies any cocaine use. Does vape. Denies any history of sudden cardiac or early cardiac abnormalities in family. Related Data Home Medications ?Medication ?Instructions ?Recorded ?Confirmed losartan 100 mg tablet 100 mg PO DAILY #90 tabs 10/02/23 06/29/24 venlafaxine 150 mg 150 mg PO DAILY #90 caps 10/10/23 06/29/24 capsule,extended release 24 hr (Effexor XR) flecainide 150 mg tablet 150 mg PO Q12H 10/24/23 06/29/24 blood pressure monitor #1 ea 06/17/24 06/29/24 chlorthalidone 25 mg tablet 25 mg PO DAILY #7 tabs 06/29/24 metoprolol succinate 100 mg 100 mg PO BID #180 tabs 06/29/24 06/29/24 tablet,extended release 24 hr potassium chloride 20 mEq 20 meq PO DAILY #7 tabs 06/29/24 tablet,extended release venlafaxine 37.5 mg 37.5 mg PO DAILY #7 caps 06/29/24 capsule,extended release 24 hr (Effexor XR) venlafaxine 75 mg capsule,extended 75 mg PO QAM #7 caps 06/29/24 release 24 hr (Effexor XR) Previous Rx's ?Medication ?Instructions ?Recorded losartan 100 mg tablet 100 mg PO DAILY #90 tabs 10/02/23 venlafaxine 150 mg 150 mg PO DAILY #90 caps 10/10/23 capsule,extended release 24 hr (Effexor XR) blood pressure monitor #1 ea 06/17/24 chlorthalidone 25 mg tablet 25 mg PO DAILY #7 tabs 06/29/24 metoprolol succinate 100 mg 100 mg PO BID #180 tabs 06/29/24 tablet,extended release 24 hr potassium chloride 20 mEq 20 meq PO DAILY #7 tabs 06/29/24 tablet,extended release venlafaxine 37.5 mg 37.5 mg PO DAILY #7 caps 06/29/24 capsule,extended release 24 hr (Effexor XR) venlafaxine 75 mg capsule,extended 75 mg PO QAM #7 caps 06/29/24 release 24 hr (Effexor XR) Allergies Allergy/AdvReac Type Severity Reaction Status Date / Time Sulfa (Sulfonamide Allergy Severe HIVES Unverified 06/29/24 13:18 Antibiotics) methylprednisolone AdvReac Intermediate MUSCLE Unverified 06/29/24 13:18 PAIN, JITTERY amoxicillin trihydrate (From AdvReac Mild GI UPSET Unverified 06/29/24 13:18 Augmentin) potassium clavulanate (From AdvReac Mild GI UPSET Unverified 06/29/24 13:18 Augmentin) General Stated Complaint: GenMedical LAMONT: 3 Exam Narrative Exam Narrative: 44-year-old female in no acute distress, pupils equal round reactive to light and accommodation , lungs clear to auscultation, cardiac rate rhythm regular, no abdominal tenderness, alert and oriented x 4, no peripheral edema, distal pulses intact, no CVA tenderness, nonfocal neurological exam Course Vital Signs Vital signs: Vital Signs Temperature 36.6 C 06/29/24 13:09 Pulse 63 06/29/24 13:09 Respiratory Rate 16 06/29/24 13:09 Blood Pressure 212/136 H 06/29/24 13:09 Pulse Oximetry 98 06/29/24 13:09 Temperature 36.5 C 06/29/24 13:29 Temperature Source Temporal Artery Scan 06/29/24 13:29 Pulse 59 L 06/29/24 14:05 Pulse 61 06/29/24 14:05 Respiratory Rate 13 06/29/24 14:05 Respiratory Effort Normal, Non-Labored 06/29/24 13:26 Respiratory Depth Normal 06/29/24 13:26 Respiratory Pattern Normal 06/29/24 13:26 Blood Pressure 217/103 H 06/29/24 14:05 Blood Pressure Mean 147 06/29/24 14:05 Pulse Oximetry 100 06/29/24 14:05 Oxygen Delivery Method Room Air 06/29/24 13:29 Oxygen Flow Rate 0 06/29/24 13:09 Pain Level 3 06/29/24 13:09 Comment patient reported headache for the past 4-5 days 06/29/24 13:29 Lab/Test Results Lab/Test Results: Laboratory Tests Range/Units 06/29/24 14:05 WBC (4.4-10.8) 10^3/uL 8.33 RBC (3.93-5.22) 10^6/uL 4.12 Hgb (11.2-15.7) g/dL 12.7 Hct (36.0-46.0) % 38.5 MCV (80-95) fL 93 MCH (27.0-33.0) pg 30.8 MCHC (32.0-36.0) % 33.0 RDW (11.7-14.6) % 12.7 Plt Count (130-400) 10^3/uL 227 MPV (8.0-11.0) fL 11.7 H Immature Gran % % 0.5 Neutrophils % % 45.3 Lymphocytes % % 37.8 Monocytes % % 8.9 Eosinophils % % 6.2 Basophils % % 1.3 Nucleated RBC % (0.0-0.3) % 0.0 Absolute Neutrophils (1.2-6.7) 10^3/uL 3.77 Absolute Lymphocytes (1.2-3.4) 10^3/uL 3.15 Absolute Monocytes (0.1-0.8) 10^3/uL 0.74 Absolute Eosinophils (0.0-0.7) 10^3/uL 0.52 Absolute Basophils (0.0-0.2) 10^3/uL 0.11 Sodium (136-145) mmol/L 140 Potassium (3.5-5.1) mmol/L 4.1 Chloride (98-107) mmol/L 107 Carbon Dioxide (21.0-32.0) mmol/L 28.7 Anion Gap (3-11) mmol/L 4.3 BUN (7-18) mg/dL 13 Creatinine (0.55-1.02) mg/dL 0.9 Est GFR (CKD-EPI 2020) (mL/min/1.73m2) 81.86 Glucose (74-106) mg/dL 96 Calcium (8.5-10.1) mg/dL 9.0 Total Bilirubin (0.2-1.0) mg/dL 0.73 AST (15-37) U/L 25 ALT (14-59) U/L 52 Alkaline Phosphatase (46-116) U/L 107 Troponin I (<or=51) ng/L 11 Total Protein (6.4-8.2) g/dL 7.4 Albumin (3.4-5.0) g/dL 3.4 Lipase (16-77) U/L 65 TSH (0.36-3.74) uIU/mL 3.45 POC- Test(urine) Negative Medical Decision Making 44-year-old female alert and oriented, no acute distress with markedly elevated blood pressure. She is on venlafaxine so I wonder if this is a secondary hypertension or adverse effect from the venlafaxine which I will start to decrease. I will decrease patient to 112.5 mg this week and she will need to be further decreased to 75 mg the following week. She may need additional anxiolysis. I spoke with Dr. Christine her legal file clerk and she recommends adding on chlorthalidone, he will start patient on 12.5 and she may need adjustment further. I will discontinue the spironolactone and have patient continue on the metoprolol and the losartan which she is currently prescribed. My hope is that blood pressure will decrease with decreasing the Effexor. Patient is asymptomatic after Compazine administration and I do not suspect this is hypertensive emergency as there is no sign of end organ damage, patient has a nonfocal exam and otherwise appears quite well. Patient is otherwise well in appearance, alert, oriented, ambulatory with steady gait and is pending second troponin with likely discharge home if this is within normal limits. Of note patient has a normal-appearing EKG without evidence of ischemia or injury and a normal initial troponin level. Quality:SDOH Health Related Social Needs: No Data to Display PFSH All Active Problems (Updated 06/29/24 @ 15:47 by LUIS ARMANDO Guerrero) Headache (Acute) Anxiety, generalized (Acute) Elevated blood pressure reading (Acute) Hypertension (Chronic) Abnormal uterine bleeding (Chronic) Essential hypertension (Chronic) Nonsustained ventricular tachycardia (Chronic) Frequent PVCs (Chronic) Major depressive disorder (Chronic) Generalized anxiety disorder (Chronic) Obesity (Chronic) Medical History Female infertility, secondary Dx in her 30s. ? premature ovarian failure? Has never used BC since. Cigarette smoker Surgical History History of section S/P left knee arthroscopy (2012) History of arthroplasty of left knee History of repair of anterior cruciate ligament of left knee (2011) Family History Mother Breast cancer tested BRCA negative and Tri herself was also tested and was negative Father No problems noted. Brother No problems noted. Brother No problems noted. Sister No problems noted. Sister No problems noted. Son No problems noted. Son No problems noted. Maternal Grandfather Heart disease Hyperlipidemia Hypertension Maternal Grandmother Breast cancer x 2 Colon cancer Ovarian cancer Paternal Grandfather Heart disease Myocardial infarction Paternal Grandmother No problems noted. Social History (Updated 10/24/22 @ 14:13 by Sara Louis) Smoking/Tobacco Use Status: Former Tobacco Use tobacco type: e-cigarettes Quit Date: 08/26/19 Tobacco: How many years used: 30 Quit status: has quit before Second Hand Exposure: Yes Counseling given: provider counseling Smoking risk assessment performed?: Yes Alcohol Intake: current Alcohol Intake frequency: a few times a month Alcohol type: beer Drug use: Daily Substance use type: marijuana Counseling provided: other Details: daily use. 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[employer] [place] Pets and animals: Yes Pets and animals: cat(s) and dog(s) Sexually active: Yes Do you think of yourself as: straight/heterosexual Current gender identity: female What is your relationship status?: living with partner How often do you talk on the phone with friends or family?: once per week How often do you get together with friends or relatives?: never How often do you attend yarsani or samaritan services?: decline to answer Do you belong to any clubs or organized social groups?: no Panel score (0-1 are the most socially isolated patients): 1 What type of physical activity do you participate in: none Frequency: does not exercise Courtney/Moravian: No preference Special courtney needs: No Seatbelt use: sometimes Helmet use: Yes Helmet use: always Drive intox or ride w/intox independent driver: No Do you feel safe at home: Yes Do you feel safe in your relationship?: Yes Female Reproductive History Menstrual control method: none and other (unable to get after severe preeclampsia in number 2) History History 2 Para 2 Hx # Term Pregnancies 1 Multiple births Hx # Pregnancies 1 Ectopic pregnancies AB induced Hx Number of Living Children 2 AB spontaneous
[2024-06-29 16:03] LABS: Troponin I 13 ng/L (<or=51)
== END 2024-06-29 16:24 | disposition home or self-care (01) ==
PROVIDERS: Emergency Provider Physician Assistant; PCP Nurse Practitioner Family
DX: R51.9 Headache, unspecified (principal); I10 Essential (primary) hypertension; F41.1 Generalized anxiety disorder; R00.1 Bradycardia, unspecified
CPT/HCPCS: 80053; 81025; 83690; 93005; 96374; 99285; 70450; 84443; 84484; 85025; 93010; 99284; J0780

== ENCOUNTER 2024-07-04 15:33 | Emergency (ER) | payer OTHER, SELFPAY ==
[2024-07-04] VITALS (16 sets, daily range): BP systolic 127–151; BP diastolic 79–112; PULSE 70–84; RESP 16–18; TEMP 36.2–36.6; O2SAT 16–100
--- NOTE | 2024-07-04 15:30 | RT.EKG_ITS ---
APPROVED REPORT Exam: Resting ECG Reason for Exam: Hypotension Patient Location: E HR:74 bpm ECG Measurements Heart Rate 74 AXIS ND 132 P 80 QRSd 86 QRS 53 QT 396 T 31 QTc 441 Conclusion Sinus rhythm...normal P axis, V-rate 60- 99
--- NOTE | 2024-07-04 15:58 | W.ED.GENAD ---
Discharge Plan Disposition Patient Disposition: Home Condition: Stable Discharge Details Clinical Impression: Light-headed, Hypotension Primary Care Provider: Carol Vo ED Provider: Valerio Lynn Home Meds and New Rx's Prescriptions: Continued (DME) blood pressure monitor Kit See Rx Instructions .Route Qty: 1 1RF Rx Instructions: monitor twice daily. chlorthalidone 25 mg tablet 25 mg PO DAILY Qty: 90 3RF losartan 100 mg tablet 100 mg PO DAILY Qty: 90 3RF flecainide 150 mg tablet 150 mg PO Q12H metoprolol succinate 100 mg tablet extended release 24 hr 100 mg PO BID Qty: 180 3RF Rx Instructions: 1 tablet twice a day venlafaxine [Effexor XR] 75 mg capsule,extended release 24hr 75 mg PO QAM Qty: 7 0RF venlafaxine [Effexor XR] 37.5 mg capsule,extended release 24hr 37.5 mg PO DAILY Qty: 7 0RF Patient Comments: Pt has not started yet 07/04/24 potassium chloride 20 mEq tablet extended release 20 meq PO DAILY Qty: 7 0RF Discharge Instructions Additional Instructions: Your blood work and blood pressures were reassuring today. Discussed with your primary care provider further adjustments of your blood pressure medications. If you feel more ill or have severe worsening symptoms or severe chest pain return to the emergency department for reevaluation HPI General Mode of arrival: ambulatory. Date/Time Provider Initiated Documentation: 07/04/24 15:33. Limitations to Documentation: no limitations. Information obtained by: patient. History of Present Illness 44 year old F presents to the emergency department with the chief complaint of low blood pressure, described as moderate, Patient started experiencing this day(s) (2) and it has been intermittent. No relieving factors improve symptom(s), No exacerbating factors reported . Patient notes other (jittery and lightheaded); denies chest pain, fever/chills and shortness of breath. Related Data Home Medications ?Medication ?Instructions ?Recorded ?Confirmed losartan 100 mg tablet 100 mg PO DAILY #90 tabs 10/02/23 07/04/24 flecainide 150 mg tablet 150 mg PO Q12H 10/24/23 07/04/24 blood pressure monitor #1 ea 06/17/24 07/04/24 metoprolol succinate 100 mg 100 mg PO BID #180 tabs 06/29/24 07/04/24 tablet,extended release 24 hr potassium chloride 20 mEq 20 meq PO DAILY #7 tabs 06/29/24 07/04/24 tablet,extended release venlafaxine 37.5 mg 37.5 mg PO DAILY #7 caps 06/29/24 07/04/24 capsule,extended release 24 hr (Effexor XR) venlafaxine 75 mg capsule,extended 75 mg PO QAM #7 caps 06/29/24 07/04/24 release 24 hr (Effexor XR) chlorthalidone 25 mg tablet 25 mg PO DAILY #90 tabs 07/02/24 07/04/24 Previous Rx's ?Medication ?Instructions ?Recorded losartan 100 mg tablet 100 mg PO DAILY #90 tabs 10/02/23 blood pressure monitor #1 ea 06/17/24 metoprolol succinate 100 mg 100 mg PO BID #180 tabs 06/29/24 tablet,extended release 24 hr potassium chloride 20 mEq 20 meq PO DAILY #7 tabs 06/29/24 tablet,extended release venlafaxine 37.5 mg 37.5 mg PO DAILY #7 caps 06/29/24 capsule,extended release 24 hr (Effexor XR) venlafaxine 75 mg capsule,extended 75 mg PO QAM #7 caps 06/29/24 release 24 hr (Effexor XR) chlorthalidone 25 mg tablet 25 mg PO DAILY #90 tabs 07/02/24 Allergies Allergy/AdvReac Type Severity Reaction Status Date / Time Sulfa (Sulfonamide Allergy Severe HIVES Verified 07/04/24 15:59 Antibiotics) methylprednisolone AdvReac Intermediate MUSCLE Verified 07/04/24 15:59 PAIN, JITTERY amoxicillin trihydrate (From AdvReac Mild GI UPSET Verified 07/04/24 15:59 Augmentin) potassium clavulanate (From AdvReac Mild GI UPSET Verified 07/04/24 15:59 Augmentin) General Stated Complaint: GenMedical LAMONT: 3 Review of Systems All systems reviewed & are unremarkable except as noted in HPI and below Constitutional Constitutional: Denies chills, Denies fever(s) and Denies weakness Cardiovascular Cardiovascular: Denies chest pain, Reports lightheadedness, Denies dyspnea and Reports other Respiratory Respiratory: Denies cough and Denies dyspnea Gastrointestinal Gastrointestinal: Denies abdominal pain, Denies nausea and Denies vomiting Neurologic Neurologic: Denies weakness Psychiatric Psychiatric: Denies depression Exam Const General: no acute distress Orientation: alert [facility] Head: normal to inspection Ears: external ears normal General nose exam: external nose normal Mouth: moist mucous membranes Eyes General: appearance normal, both eyes and all related structures Neck Neck: normal visual inspection Resp Effort & Inspection: normal respiratory effort and able to speak in complete sentences Auscultation: clear to auscultation bilaterally Cardio Jugular venous pressure: no JVD Rate: regular rate GI Palpation: soft and nontender Skin General skin exam: no rashes or lesions noted Neuro General: patient alert and patient oriented x3 Extrem General: normal to inspection Psych Mental Status: mental status grossly normal Course Vital Signs Vital signs: Vital Signs Temperature 36.3 C L 07/04/24 15:34 Pulse 78 07/04/24 15:34 Respiratory Rate 16 07/04/24 15:34 Blood Pressure 147/112 H 07/04/24 15:34 Pulse Oximetry 99 07/04/24 15:34 Temperature 36.3 C L 07/04/24 15:40 Temperature Source Oral 07/04/24 15:40 Pulse 78 07/04/24 15:40 Respiratory Rate 16 07/04/24 15:40 Respiratory Effort Normal, Non-Labored 07/04/24 15:39 Blood Pressure 127/88 07/04/24 15:40 Blood Pressure Position Sitting 07/04/24 15:40 Pulse Oximetry 99 07/04/24 15:40 Oxygen Delivery Method Room Air 07/04/24 15:40 Oxygen Flow Rate 0 07/04/24 15:40 Pain Level 0 07/04/24 15:40 Medical Decision Making 44-year-old female with a history of prior nonsustained ventricular tachycardia for which she is on flecainide for, hypertension for which she is post be on chlorthalidone, losartan, metoprolol, who is currently tapering off of the flexor, comes in with 2 days of feeling lightheaded and jittery intermittently when she checks her blood pressure is low. She says the lowest it has been is been 94 systolic. She denies any chest pain, severe headaches, neck pain, difficulty breathing, abdominal pain, vomiting, diaphoresis. She currently has no symptoms other than mild lightheadedness. She has normal telemetry monitoring no focal deficits, soft nontender abdomen, clear lung sounds. Her blood pressure here is stable. Suspect she could just be overmedicated as she is on 3 antihypertensives, will evaluate for anemia, electrolyte abnormality, will check procalcitonin though my suspicion for sepsis is low. Will also check a troponin and if negative do not feel delta is indicated as she has had symptoms for 2 days. No tachycardia or hypoxia no evidence of DVT on exam to suggest PE and no tearing back pain and equal peripheral pulses so doubt dissection. Patient stable and still has a normal blood pressure. She is asymptomatic and lab work all unremarkable. She is stable for discharge and will discuss with her primary care provider further dosing adjustments of her blood pressure meds. Return precautions given Differential Diagnosis Differential Diagnosis: Venlafaxine withdrawal, anemia, overmedicated Medical Records Medical records reviewed: Yes I reviewed the patient's medical records. Lab Data Lab results reviewed: Yes I reviewed the patient's lab results. ECG Data Attestation: I personally reviewed and interpreted this ECG (s) as follows: Prior ECG tracings: available for review Interpretation: sinus rate of 74 pr 132 no stemi Quality:SDOH Health Related Social Needs: No Data to Display [facility] All Active Problems (Updated 07/04/24 @ 17:18 by Valerio Lynn MD) Hypotension (Acute) Light-headed (Acute) Abnormal uterine bleeding (Chronic) Essential hypertension (Chronic) Nonsustained ventricular tachycardia (Chronic) Frequent PVCs (Chronic) Major depressive disorder (Chronic) Generalized anxiety disorder (Chronic) Obesity (Chronic) Medical History Female infertility, secondary Dx in her 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 ? premature ovarian failure? Has never used BC since. Cigarette smoker Surgical History History of section S/P left knee arthroscopy (2012) History of arthroplasty of left knee History of repair of anterior cruciate ligament of left knee (2011) Family History Mother Breast cancer tested BRCA negative and Tri herself was also tested and was negative Father No problems noted. Brother No problems noted. Brother No problems noted. Sister No problems noted. Sister No problems noted. Son No problems noted. Son No problems noted. Maternal Grandfather Heart disease Hyperlipidemia Hypertension Maternal Grandmother Breast cancer x 2 Colon cancer Ovarian cancer Paternal Grandfather Heart disease Myocardial infarction Paternal Grandmother No problems noted. Social History (Updated 10/24/22 @ 14:13 by Sara Louis) Smoking/Tobacco Use Status: Former Tobacco Use tobacco type: e-cigarettes Quit Date: 08/26/19 Tobacco: How many years used: 30 Quit status: has quit before Second Hand Exposure: Yes Counseling given: provider counseling Smoking risk assessment performed?: Yes Alcohol Intake: current Alcohol Intake frequency: a few times a month Alcohol type: beer Drug use: Daily Substance use type: marijuana Counseling provided: other Details: daily use. 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 [employer] Pets and animals: Yes Pets and animals: cat(s) and dog(s) Sexually active: Yes Do you think of yourself as: straight/heterosexual Current gender identity: female What is your relationship status?: living with partner How often do you talk on the phone with friends or family?: once per week How often do you get together with friends or relatives?: never How often do you attend sikhism or temple services?: decline to answer Do you belong to any clubs or organized social groups?: no Panel score (0-1 are the most socially isolated patients): 1 What type of physical activity do you participate in: none Frequency: does not exercise Courtney/Baptist: No preference Special courtney needs: No Seatbelt use: sometimes Helmet use: Yes Helmet use: always Drive intox or ride w/intox four horse hitch driver: No Do you feel safe at home: Yes Do you feel safe in your relationship?: Yes Female Reproductive History Menstrual control method: none and other (unable to get after severe preeclampsia in number 2) History History 2 Para 2 Hx # Term Pregnancies 1 Multiple births Hx # Pregnancies 1 Ectopic pregnancies AB induced Hx Number of Living Children 2 AB spontaneous
[2024-07-04 16:15] LABS: Abs Immature Grans 0.03 10^3/uL (0.0-0.06); Absolute Eosinophil Count 0.27 10^3/uL (0.0-0.7); Absolute Lymphocyte Count 2.83 10^3/uL (1.2-3.4); Absolute Monocyte Count 0.68 10^3/uL (0.1-0.8); Absolute Neutrophil Count 4.06 10^3/uL (1.2-6.7); Basophils % 1.3 %; Eosinophils % 3.4 %; HCT 43.8 % (36.0-46.0); HGB 14.6 g/dL (11.2-15.7); Immature Grans % 0.4 %; Lymphocytes % 35.5 %; MCH 30.5 pg (27.0-33.0); MCHC 33.3 % (32.0-36.0); MCV 92 fL (80-95); MPV 11.5 fL (8.0-11.0); Monocytes % 8.5 %; Neutrophils % 50.9 %; Platelet Count 295 10^3/uL (130-400); RBC 4.78 10^6/uL (3.93-5.22); RDW 12.4 % (11.7-14.6); RDW-SD 41.9 fL; WBC 7.97 10^3/uL (4.4-10.8)
[2024-07-04 16:33] LABS: ALT 45 U/L (14-59); AST 26 U/L (15-37); Alkaline Phosphatase 115 U/L (46-116); Anion Gap 10.2 mmol/L (3-11); BUN 19 mg/dL (7-18); Bilirubin, Total 0.99 mg/dL (0.2-1.0); CO2 26.8 mmol/L (21.0-32.0); CREATININE 1.1 mg/dL (0.55-1.02); Calcium 9.5 mg/dL (8.5-10.1); Chloride 101 mmol/L (98-107); Estimated GFR 64.34 (mL/min/1.73m2); Glucose 100 mg/dL (74-106); Magnesium 1.9 mg/dL (1.8-2.4); Potassium 4.8 mmol/L (3.5-5.1); Sodium 138 mmol/L (136-145); Total Protein 8.6 g/dL (6.4-8.2); Troponin I 14 ng/L (<or=51)
[2024-07-04 16:51] LABS: Procalcitonin < 0.10 ng/mL
== END 2024-07-04 17:30 | disposition home or self-care (01) ==
PROVIDERS: Emergency Provider Emergency Medicine; PCP Nurse Practitioner Family
DX: I95.9 Hypotension, unspecified (principal); R42 Dizziness and giddiness; I10 Essential (primary) hypertension; Z87.891 Personal history of nicotine dependence
CPT/HCPCS: 36415; 80053; 84145; 93005; 99284; 83735; 84484; 85025; 93010

== ENCOUNTER 2024-07-10 13:51 | Outpatient (CLI) | payer OTHER, SELFPAY ==
--- NOTE | 2024-07-10 13:45 | RT.EKG_ITS ---
APPROVED REPORT Exam: Resting ECG Reason for Exam: SOB/palpitations Patient Location: O HR:97 bpm ECG Measurements Heart Rate 97 AXIS [place] 124 P 68 QRSd 83 QRS 11 QT 372 T 8 QTc 473 Conclusion Sinus rhythm...normal P axis, V-rate 50- 99 Left atrial enlargement...P, P'>60mS, <-0.15mV V1 Borderline T wave abnormalities...T/QRS ratio < 1/20 or flat T
== END 2024-07-10 13:52 | disposition home or self-care (01) ==
LOC: DI.CM 13:52
PROVIDERS: PCP Nurse Practitioner Family; Visit Provider Nurse Practitioner Family
DX: R42 Dizziness and giddiness (principal); R06.00 Dyspnea, unspecified
CPT/HCPCS: 93010

== ENCOUNTER 2024-12-10 19:50 | Outpatient (REF) | payer OTHER, SELFPAY ==
--- NOTE | 2024-12-10 15:00 | PAPFT_PTH ---
PATIENT: Tri Dias LOC: [facility] U#:[id number] AGE/SX: 44/F ROOM: RE12/10/[address]: TAYLOR Oswald : 1980 BED: DIS: 12/10/2024 SPEC #: [id number] RECD: 12/11/24 13:05 STATUS: DELFIN REShashi #: [id number] LILI: 12/10/24 15:[address]: Carol Vo DEPT: [facility] Cytology RECD BY: Laura Beltran Tissues: 1 - CX/ENDOCX FOR PAP SMEARS Procedures: PAP THIN PREP/UVM Screening HPV DNA PROBE Comments: [id number] (HPV 16 & 18/45) (CHLAMYDIA/GC)
[2024-12-14 12:50] LABS: Chlamydia Result Negative (Negative); GC Result Negative (Negative)
== END 2024-12-10 19:51 | disposition home or self-care (01) ==
LOC: LBN 19:50
PROVIDERS: PCP Nurse Practitioner Family; Visit Provider Nurse Practitioner Family
DX: Z12.4 Encounter for screening for malignant neoplasm of cervix (principal); N76.0 Acute vaginitis
CPT/HCPCS: 87491; 87591; 88142; 87624

== ENCOUNTER 2024-12-23 12:15 | Outpatient (REF) | payer OTHER, SELFPAY ==
[2024-12-26 16:04] LABS: Calprotectin 776 mcg/g
== END 2024-12-23 12:16 | disposition home or self-care (01) ==
LOC: LBN 12:15
PROVIDERS: PCP Nurse Practitioner Family; Visit Provider Nurse Practitioner Family
DX: R19.4 Change in bowel habit (principal); K52.9 Noninfective gastroenteritis and colitis, unspecified
CPT/HCPCS: 82710; 83993

== ENCOUNTER 2025-01-01 00:44 | Outpatient (CLI) | payer OTHER, SELFPAY ==
--- NOTE | 2025-01-01 07:30 | DI.MAMMO_ITS ---
Exam(s) MAMMO SCREENING EXAM: MAMMO SCREENING CLINICAL HISTORY: screening,Z12.39. TECHNIQUE: Bilateral full field digital CC and MLO mammographic images were obtained with 3D tomosyn thesis and utilizing computer aided detection (CAD). COMPARISON: Prior mammogram of 2018 was reviewed. FINDINGS: No new left breast findings. In the right breast there are 3-possibly 4 nodular densities. The largest of these exhibits minimal change from 2018 and is lobulated and noncalcified and located 4 cm in from the nipple on the CC view . There are 2 other nodules located more laterally approximately 7 and 8 cm in from the nipple on th e CC view. Another possible 4th nodules located anteriorly, slightly medial of center on the CC view , 3 cm in from the nipple. There are no malignant-appearing microcalcification groups associated with these nodular densities no r elsewhere in either breast. There is no significant architectural distortion nor skin thickening-retraction. IMPRESSION: 1. No radiographic evidence of malignancy in left breast. 2. Multiple right breast nodular densities which are more prominent than the prior 2018 mammogram. S pot compression right breast views and breast ultrasound recommended. BI-RADS Category 0 - Incomplete: Need additional imaging evaluation Breast Density - Category C - The breast are heterogeneously dense, which may obscure small masses. Breast density Category C or D implies that the patient has dense breast tissue. Dense breast tissue can make it harder to find cancer on a mammogram. Dense breast tissue is also associated with an incr eased risk of breast cancer. This information about the result of the mammogram report was provided to the patient to raise their awareness. Use this report when you speak with the patient about their risks for breast cancer, which includes their family history. At that time, you may recommend additional screening tests (Ultrasoun d or MRI) as these tests may add significant information. A negative radiographic report should not delay biopsy if a dominant or clinically suspicious mass is present. Up to ten percent of cancers are not identified on mammography. A negative report may reinforce clinical impression. Adenosis and dense breasts may obscure an underlying neoplasm. False positive reports average 6 to 10%. Patient will receive a letter notifying them of these results.
== END 2025-01-01 01:04 ==
LOC: DI 00:44
PROVIDERS: PCP Nurse Practitioner Family; Visit Provider Nurse Practitioner Family
DX: Z12.31 Encounter for screening mammogram for malignant neoplasm of breast (principal); R92.333 Mammographic heterogeneous density, bilateral breasts
CPT/HCPCS: 77063; 77067

== ENCOUNTER 2025-01-01 21:09 | Outpatient (CLI) | payer OTHER, SELFPAY ==
[2025-01-01 16:11] LABS: Abs Immature Grans 0.02 10^3/uL (0.0-0.06); Absolute Basophil Count 0.09 10^3/uL (0.0-0.2); Absolute Eosinophil Count 0.17 10^3/uL (0.0-0.7); Absolute Lymphocyte Count 2.98 10^3/uL (1.2-3.4); Absolute Monocyte Count 0.56 10^3/uL (0.1-0.8); Absolute Neutrophil Count 4.35 10^3/uL (1.2-6.7); Basophils % 1.1 %; Eosinophils % 2.1 %; HCT 37.8 % (36.0-46.0); HGB 12.6 g/dL (11.2-15.7); Immature Grans % 0.2 %; Lymphocytes % 36.5 %; MCH 29.9 pg (27.0-33.0); MCHC 33.3 % (32.0-36.0); MCV 90 fL (80-95); MPV 11.6 fL (8.0-11.0); Monocytes % 6.9 %; Neutrophils % 53.2 %; Platelet Count 294 10^3/uL (130-400); RBC 4.21 10^6/uL (3.93-5.22); RDW 12.4 % (11.7-14.6); RDW-SD 40.7 fL; WBC 8.17 10^3/uL (4.4-10.8)
[2025-01-01 16:13] LABS: ESR 6 mm/hr (0-20)
[2025-01-01 16:34] LABS: Hemoglobin A1C 5.3 % (<5.7)
[2025-01-01 17:48] LABS: ALT 55 U/L (14-59); AST 27 U/L (15-37); Albumin 3.8 g/dL (3.4-5.0); Alkaline Phosphatase 104 U/L (46-116); Anion Gap 5.4 mmol/L (3-11); BUN 12 mg/dL (7-18); CO2 28.6 mmol/L (21.0-32.0); Calculated LDL 66 mg/dL (<100); Chloride 104 mmol/L (98-107); Cholesterol 134 mg/dL (<200); Estimated GFR 72.13 (mL/min/1.73m2); Ferritin 34 ng/mL (8-252); Glucose 65 mg/dL (74-106); HDL Cholesterol 47 mg/dL (>or=50); Potassium 3.9 mmol/L (3.5-5.1); Sodium 138 mmol/L (136-145); TSH (W/Ref FT4) 1.84 uIU/mL (0.36-3.74); Total Protein 7.6 g/dL (6.4-8.2); Triglyceride 109 mg/dL (<150); Vitamin B12 752 pg/mL (193-986)
[2025-01-01 18:01] LABS: C-Reactive Protein < 0.50 mg/dL (<or=0.5)
[2025-01-05 10:52] LABS: IgA 107 mg/dL (85-499); Interpretation (See Note); Tissue Transglutaminase IgA <4.0 CU (<20.0)
== END 2025-01-01 21:10 | disposition home or self-care (01) ==
LOC: LBO 21:09
PROVIDERS: PCP Nurse Practitioner Family; Visit Provider Nurse Practitioner Family
DX: R19.4 Change in bowel habit (principal); K52.9 Noninfective gastroenteritis and colitis, unspecified; Z00.00 Encounter for general adult medical examination without abnormal findings
CPT/HCPCS: 36415; 80053; 80061; 82784; 83516; 85652; 82607; 82728; 83036; 84443; 85025; 86140

== ENCOUNTER 2025-01-06 02:04 | Outpatient (CLI) | payer OTHER, SELFPAY ==
--- NOTE | 2025-01-06 | DI.US_ITS ---
Exam(s) MG MAMMO SCREEN CALL BACK UNI US BREAST RT COMPLETE EXAM: MG MAMMO SCREEN CALL BACK UNI and U/S breast RT complete CLINICAL HISTORY: F/U ABNL MAMMO, R92.8, MULTIPLE RT BREAST NODULAR DENSITIES,MORE PROMINENT. TECHNIQUE: Craniocaudal and mediolateral oblique Full Field Digital Mammography views of the right b reast with Computer Aided Diagnosis followed by Tomosynthesis and complete right breast ultrasound. All 4 quadrants of the right breast were evaluated sonographically. This includes the axilla and ret roareolar region. COMPARISON: Comparison is made with prior examinations. FINDINGS: Mammography/Tomosynthesis: Masses/Architectural Distortion: The nodule in the outer right breast persists on the additional view s. The other suspected nodules do not persist on the additional views. There are no areas of tessie ectural distortion. Microcalcifictions: No suspicious pleomorphic-type are seen. Skin Thickening/Nipple Retraction: None. Complete right breast US: Echotexture: Normal appearance of the glandular tissue. Shadowing: No suspicious foci. Cyst: Note is made of a 3 mm cyst at the 5 o'clock position of the right breast 3 cm from the nipple. Solid lesions: There is a mildly lobulated solid hypoechoic nodule at the 7 o'clock position of the r ight breast 3 cm from the nipple. This likely corresponds to the mammographic abnormality. It is mo st suggestive of a benign lesion such as a fibroadenoma. Ductal dilation: None. IMPRESSION: 1. No definite evidence for malignancy is seen at this time. 2. A six-month follow-up right mammogram and ultrasound are requested for re-evaluation. 3. The findings were discussed with the patient on the date of the examination. BI-RADS Category 3 - 6 month - Probably Benign Finding: Recommend follow-up imaging in 6 months Breast Density - Category C - The breast are heterogeneously dense, which may obscure small masses. Breast density Category C or D implies that the patient has dense breast tissue. Dense breast tissue can make it harder to find cancer on a mammogram. Dense breast tissue is also associated with an incr eased risk of breast cancer. This information about the result of the mammogram report was provided to the patient to raise their awareness. Use this report when you speak with the patient about their risks for breast cancer, which includes their family history. At that time, you may recommend additional screening tests (Ultrasoun d or MRI) as these tests may add significant information. A negative radiographic report should not delay biopsy if a dominant or clinically suspicious mass is present. Up to ten percent of cancers are not identified on mammography. A negative report may reinforce clinical impression. Adenosis and dense breasts may obscure an underlying neoplasm. False positive reports average 6 to 10%. Patient will receive a letter notifying them of these results.
== END 2025-01-06 02:24 ==
LOC: DI 02:05
PROVIDERS: PCP Nurse Practitioner Family; Visit Provider Nurse Practitioner Family
DX: Z12.31 Encounter for screening mammogram for malignant neoplasm of breast (principal); R92.8 Other abnormal and inconclusive findings on diagnostic imaging of breast; R92.333 Mammographic heterogeneous density, bilateral breasts
CPT/HCPCS: 76642; 77063; 77067

== ENCOUNTER 2025-02-15 12:02 | Day surgery (SDC) | payer OTHER, SELFPAY ==
--- NOTE | 2025-02-14 20:20 | W.PM.DSUDISC ---
Date of service: 02/15/25 Discharge Plan Disposition Patient Disposition: Home Condition: Good Discharge Details Reason For Visit: diagnostic colonoscopy Attending Provider: Tay Snell Primary Care Provider: Carol Vo Home Meds and New Rx's Prescriptions: Continued flecainide 150 mg tablet 150 mg PO Q12H Qty: 180 3RF metoprolol succinate 100 mg tablet extended release 24 hr 100 mg PO BID Qty: 180 3RF Rx Instructions: 1 tablet twice a day losartan 100 mg tablet 100 mg PO DAILY Qty: 90 3RF Discontinued bisacodyl [Dulcolax (bisacodyl)] 5 mg tablet,delayed release (DR/EC) 5 mg PO ONCE Qty: 4 0RF Rx Instructions: take per colonoscopy instructions polyethylene glycol 3350 17 gram/dose powder 238 g PO ONCE Qty: 238 0RF Rx Instructions: take per colonoscopy instructions Discharge Instructions Additional Instructions: Tri, it was nice seeing you today, and hope you feel well after the colonoscopy. Things went very smoothly. Your prep was excellent, negative everything quite nicely. I saw no signs of any tumors or polyps. I did not see any signs of Crohn's disease or ulcerative colitis. There are a few punctate areas of inflammation in the sigmoid colon. Honestly these are pretty typical even as a simple result of the bowel prep itself. I did do several biopsies in the terminal ileum, as well as multiple places all along the length of the large intestine, including these little areas of inflammation. The pathology results from the biopsy will take a week or 2 to get back, but once I have that information I will be in touch. If you need anything in the meantime, please do not hesitate to ask. 1. If tolerated, consume a soft, low fiber diet for 1-2 days. 2[address] Do not drive, drink alcohol, operate machinery, make critical decisions, or do activities that require coordination or balance for 24 hours. 3. Because air was put into your colon during the procedure, expelling air from your rectum (passing gas or farting) is normal. 4. You may not have a bowel movement for 1-3 days because of the colonoscopy prep. This is normal. 5. Go directly to the emergency room if you notice any of the following: Develop chills (warm to touch), or if you have a thermometer and your temperature is above 101 Difficulty breathing or difficultly swallowing Persistent vomiting Severe abdominal pain, other than gas cramps Severe chest pain Black, tarry stools Any bleeding ? exceeding one tablespoon 6. Call your physician if the site where your intravenous was started becomes red, swollen, painful, and warm to touch. 7. Your physician has reviewed your pre-procedure medications. Please continue to take those medications as previously ordered. You will be given specific information/education regarding any changes to your medications before leaving. Activity:: Activity as Tolerated Diet:: As Tolerated Discharge Orders Discharge Orders: Discharge Order (Routine); Ordered 02/14/25 Ordered By: Tay Snell DS: Diagnosis Discharge Diagnosis (1) Chronic diarrhea: Status: Chronic Asessment and Plan: Follow-up on biopsy results
--- NOTE | 2025-02-14 20:22 | W.COLOREPORT ---
Date of service: 02/15/25 Time of Service: 14:43 Colonoscopy Report Date of procedure: 02/15/25 Pre-op diagnosis general: diarrhea Post-op diagnosis procedure note: same Procedure: colonoscopy with biopsies Surgeon: Tay Snell Anesthesia Type: General:No Airway Estimated blood loss (mL): 10 Pathology: other (Nondirected biopsies of the terminal ileum, and multiple colonic biopsies) Complications: None Disposition: same day Indications: Tri is a 45 year old woman with diarrhea and elevated fecal calprotectin. Prep: Miralax/Dulcolax Procedure Start Time: 14:15 Procedure End Time: 14:33 Retraction Time: 13 Findings: Rare punctate areas of colitis in the sigmoid Procedure Description: After the induction of anesthesia, and with Tri in left lateral decubitus position, I began by performing an external anorectal exam.? Perineum and skin were normal, as was the anal verge.? There was no evidence of external hemorrhoids.? Next, I performed a digital rectal exam.? I did not appreciate any abnormal findings.? Next, I advanced a colonoscope into the rectal vault.? I performed retroflexion.? This appeared normal.? The remainder of the rectum was carefully examined with the assistance of narrowband imaging. I did not see any signs of inflammation. I saw no signs of ulcerative colitis. Using irrigation, I then advanced the colonoscope beyond the rectal folds and into the sigmoid colon before advancing towards the cecum.? There were just a few areas of inflammation in the sigmoid segment that were really quite small. These are extremely subtle. Some of the features appeared consistent with segmental colitis, although I saw no diverticula within the area.? I continued advancing towards the right side the scope was noted to be in the cecum by identification of the ileocecal valve and appendiceal orifice.? I cannulated the terminal ileum for several centimeters. The mucosa villi were obvious and prominent. I saw no evidence of any cobblestoning, or other features consistent with Crohn's. I did perform some nondirected cold forceps biopsies of the terminal ileum. I then began withdrawing the colonoscope using repeated irrigation as necessary for full evaluation of the colonic mucosa. I took multiple cold forceps biopsies all along the length of the colon to rule out collagenous colitis. The punctate areas of inflammation in the sigmoid segment were also included. Once the scope was withdrawn to the level of the rectum, great care was taken to examine portions of the rectal folds.? Finally, the scope was withdrawn and the patient was brought to the same-day surgery recovery unit as the anesthetic wore off. ?The findings and instructions were shared with the patient prior to discharge. [place] Bowel Prep [place] Bowel Prep Right Colon: 3 Left Colon: 3 Transverse Colon: 3 Total Score: 9
[2025-02-15 12:07] VITALS: BP 174/111; PULSE 88; RESP 18; TEMP 36.2; O2SAT 99
[2025-02-15 12:20] VITALS: BP 174/111; PULSE 88; RESP 18; TEMP 36.2; O2SAT 99
[2025-02-15] MEDS: Lactated Ringers 1,000 ML 80 ML IV (12:43)
--- NOTE | 2025-02-15 13:51 | W.ANESPRE ---
General Info Date of Service Date Performed: 02/15/25 Height: 5 ft 6 in Weight: 82.7 kg Body Mass Index (BMI): 29.4 Surgical Procedure: Operation Date: 02/15/25 13:35 Proposed Procedure Side Surgeon mildred Snell MD Meds Allergies and Home Medications Allergies Allergy/AdvReac Type Severity Reaction Status Date / Time Sulfa (Sulfonamide Allergy Severe HIVES Verified 02/15/25 12:29 Antibiotics) methylprednisolone AdvReac Intermediate MUSCLE Verified 02/15/25 12:29 PAIN, JITTERY amoxicillin trihydrate (From AdvReac Mild GI UPSET Verified 02/15/25 12:29 Augmentin) potassium clavulanate (From AdvReac Mild GI UPSET Verified 02/15/25 12:29 Augmentin) venlafaxine AdvReac Visual Verified 02/15/25 12:29 Disturbances Home Medication ?Medication ?Instructions ?Recorded metoprolol succinate 100 mg 100 mg PO BID #180 tabs 06/29/24 tablet,extended release 24 hr losartan 100 mg tablet 100 mg PO DAILY #90 tabs 09/28/24 flecainide 150 mg tablet 150 mg PO Q12H #180 tabs 12/10/24 Current Visit Medications: Current Medications Generic Name Dose Route Start Last Admin Trade Name Freq PRN Reason Stop Dose Admin Ringer's Solution 1,000 mls @ 80 mls/hr 02/15/25 06:00 02/15/25 12:43 IV 02/15/25 23:59 80 mls/hr INFUSION ASHLEY Administration IV Miscellaneous Supplies 1 each 02/15/25 06:00 Iv Access IV 02/15/25 23:59 DIRECTED ASHLEY Sodium Chloride 0 ml 02/15/25 06:00 Normal Saline Flush 10 Ml Syr IV 02/15/25 23:59 PRN PRN Sodium Chloride 0 ml 02/15/25 06:00 Normal Saline 10 Ml Vial IJ 02/15/25 23:59 DIRECTED PRN Sterile Water 0 ml 02/15/25 06:00 Water,Injection,Sterile 10 Ml Vial IJ 02/15/25 23:59 DIRECTED PRN PFSH Active Problems Active Problems: Problem Status Onset Code Chronic diarrhea Chronic K52.9 Change in bowel habits Chronic R19.4 Essential hypertension Chronic I10 Nonsustained ventricular tachycardia Chronic I47.2 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 Obesity Chronic E66.9 Cervical high risk HPV (human papillomavirus) test positive Chronic R87.810 Cigarette smoker Chronic F17.210 Medical History Medical History Generalized anxiety disorder Major depressive disorder Abnormal uterine bleeding Surgical History Surgical History History of endometrial biopsy (06/22/24) History of section S/P left knee arthroscopy (2012) History of arthroplasty of left knee History of repair of anterior cruciate ligament of left knee (2011) Tobacco Smoking/Tobacco Use Status: Current every day Tobacco Type: e-cigarettes Passive smoking exposure: No Second hand exposure: Yes Counseling given: provider counseling Alcohol Alcohol Intake: current Alcohol intake frequency: a few times a month Alcohol type: beer Substance Use Substance use: Daily Substance use type: marijuana Counseling provided: other Prental History History 2 Para 2 Hx # Term Pregnancies 1 Multiple births Hx # Pregnancies 1 Ectopic pregnancies AB induced Hx Number of Living Children 2 AB spontaneous Vital Signs and Lab Results Vital Signs Most Recent Vital Signs in EMR: Most Recent Vital Signs Temp Pulse Resp BP Pulse Ox 36.2 C L 88 18 174/111 H 99 02/15/25 12:20 02/15/25 12:20 02/15/25 12:20 02/15/25 12:20 02/15/25 12:20 Anesthesia Assessment and Plan Anesthesia History Personal History: No History of Anesthesia Complications Family History: No Family History of Anesthesia Complications Exercise Tolerance Exercise Tolerance: Metabolic Equivalents>4 Pertinent Negatives Pertinent Negatives: No Symptoms of GERD Cardiac & Pulmonary Exam Cardiac Exam: Normal S1/S2 Heart Sounds Pulmonary Exam: Clear Bilateral Breath Sounds Implantable Cardiac Device Does patient have a Pacemaker or an ICD?: No Airway Exam Known Difficult Airway: No Mallampati Class: 2 Mouth Opening: Normal (> 3cm) Thyromental Distance: Greater than 3 cm Neck Range of Motion: Full ROM Neck Circumference: Normal Teeth Condition: Normal Dentition ASA Classification ASA Score: ASA 3 Emergency Case?: No NPO Status NPO Status: NPO Clears >2 hours, Solids >8 hours Status Status: Negative HCG Anesthesia Plan Resuscitation Status: Full Code Anesthesia Technique: General Anesthesia Airway Planned: Natural Airway Monitors Used: Standard Monitors
[2025-02-15 13:53] VITALS: BMI 29.4
--- NOTE | 2025-02-15 14:27 | BOWEL_PTH ---
PATIENT: Tri Dias LOC: [facility] U#:[id number] AGE/SX: 45/F ROOM: RE02/15/[address]: Tay Snell MD : 1980 BED: DIS: 02/15/2025 SPEC #: [id number] RECD: 02/15/25 17:59 STATUS: DELFIN RE #: [id number] LILI: 02/15/25 14:[address]: Tay Snell DEPT: Surgical Specimen RECD BY: Laura Beltran ENTERED: 02/15/25 18:00 SP TYPE: Bowel OTHR DR: Carol Vo, TAYLOR Tissues: 1 - BIOPSY BOWEL 2 - BIOPSY BOWEL Procedures: GROSS AND MICRO LEVEL 4 Comments: [id number]
[2025-02-15 14:45] VITALS: BP 149/93; PULSE 78; RESP 16; TEMP 36.8; O2SAT 100
--- NOTE | 2025-02-15 14:57 | W.ANESPOSTOP ---
Postoperative Evaluation Date, Time and Location Date Performed: 02/15/25 Time Performed: 14:57 Patient Location: Day Surgery Unit Vital Signs Most Recent Imported Vital Signs: Most Recent Vital Signs Temp Pulse Resp BP Pulse Ox 36.8 C 78 16 149/93 H 100 02/15/25 14:45 02/15/25 14:45 02/15/25 14:45 02/15/25 14:45 02/15/25 14:45 Pain Score Most Recent Pain Score: Most Recent Pain Score Pain Level 0 02/15/25 14:45 Assessment Mental Status: Awake (Alert & Oriented to Patient Baseline) Airway and Respiratory Function: Patent airway with normal (patient baseline) respiratory exam Cardiovascular Function: Hemodynamically Stable Hydration Status: Adequately Hydrated Nausea & Vomiting: No Nausea or Vomiting Pain: Pt. Denies Any Pain Peripheral Nerve Block: Patient did not receive a nerve block
[2025-02-15 15:12] VITALS: BP 157/97; PULSE 79; RESP 18; TEMP 37; O2SAT 100
== END 2025-02-15 15:18 | disposition home or self-care (01) ==
LOC: SUR 12:03
PROVIDERS: PCP Nurse Practitioner Family; Visit Provider Surgery
PROC: 0DJD8ZZ Inspection of Lower Intestinal Tract, Via Natural or Artificial Opening Endoscopic (ICD-10-PCS; CPT 45378; principal; 2025-02-15 13:30)
DX: K52.9 Noninfective gastroenteritis and colitis, unspecified (principal)
CPT/HCPCS: 45380; 81025; 88305; J0360; J2704

== ENCOUNTER → 2025-07-09 02:56 | Outpatient (CLI) | payer OTHER, SELFPAY ==
--- NOTE | 2025-07-09 07:30 | DI.US_ITS ---
Exam(s) MG MAMMO DIAGNOSTIC UNI US BREAST RT COMPLETE EXAM: MG MAMMO DIAGNOSTIC UNI RIGHT COMPLETE RIGHT BREAST ULTRASOUND CLINICAL HISTORY: 6 month f/u,INCONCLUSIVE MAMMO,R92.2. TECHNIQUE: Unilateral RIGHT BREAST CC AND MLO mammographic images were obtained with 3D tomosynthesis technique and utilizing computer aided detection (CAD). COMPLETE RIGHT BREAST ULTRASOUND performed including all 4 quadrants as well as the right axilla. COMPARISON: Prior mammograms were reviewed, the most recent being December 2024 dating back to 2018.. Prior ultrasound also reviewed This 45 old patient apparently had an excisional biopsy of the right breast (benign findings) over 20 years ago. She does not remember the pathology. FINDINGS: DIAGNOSTIC RIGHT BREAST MAMMOGRAM: The slightly lobulated nodule at the 7 o'clock position remains unchanged. Smaller benign-appearing nodule more laterally in the right breast also again noted and has the appearance of a probable benign intramammary lymph node. There are no new spiculated masses nor malignant-appearing microcalcification groups. No new architectural distortion or skin thickening-retraction. COMPLETE RIGHT BREAST ULTRASOUND: At the 5 o'clock position there is again noted a benign 3 millimeter microcyst. At the 7 o'clock position there is again noted a well-defined lobulated slightly wider than taller nodule measuring 9 x 6 mm, unchanged from prior ultrasound of December 2024. It exhibits neutral through transmission. No decreased through transmission. It is probably a fibroadenoma. This corresponds to the finding at similar location on the mammogram which has been present on the mammogram since at least 2018. There are no other focal ultrasound findings in all 4 quadrants, this implying that the other benign-appearing nodule seen on the mammogram is most probably a benign intramammary lymph node. IMPRESSION: 1. Stable benign-appearing right breast findings as described above. 2. Appropriate follow-up is repeat ultrasound at time for next bilateral yearly mammogram which should be in 6 months from now. . The patient was informed of the findings and follow-up recommendations by myself prior to leaving the department today. BI-RADS Category 3 - 6 month - Probably Benign Finding: Recommend follow-up mammography in 6 months Breast Density - Category C - The breast are heterogeneously dense, which may obscure small masses. Breast density Category C or D implies that the patient has dense breast tissue. Dense breast tissue can make it harder to find cancer on a mammogram. Dense breast tissue is also associated with an increased risk of breast cancer. This information about the result of the mammogram report was provided to the patient to raise their awareness. Use this report when you speak with the patient about their risks for breast cancer, which includes their family history. At that time, you may recommend additional screening tests (Ultrasound or MRI) as these tests may add significant information. A negative radiographic report should not delay biopsy if a dominant or clinically suspicious mass is present. Up to ten percent of cancers are not identified on mammography. A negative report may reinforce clinical impression. Adenosis and dense breasts may obscure an underlying neoplasm. False positive reports average 6 to 10%. Patient will receive a letter notifying them of these results.
== END ==
LOC: DI 02:57
PROVIDERS: PCP Nurse Practitioner Family; Visit Provider Nurse Practitioner Family
DX: R92.2 Inconclusive mammogram (principal); Z12.31 Encounter for screening mammogram for malignant neoplasm of breast
CPT/HCPCS: 76642; 77061; 77065; G0279